=== PATIENT | female | born 1960 | race Caucasian/White ===

== ENCOUNTER 2020-04-30 06:44 | Outpatient (REF) | payer OTHER, SELFPAY ==
[2020-04-30 10:19] LABS: MANUAL DIFF FLAG NO
[2020-04-30 10:24] LABS: Eosinophils Percent Auto 0.7 % (0-4); Hematocrit 40.7 % (37-47); Hemoglobin 12.8 g/dl (12.0-16.0); Imm Gran Abs Auto 0.01 X10*3/uL (0.00-0.03); Imm Gran Pct Auto 0.2 % (0.0-0.4); Lymphocytes Absolute Auto 1.4 X10*3/uL (1.2-4.9); Lymphocytes Percent Auto 34.7 % (20-40); Mean Corpuscular HGB Conc 31.4 g/dl (31.0-35.0); Mean Corpuscular Hemoglobin 29.7 pg (27.0-33.0); Mean Corpuscular Volume 94.4 fL (80-98); Monocytes Absolute Auto 0.4 X10*3/uL (0.1-1.2); Monocytes Percent Auto 10.7 % (2-11); Neutrophils Absolute Auto 2.1 X10*3/uL (2.0-8.3); Neutrophils Percent Auto 52.7 % (45-73); Platelet Count 257 X10*3/uL (160-400); Red Blood Count 4.31 X10*6/uL (4.20-5.50); Red Cell Distribution Width 12.6 % (11.0-16.0)
[2020-04-30 10:45] LABS: Alanine Aminotransferase 20 U/L (0-31); Albumin Level 4.9 g/dL (3.5-5.0); Alkaline Phosphatase 54 U/L (39-117); Anion Gap 14 (12-20); Aspartate Amino Transferase 21 U/L (5-31); Bilirubin Total 0.5 mg/dL (0.0-1.0); Blood Urea Nitrogen 23 mg/dL (9-16); C Reactive Protein 0.05 mg/dL (< or = 0.50); Calcium 9.7 mg/dL (8.4-10.2); Carbon Dioxide 29 mmol/L (22-29); Chloride 101 mmol/L (96-108); Estimated Glomerular Filt Rate > 60; Glucose Random 93 mg/dL (60-115); Potassium 4.6 mmol/l (3.3-5.1); Sodium 139 mmol/L (135-145); Total Protein 7.9 g/dL (6.5-8.0)
[2020-04-30 10:55] LABS: Glucose Urine UA NEG (NEG); Leukocyte Esterase Urine NEG (NEG); Nitrite Urine NEG (NEG); Specific Gravity - Urine 1.015 (1.005-1.025); Urine Blood NEG (NEG); Urine Ketones NEG (NEG); Urine Protein NEG (NEG-TRACE)
[2020-04-30 10:57] LABS: Appearance Urine CLEAR; Color Urine YELLOW
[2020-04-30 11:10] LABS: Free T4 (Free Thyroxine) 0.87 ng/dL (0.71-1.85); Thyroid Stimulating Hormone 2.06 uIU/mL (0.32-4.0)
[2020-04-30 11:16] LABS: Erythrocyte Sedimentation Rate 6 MM/HR (0-20)
[2020-04-30 11:27] LABS: Folate > 20.0 ng/mL (> or = 4.0); Vitamin B12 278 pg/mL (200-900)
== END 2020-04-30 06:45 | disposition home or self-care (01) ==
LOC: HO.LAB 06:44
PROVIDERS: PCP Internal Medicine; Visit Provider Internal Medicine
DX: M62.81 Muscle weakness (generalized) (principal)
CPT/HCPCS: 36415; 80053; 81003; 82607; 82746; 84439; 84443; 85025; 85652; 86140

== ENCOUNTER 2020-05-29 10:39 | Outpatient (REF) | payer OTHER, SELFPAY ==
--- NOTE | 2020-05-29 10:43 | MM_ITS ---
EXAMINATION: MM SCREENING DIGITAL BREAST TOMOSYNTHESIS, BILATERAL CLINICAL INFORMATION: Screening. Asymptomatic. The lifetime risk of breast cancer based on the Tyrer-Cuzick Model is 13%. COMPARISON: Mammography: 11/10/2018, 09/12/2017, 08/03/2016 TECHNIQUE: Digital breast tomosynthesis is performed in both the craniocaudal and mediolateral oblique views along with computer-aided detection (CAD). Synthesized 2D images are generated from the tomosynthesis. FINDINGS: The breasts are heterogeneously dense, which may obscure small masses (ACR BI-RADS breast composition Category c). Breast tissue composition borders on extremely dense. There are no significant masses, abnormal calcifications, or other abnormalities. Parenchymal pattern is similar to prior exams. No developing density. No significant changes. MM/MM tomosynthesis screening BI IMPRESSION: No significant changes from prior study. ASSESSMENT: BI-RADS 1: Negative RECOMMENDATION: Routine annual mammography screening. This patient's information was entered into a reminder system with a target due date for their next mammogram.
== END 2020-05-29 10:40 | disposition home or self-care (01) ==
LOC: HO.MAMMO 10:39
PROVIDERS: PCP Internal Medicine; Visit Provider Obstetrics & Gynecology Female Pelvic Medicine and Reconstructive Surgery
DX: Z12.31 Encounter for screening mammogram for malignant neoplasm of breast (principal)
CPT/HCPCS: 77063; 77067

== ENCOUNTER 2020-07-11 06:42 | Outpatient (REF) | payer OTHER, SELFPAY ==
[2020-07-11 07:44] LABS: Alanine Aminotransferase 20 U/L (0-31); Albumin Level 4.9 g/dL (3.5-5.0); Alkaline Phosphatase 52 U/L (39-117); Aspartate Amino Transferase 21 U/L (5-31); Bilirubin Direct 0.2 mg/dL (0.0-0.5); Bilirubin Total 0.6 mg/dL (0.0-1.0); Total Protein 7.8 g/dL (6.5-8.0)
== END 2020-07-11 06:43 | disposition home or self-care (01) ==
LOC: HO.LAB 06:42
PROVIDERS: PCP Internal Medicine; Visit Provider Podiatrist
DX: B35.1 Tinea unguium (principal)
CPT/HCPCS: 36415; 80076

== ENCOUNTER 2020-08-11 15:34 | Outpatient (REF) | payer OTHER, SELFPAY | END 2020-08-11 15:35 | disposition home or self-care (01) | LOC: HO.SH 15:34 | PROVIDERS: Visit Provider Internal Medicine | DX: Z13.89 Encounter for screening for other disorder (principal) ==

== ENCOUNTER 2020-09-04 15:41 | Outpatient (REF) | payer OTHER, SELFPAY ==
[2020-09-04 17:24] LABS: MANUAL DIFF FLAG NO
[2020-09-04 17:33] LABS: Basophils Absolute Auto 0.1 X10*3/uL (0.0-0.2); Eosinophils Percent Auto 0.8 % (0-4); Hematocrit 39.5 % (37-47); Hemoglobin 12.4 g/dl (12.0-16.0); Imm Gran Abs Auto 0.01 X10*3/uL (0.00-0.03); Imm Gran Pct Auto 0.2 % (0.0-0.4); Lymphocytes Absolute Auto 1.6 X10*3/uL (1.2-4.9); Lymphocytes Percent Auto 32.6 % (20-40); Mean Corpuscular HGB Conc 31.4 g/dl (31.0-35.0); Mean Corpuscular Hemoglobin 29.7 pg (27.0-33.0); Mean Corpuscular Volume 94.5 fL (80-98); Mean Platelet Volume 9.8 fL (9.4-12.3); Monocytes Absolute Auto 0.6 X10*3/uL (0.1-1.2); Monocytes Percent Auto 11.4 % (2-11); Neutrophils Absolute Auto 2.6 X10*3/uL (2.0-8.3); Platelet Count 261 X10*3/uL (160-400); Red Blood Count 4.18 X10*6/uL (4.20-5.50); Red Cell Distribution Width 12.6 % (11.0-16.0); White Blood Count 4.8 X10*3/uL (4.8-10.8)
[2020-09-04 17:59] LABS: Alanine Aminotransferase 22 U/L (0-31); Albumin Level 4.7 g/dL (3.5-5.0); Alkaline Phosphatase 51 U/L (39-117); Anion Gap 15 (12-20); Aspartate Amino Transferase 23 U/L (5-31); Bilirubin Total 0.4 mg/dL (0.0-1.0); Blood Urea Nitrogen 28 mg/dL (9-16); C Reactive Protein 0.07 mg/dL (< or = 0.50); Calcium 9.6 mg/dL (8.4-10.2); Carbon Dioxide 29 mmol/L (22-29); Chloride 101 mmol/L (96-108); Estimated Glomerular Filt Rate > 60; Glucose Random 88 mg/dL (60-115); Potassium 4.5 mmol/L (3.3-5.1); Sodium 140 mmol/L (135-145); Total Protein 7.6 g/dL (6.5-8.0)
[2020-09-04 18:23] LABS: Thyroid Stimulating Hormone 2.08 uIU/mL (0.32-4.0)
[2020-09-04 19:08] LABS: Erythrocyte Sedimentation Rate 7 MM/HR (0-20)
[2020-09-08 12:21] LABS: Vitamin D 25-OH, D2 <4 ng/mL; Vitamin D 25-OH, D3 44 ng/mL; Vitamin D 25-OH, Total 44 ng/mL (30-100)
== END 2020-09-04 15:42 | disposition home or self-care (01) ==
LOC: HO.LAB 15:41
PROVIDERS: PCP Internal Medicine; Visit Provider Student in an Organized Health Care Education/Training Program
DX: M25.50 Pain in unspecified joint (principal); M62.81 Muscle weakness (generalized)
CPT/HCPCS: 36415; 80053; 82085; 82306; 82550; 84443; 85025; 85652; 86140

== ENCOUNTER → 2020-09-25 15:54 | Outpatient (BNVA) | payer OTHER, SELFPAY | PROVIDERS: PCP Internal Medicine; Visit Provider Student in an Organized Health Care Education/Training Program ==

== ENCOUNTER 2021-02-19 15:32 | Outpatient (REF) | payer OTHER, SELFPAY ==
--- NOTE | 2021-02-20 08:47 | MHC.AU.AHA ---
Adult Audiological Evaluation Date of Visit: 02/19/21 [place] Judge Used: Not Applicable Reason for Appointment: Audiologic re-evaluation due to increased hearing difficulties, left ear greater than right. Previous Hearing Test Results: 12/31/2019 [facility] Left Ear - Moderate mixed hearing loss with 96% speech understanding. Right Ear - Moderately-severe to profound mixed hearing loss with 60% speech discrimination Ear History: Previous Ear Surgery: Stapedectomy for Otosclerosis 1990 Medical History: Medication List: Lamisil, Omeprozol (PRN), Vitamins Hearing Instrument History- Right Ear: Leather Production Worker: Phonak Model: Virto V90-10 O [facility] Serial Number: [id number] Battery Size: 10 Repair Warranty: 05/21/2018 Dispensed By: [facility] Date of Fittin04/29/2015 Hearing Instrument History- Left Ear: Leather Production Worker: Phonak Model: Virto V90-10 O [facility] Serial Number: [id number] Battery Size: 10 Warranty: 05/21/2018 Loss and Damage Warranty: 05/21/2018 Date of Fittin03/28/2015 Otoscopy: Right Ear: Unremarkable Left Ear: Partially occluding cerumen removed prior to test today. Tympanometry: Tympanometry performed due to: To assess integrity of the middle ear system Right Ear: Normal Middle Ear System (Type A) Left Ear: Normal Middle Ear System (Type A) Hearing Evaluation: Transducer(s) Used: Insert Earphones Bone Conduction Method: Conventional Audiometry Stimuli Used: Pure Tones Right Ear: Description of Hearing: Moderately to profound mixed hearing loss Left Ear: Description of Hearing: Mild to moderate mixed hearing loss. Speech Recognition Threshold (SRT): Method Used: Monitored Live Voice Stimuli Used: Spondee Words Right Ear: 60 dB HL Left Ear: 35 dB HL Word Discrimination: Method: Recorded Lists Word Lists Used: NU-6 Right Ear: 60% at 90 dB HL Left Ear: 96% at 75 dB HL Most Comfortable Level (MCL): Right Ear: 90 dB HL Left Ear: Comparison: Compared to most recent evaluation: Overall right ear thresholds have improved 5 dB and left ear decreased overall 5 dB. Speech discrimination has remained stable for both ears. Recommendations: Audiological re-evaluation in one year. Will send a reminder card. Hearing aid maintenance performed today. Hearing aid(s) reprogrammed with updated test results. Diagnosis: Primary Diagnosis: H90.6 Mixed Hearing Loss, Bilateral Services Performed: Comprehensive Audiological Evaluation (CPT 77714) Tympanometry (CPT 89702) Signature: Provider: Sandrita Jett, [place]
== END 2021-02-19 15:33 | disposition home or self-care (01) ==
LOC: HO.SH 15:32
PROVIDERS: Visit Provider Internal Medicine
DX: H90.6 Mixed conductive and sensorineural hearing loss, bilateral (principal)
CPT/HCPCS: 92557; 92567

== ENCOUNTER 2021-05-08 06:23 | Outpatient (REF) | payer OTHER, SELFPAY ==
--- NOTE | ~2021-05-08 | XR_ITS ---
EXAMINATION: XR LUMBOSACRAL SPINE CLINICAL INFORMATION: Low back pain COMPARISON: None TECHNIQUE: Three views of the lumbosacral spine. FINDINGS: There may be a transitional vertebral body segment or 6 lumbar-type vertebral bodies. For the purposes of this dictation, the transitional segment is designated superiorly with the top of the iliac crest at the L4-L5 disc space level. Bone alignment is normal. No fracture or dislocation is seen. There is mild degenerative spondylosis from L1-L2 to L4-L5. There is degenerative disc disease at L3-L4 and L4-L5. There is lower lumbar spine facet arthritis. XR/XR lumbar spine 2-3V IMPRESSION: Probable transitional vertebral body segment. Degenerative changes.
[2021-05-08 06:29] LABS: MANUAL DIFF FLAG NO
[2021-05-08 07:20] LABS: Basophils Absolute Auto 0.1 X10*3/uL (0.0-0.2); Basophils Percent Auto 1.2 % (0-2); Eosinophils Absolute Auto 0.1 X10*3/uL (0.0-0.4); Eosinophils Percent Auto 1.9 % (0-4); Hematocrit 40.2 % (37.0-47.0); Lymphocytes Absolute Auto 1.4 X10*3/uL (1.2-4.9); Lymphocytes Percent Auto 32.8 % (20-40); Mean Corpuscular HGB Conc 32.3 g/dl (31.0-35.0); Mean Corpuscular Hemoglobin 30.9 pg (27.0-33.0); Mean Corpuscular Volume 95.5 fL (80.0-98.0); Mean Platelet Volume 9.7 fL (9.4-12.3); Monocytes Absolute Auto 0.6 X10*3/uL (0.1-1.2); Neutrophils Absolute Auto 2.2 x10*3/uL (2.0-8.3); Neutrophils Percent Auto 51.1 % (45-73); Platelet Count 229 X10*3/uL (160-400); Red Blood Count 4.21 X10*6/uL (4.20-5.50); Red Cell Distribution Width 12.5 % (11.0-16.0); White Blood Count 4.3 X10*3/uL (4.8-10.8)
[2021-05-08 07:52] LABS: Alanine Aminotransferase 18 U/L (0-31); Albumin Level 4.9 g/dL (3.5-5.0); Alkaline Phosphatase 57 U/L (39-117); Anion Gap 13 (12-20); Aspartate Amino Transferase 21 U/L (5-31); Bilirubin Total 0.7 mg/dL (0.0-1.0); Blood Urea Nitrogen 26 mg/dL (9-16); Carbon Dioxide 27 mmol/L (22-29); Chloride 106 mmol/L (96-108); Cholesterol 273 mg/dL; Estimated Glomerular Filt Rate > 60; Glucose Random 88 mg/dL (60-115); HDL Cholesterol 94 mg/dL; LDL Cholesterol Calculated 158 mg/dl; Potassium 4.2 mmol/L (3.3-5.1); Sodium 142 mmol/L (135-145); Total Protein 7.8 g/dL (6.5-8.0); Triglycerides 109 mg/dL
[2021-05-08 08:15] LABS: Free T4 (Free Thyroxine) 0.87 ng/dL (0.71-1.85); Vitamin D 25-OH Total 34.9 ng/mL (>30)
[2021-05-08 08:26] LABS: Folate 19.9 ng/mL (> or = 4.0); Vitamin B12 414 pg/mL (200-900)
== END 2021-05-08 06:24 | disposition home or self-care (01) ==
LOC: HO.LAB 06:23
PROVIDERS: PCP Internal Medicine; Visit Provider Internal Medicine
DX: M54.50 Low back pain, unspecified (principal); E78.00 Pure hypercholesterolemia, unspecified
CPT/HCPCS: 36415; 72100; 80053; 80061; 82306; 82607; 82746; 84439; 84443; 85025

== ENCOUNTER 2021-06-30 15:39 | Outpatient (REF) | payer OTHER, SELFPAY ==
--- NOTE | ~2021-06-30 | MM_ITS ---
EXAMINATION: MM SCREENING DIGITAL BREAST TOMOSYNTHESIS, BILATERAL CLINICAL INFORMATION: Screening. Asymptomatic. Family history breast cancer, mother. The lifetime risk of breast cancer based on the Tyrer-Cuzick Model is 11%. COMPARISON: Mammography: 05/29/2020, 11/10/2018, 09/12/2017, 08/03/2016, 07/17/2015, 06/26/2014, 06/11/2013, 08/02/2011, 05/25/2012 TECHNIQUE: Digital breast tomosynthesis is performed in both the craniocaudal and mediolateral oblique views along with computer-aided detection (CAD). Synthesized 2D images are generated from the tomosynthesis. FINDINGS: The breasts are heterogeneously dense, which may obscure small masses (ACR BI-RADS breast composition Category c). Breast tissue composition borders on extremely dense. Left breast parenchymal pattern is similar to prior studies. There is no developing density or interval mass or architectural abnormality. Neither breast shows abnormal calcifications. The axilla and skin contours are unremarkable. Right MLO view has subtle nodular asymmetric density in near the axillary fold 13 cm from nipple. Finding is similar to remote prior MLO views from 2011 and 2016. Suspect artifact related to positioning with shifting fibroglandular tissue and/or summation artifact. Patient be recalled to obtain additional views. MM/MM tomosynthesis screening BI IMPRESSION: 1. Right: Subtle nodular asymmetric density near axillary fold upper right breast likely artifact from shifting fibroglandular tissue and/or summation artifact. 2. Left: No mammographic evidence of malignancy. ASSESSMENT: BI-RADS 0: Incomplete - Need Additional Imaging Evaluation RECOMMENDATION: 1. Additional views of the right breast (spot MLO; standard MLO changed angle). 2. Targeted ultrasound if warranted after review of the additional views. 3. Radiology department staff will contact the patient for additional imaging. This patient's information was entered into a reminder system with a target due date for their next mammogram.
== END 2021-06-30 15:40 | disposition home or self-care (01) ==
LOC: HO.MAMMO 15:39
PROVIDERS: Absent Provider Obstetrics & Gynecology Female Pelvic Medicine and Reconstructive Surgery; PCP Internal Medicine; Visit Provider Internal Medicine
DX: Z12.31 Encounter for screening mammogram for malignant neoplasm of breast (principal)
CPT/HCPCS: 77063; 77067

== ENCOUNTER 2021-07-14 14:24 | Outpatient (REF) | payer OTHER, SELFPAY ==
--- NOTE | ~2021-07-14 | MM_ITS ---
EXAMINATION: MM DIAGNOSTIC DIGITAL BREAST TOMOSYNTHESIS, RIGHT CLINICAL INFORMATION: Recall from screening for question of nodular asymmetric density near axillary fold upper right breast, suspect artifact from shifting fibroglandular tissue and/or summation artifact. Family history breast cancer, mother. TC score 11%. COMPARISON: Mammography: 06/30/2021, 05/29/2020, 11/10/2018, 09/12/2017, 08/03/2016 TECHNIQUE: Digital breast tomosynthesis is performed. 2D images are generated from the tomosynthesis. The following views are obtained: Spot MLO, standard MLO changed angle. FINDINGS: The breasts are heterogeneously dense, which may obscure small masses (ACR BI-RADS breast composition Category c). Breast tissue composition borders on extremely dense. The additional views show parenchymal pattern posterior upper right breast similar to prior exams. There is no developing density or interval mass or architectural abnormality. No significant changes. Results are discussed with the patient at time of visit. MM/MM tomosynthesis added views R IMPRESSION: Additional views show parenchymal pattern similar to prior studies. ASSESSMENT: BI-RADS 2: Benign RECOMMENDATION: Routine annual mammography screening. This patient's information was entered into a reminder system with a target due date for their next mammogram.
== END 2021-07-14 14:25 | disposition home or self-care (01) ==
LOC: HO.MAMMO 14:24
PROVIDERS: Visit Provider Internal Medicine
DX: R92.2 Inconclusive mammogram (principal)
CPT/HCPCS: 77061; 77065

== ENCOUNTER 2022-04-23 07:59 | Outpatient (REF) | payer OTHER, SELFPAY ==
--- NOTE | 2022-04-23 12:37 | MHC.AU.HFU ---
Hearing Instrument Follow-Up- Binaural Date of Visit: 04/23/22 Right Ear: Jewelry Casting Model Maker: Phonak Virto V 90-10 O [facility] #[id number] Repair Warranty: 05/21/2018 Loss and Damage Warranty: 05/21/2018 Battery Size: 10 Type of Wax Guard: Cerustop Dispensed By: [facility] Date of Fittin04/29/2015 Left Ear: Jewelry Casting Model Maker: Phonak Virto V 90-10 O [facility] #[id number] Repair Warranty: 05/21/2018 Loss and Damage Warranty: 05/21/2018 Battery Size: 10 Type of Wax Guard: Cerustop Dispensed By: [facility] Date of Fittin03/28/2015 Follow-Up Summary: Patient seen for an audiologic re-evaluation with overall thresholds for both ears decreasing approximately 5 dB HL. Reprogrammed both hearing aids to today's results. CLeaned aids, receivers, microphones, and changed wax guards. Both aids amplifying clearly. Recommendations: Recommendations: Hearing instrument follow-up or maintenance as needed., Please contact our clinic with any questions or concerns. Recommendations (Other): Audiologic re-evaluation in one year to monitor. Will send reminder card. Diagnosis Code(s): Primary Diagnosis: H90.3 Bilateral Sensorineural Hearing Loss Signature: Provider: Emiliano Jett, [place]
== END 2022-04-23 08:00 | disposition home or self-care (01) ==
LOC: HO.SH 07:59
PROVIDERS: Visit Provider Internal Medicine
DX: Z01.118 Encounter for examination of ears and hearing with other abnormal findings (principal); H90.3 Sensorineural hearing loss, bilateral
CPT/HCPCS: 92557; 92567

== ENCOUNTER 2022-07-06 15:02 | Outpatient (REF) | payer OTHER, SELFPAY ==
--- NOTE | ~2022-07-06 | MM_ITS ---
EXAMINATION: MM SCREENING DIGITAL BREAST TOMOSYNTHESIS, BILATERAL CLINICAL INFORMATION: Screening. Asymptomatic. The lifetime risk of breast cancer based on the Tyrer-Cuzick Model is 10%. COMPARISON: Mammography: 06/30/2021, 05/29/2020, 11/10/2018, 09/12/2017 TECHNIQUE: Digital breast tomosynthesis is performed in both the craniocaudal and mediolateral oblique views along with computer-aided detection (CAD). Synthesized 2D images are generated from the tomosynthesis. FINDINGS: The breasts are heterogeneously dense, which may obscure small masses (ACR BI-RADS breast composition Category c). Fibronodular parenchymal pattern is similar to prior studies. Breast tissue composition borders on extremely dense. There is no developing density or architectural abnormality. No abnormal calcifications. The axilla and skin contours are unremarkable. No significant changes from prior studies. MM/MM tomosynthesis screening BI IMPRESSION: No mammographic evidence of malignancy. ASSESSMENT: BI-RADS 1: Negative RECOMMENDATION: Routine annual mammography screening. This patient's information was entered into a reminder system with a target due date for their next mammogram.
--- NOTE | ~2022-07-06 | MM_ITS ---
EXAMINATION: BONE DENSITOMETRY CLINICAL INDICATION: Menopausal. COMPARISON: Previous BD dated 02/06/2019 and baseline BD dated 02/09/2008. TECHNIQUE: Using a Minutizer DXA System (software version: 13.1) manufactured by [employer], dual-energy x-ray absorptiometry was performed of the lumbar spine and left hip. The images are of good technical quality. Summary results are attached. FINDINGS: AP SPINE L1-L2 (excluding L3 and L4): The data of L1-L4 has been changed to exclude the L3 and L4 vertebral bodies, because degenerative changes at these levels may cause overestimation of lumbar spine density. Current: BMD 1.202 g/cm2, Z-score 1.9, T-score 0.3, normal, 0.4% decrease from previous, 0.2% decrease from baseline (<5% change is not significant). Prior: BMD 1.207 g/cm2. Baseline: BMD 1.204 g/cm2. LEFT FEMUR, NECK: Current: BMD 0.746 g/cm2, Z-score -0.6, T-score -2.1, osteopenia. Prior: BMD 0.744 g/cm2. Baseline: BMD 0.848 g/cm2. LEFT FEMUR, TOTAL: Current: BMD 0.909 g/cm2, Z-score 0.4, T-score -0.8, normal, 2.0% decrease from previous, 9.6% decrease from baseline (<5% change is not significant). Prior: BMD 0.928 g/cm2. Baseline: BMD 1.006 g/cm2. IDENTIFIED RISK FACTORS: Secondary osteoporosis (early menopause). HISTORY OF FRACTURE: None listed. MEDICATIONS: Calcium supplement or multivitamin. Vitamin D. MM/XR DEXA axial skeleton IMPRESSION: 1. DIAGNOSIS: Osteopenia based on the lowest T-score value of -2.1 in the femoral neck applying World Health Organization criteria. 2. 10-YEAR FRACTURE RISK PREDICTION, FRAX: Major osteoporotic fracture (clinical spine, forearm, hip or shoulder) 9.8%. Hip fracture 1.4%. 3. Treatment Recommendations: NOF guidelines recommend consideration for treatment in postmenopausal women and men age 50 and older presenting with the following: -A hip or vertebral (clinical or morphometric) fracture. -T-score less than or equal to -2.5 at the femoral neck or spine after appropriate evaluation to exclude secondary causes. -Low bone mass at the hip or spine and a 10-year fracture probability by FRAX of greater than or equal to 3% for hip fracture or greater than or equal to 20% for major osteoporotic fracture based on the [place] adapted WHO algorithm. 4. Other Recommendations: All treatment decisions require clinical judgment and consideration of individual patient factors, including patient preferences, comorbidities, previous drug use, risk factors not captured in the FRAX model (e.g. frailty, falls, vitamin D deficiency, increased bone turnover, interval significant decline in bone density) and possible under or overestimation of fracture risk by FRAX. Additional medical evaluation for secondary cause of low bone mineral density may be appropriate. FUTURE SCAN RECOMMENDATION: People with diagnosed cases of osteoporosis or at high risk for fracture should have regular bone mineral density tests. For patients eligible for Medicare, routine testing is allowed once every 2 years. The testing frequency can be increased to one year for patients who have rapidly progressing disease, those who are receiving or discontinuing medical therapy to restore bone mass, or have additional risk factors.
== END 2022-07-06 15:03 | disposition home or self-care (01) ==
LOC: HO.MAMMO 15:02
PROVIDERS: PCP Internal Medicine; Visit Provider Obstetrics & Gynecology Female Pelvic Medicine and Reconstructive Surgery
DX: Z12.31 Encounter for screening mammogram for malignant neoplasm of breast (principal); Z13.820 Encounter for screening for osteoporosis; Z78.0 Asymptomatic menopausal state
CPT/HCPCS: 77063; 77067; 77080

== ENCOUNTER 2022-08-27 06:40 | Outpatient (REF) | payer OTHER, SELFPAY ==
[2022-08-27 07:57] LABS: Alanine Aminotransferase 162 U/L (0-31); Albumin Level 4.8 g/dL (3.5-5.0); Alkaline Phosphatase 68 U/L (39-117); Aspartate Amino Transferase 98 U/L (5-31); Bilirubin Direct 0.2 mg/dL (0.0-0.5); Bilirubin Total 0.9 mg/dL (0.0-1.0); Total Protein 7.8 g/dL (6.5-8.0)
== END 2022-08-27 06:41 | disposition home or self-care (01) ==
LOC: HO.LAB 06:40
PROVIDERS: PCP Internal Medicine; Visit Provider Podiatrist
DX: B35.1 Tinea unguium (principal)
CPT/HCPCS: 36415; 80076

== ENCOUNTER 2022-09-24 06:40 | Outpatient (REF) | payer OTHER, SELFPAY ==
[2022-09-24 08:26] LABS: Alanine Aminotransferase 127 U/L (0-31); Albumin Level 4.5 g/dL (3.5-5.0); Alkaline Phosphatase 65 U/L (39-117); Aspartate Amino Transferase 71 U/L (5-31); Bilirubin Direct 0.2 mg/dL (0.0-0.5); Bilirubin Total 0.8 mg/dL (0.0-1.0); Total Protein 6.9 g/dL (6.5-8.0)
== END 2022-09-24 06:41 | disposition home or self-care (01) ==
LOC: HO.LAB 06:40
PROVIDERS: Visit Provider Podiatrist
DX: B35.1 Tinea unguium (principal)
CPT/HCPCS: 36415; 80076

== ENCOUNTER 2022-10-15 06:29 | Outpatient (REF) | payer OTHER, SELFPAY ==
[2022-10-15 06:35] LABS: MANUAL DIFF FLAG NO
[2022-10-15 07:20] LABS: Basophils Absolute Auto 0.1 X10*3/uL (0.0-0.2); Basophils Percent Auto 1.3 % (0-2); Eosinophils Absolute Auto 0.1 X10*3/uL (0.0-0.4); Eosinophils Percent Auto 1.3 % (0-4); Hemoglobin 13.5 g/dl (12.0-16.0); Lymphocytes Absolute Auto 1.6 X10*3/uL (1.2-4.9); Lymphocytes Percent Auto 40.9 % (20-40); Mean Corpuscular HGB Conc 32.1 g/dl (31.0-35.0); Mean Corpuscular Hemoglobin 29.2 pg (27.0-33.0); Mean Corpuscular Volume 90.7 fL (80.0-98.0); Mean Platelet Volume 9.7 fL (9.4-12.3); Monocytes Absolute Auto 0.4 X10*3/uL (0.1-1.2); Monocytes Percent Auto 9.8 % (2-11); Neutrophils Absolute Auto 1.8 x10*3/uL (2.0-8.3); Neutrophils Percent Auto 46.7 % (45-73); Platelet Count 250 X10*3/uL (160-400); Red Blood Count 4.63 X10*6/uL (4.20-5.50); Red Cell Distribution Width 12.5 % (11.0-16.0); White Blood Count 3.9 X10*3/uL (4.8-10.8)
[2022-10-15 08:04] LABS: Alanine Aminotransferase 86 U/L (0-31); Albumin Level 4.6 g/dL (3.5-5.0); Alkaline Phosphatase 64 U/L (39-117); Anion Gap 16 (12-20); Aspartate Amino Transferase 48 U/L (5-31); Bilirubin Total 0.8 mg/dL (0.0-1.0); Blood Urea Nitrogen 26 mg/dL (9-16); Calcium 9.9 mg/dL (8.4-10.2); Carbon Dioxide 27 mmol/L (22-29); Chloride 105 mmol/L (96-108); Cholesterol 240 mg/dL; Estimated Glomerular Filt Rate > 60; Glucose Random 83 mg/dL (60-115); HDL Cholesterol 77 mg/dL; LDL Cholesterol Calculated 149 mg/dl; Potassium 4.6 mmol/L (3.3-5.1); Sodium 143 mmol/L (135-145); Total Protein 7.3 g/dL (6.5-8.0); Triglycerides 73 mg/dL
[2022-10-15 08:38] LABS: Folate 15.1 ng/mL (> or = 4.0); Free T4 (Free Thyroxine) 0.84 ng/dL (0.71-1.85); Thyroid Stimulating Hormone 3.04 uIU/mL (0.32-4.0); Vitamin B12 546 pg/mL (200-900); Vitamin D 25-OH Total 76.4 ng/mL (>30)
== END 2022-10-15 06:30 | disposition home or self-care (01) ==
LOC: HO.LAB 06:29
PROVIDERS: PCP Internal Medicine; Visit Provider Internal Medicine
DX: E78.00 Pure hypercholesterolemia, unspecified (principal); E55.9 Vitamin D deficiency, unspecified
CPT/HCPCS: 36415; 80053; 80061; 82306; 82607; 82746; 84439; 84443; 85025

== ENCOUNTER 2022-11-10 06:55 | Outpatient (REF) | payer OTHER, SELFPAY ==
--- NOTE | ~2022-11-10 | XR_ITS ---
EXAMINATION: XR CERVICAL SPINE CLINICAL INFORMATION: Pain COMPARISON: None available. TECHNIQUE: 5 views of the cervical spine including bilateral oblique views, were obtained. FINDINGS: There is mild curvature of the lower cervical and upper thoracic spine to the left. There is mild 2 mm anterior subluxation of C4 with respect to C5. Bone alignment is otherwise normal. No fracture or dislocation. Degenerative spondylosis and degenerative disc disease at C5-C6 and C6-C7. Right-sided neuroforaminal narrowing from bony osteophyte at C5-C6 and C6-C7. Left-sided neuroforaminal narrowing from bony osteophyte at C5-C6 and C6-C7. Prevertebral soft tissues are normal. XR/XR cervical spine 5V IMPRESSION: Degenerative changes.
== END 2022-11-10 06:56 | disposition home or self-care (01) ==
LOC: HO.XRAY 06:55
PROVIDERS: PCP Internal Medicine; Visit Provider Internal Medicine
DX: M54.2 Cervicalgia (principal)
CPT/HCPCS: 72050

== ENCOUNTER 2022-11-16 06:56 | Outpatient (REF) | payer OTHER, SELFPAY ==
--- NOTE | ~2022-11-16 | US_ITS ---
EXAMINATION: US ABDOMEN COMPLETE CLINICAL INFORMATION: LFT elevation. COMPARISON: None available. TECHNIQUE: Real-time imaging of the abdominal viscera. FINDINGS: PANCREAS: Normal. ABDOMINAL AORTA: The proximal, mid, and distal segments are normal in caliber. INFERIOR VENA CAVA: Visualized portions are normal. LIVER: The liver is normal in size. The liver contour is normal. Liver echotexture is slightly increased. No focal hepatic lesion. There is no intrahepatic biliary duct dilatation seen. GALLBLADDER: Normal. The gallbladder is physiologically distended without evidence of stones, sludge, polyps, wall thickening or pericholecystic fluid. COMMON BILE DUCT: Normal in caliber measuring 0.5 cm in diameter. RIGHT KIDNEY: Normal. No hydronephrosis. No renal calculi or focal parenchymal lesions. The kidney measures 11.3 cm in maximum dimension. LEFT KIDNEY: 3 cm cyst in the midpole with single thin septation. No imaging follow-up recommended. No hydronephrosis or renal calculi. The kidney measures 11.0 cm in maximum dimension. SPLEEN: Normal. The spleen measures 9.1 cm in maximum dimension. FREE FLUID: None. US/US abdomen complete IMPRESSION: Slightly echogenic liver.
== END 2022-11-16 06:57 | disposition home or self-care (01) ==
LOC: HO.US 06:56
PROVIDERS: PCP Internal Medicine; Visit Provider Internal Medicine
DX: R79.89 Other specified abnormal findings of blood chemistry (principal)
CPT/HCPCS: 76700

== ENCOUNTER 2022-12-22 06:54 | Outpatient (REF) | payer OTHER, SELFPAY ==
--- NOTE | 2022-12-22 08:33 | EMG_ITS ---
Please see scanned EMG / Nerve Conduction Report. MTDD
== END 2022-12-22 06:55 | disposition home or self-care (01) ==
LOC: HO.NEURO 06:54
PROVIDERS: PCP Internal Medicine; Visit Provider Internal Medicine
DX: G62.9 Polyneuropathy, unspecified (principal); R20.0 Anesthesia of skin
CPT/HCPCS: 95885; 95913

== ENCOUNTER 2023-01-11 16:00 | Outpatient (RCR) | payer OTHER, SELFPAY ==
--- NOTE | 2022-12-16 17:55 | MHC.PT.EP ---
[facility] [place] Office [place] Office [place] Office [address] [phone] F: [phone] F: [phone] F: [phone] F: [phone] Physical Therapy Plan of Care Date of Evaluation: Date of Surgery: Diagnosis: neck pain, cervicalgia Assessment: Patient is a pleasant, 62 y.o. 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 Kady Silver MD with Dx of neck pain, cervicalgia. Her recent x-ray imaging reveals mild curvature of the lower cervical and upper thoracic spine to the left. There is mild 2 mm anterior subluxation of C4 on C5. Degenerative spondylosis and DDD at C5-C6 and C6-C7. Right-sided neuroforaminal narrowing from bony osteophyte at C5-C6 and C6-C7. Left-sided neuroforaminal narrowing from bony osteophyte at C5-C6 and C6-C7. Patient impairments include poor seated posture, limited ROM, weakness, pain, headaches, intermittent UE radicular sxs. Patient current functional limitations are difficulty sleeping, reading, reaching overhead, looking over shoulder to drive. Patient will benefit from skilled PT to address aforementioned impairments and functional limitations to meet established goals. Frequency and Duration: The patient will be seen 1-2x/week for 4 weeks Short Term Goals: 2 weeks Patient demonstrates consistency and independence with HEP to self manage symptoms. Patient demonstrates improved seated posture without cues to sit with cervical spine and shoulder sin neutral to reduce pain 2 levels on NPRS. Ict Help Desk Technician Goals: 4 weeks Patient presents with increased cervical rotation 55 degrees bilaterally to improve visibility looking over shoulders when driving. 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 Treatment Plan: Modalities to reduce pain, spasms and effusion. Manual therapy to restore motion and function. Therapeutic exercise to improve strength and flexibility. Neuromuscular re-education for posture and balance. Therapeutic activities to return to functional activities of daily living. Electronically signed by: Sebastian Saanbria, PT, DPT Please sign and return to therapist. Thank you for your referral.
--- NOTE | 2023-03-15 10:23 | MHC.PT.DC ---
[facility] [place] Office [place] Office [place] Office [address] Brittany Leigh [address] [phone] F: [phone] F: [phone] F: [phone] F: [phone] Physical Therapy Discharge Report Diagnosis: neck pain, cervicalgia Date of Surgery: Date of Evaluation: 12/16/22 Date of Discharge: 03/15/23 Treatments to Date: 5 Cancellations to Date: No Shows to Date: Discharge Status: Patient Elected to Stop Discharge Summary: Patient ceased attending PT on her own accord after PT visit on 01/11/23. She is therefore discharged from PT at this time. Electronically signed by: Sebastian Sanabria, PT, DPT Please sign and return to therapist. Thank you for your referral.
== END 2023-03-15 10:23 | disposition home or self-care (01) ==
LOC: HO.PT 16:00
PROVIDERS: PCP Internal Medicine; Visit Provider Internal Medicine
DX: M54.2 Cervicalgia (principal)
CPT/HCPCS: 97110; 97140; 97161

== ENCOUNTER 2023-01-28 06:44 | Outpatient (REF) | payer OTHER, SELFPAY ==
[2023-01-28 09:08] LABS: Cholesterol 262 mg/dL (<200); HDL Cholesterol 104 mg/dL (>40); LDL Cholesterol Calculated 144 mg/dL (<100); Triglycerides 71 mg/dL (<150)
[2023-01-28 10:19] LABS: HBS Num1 > 1000.00 mIU/mL (0-7.99); HBc Num1 0.11 S/CO (0.00-0.79); HBsAGNum1 0.31 S/CO (0.00-0.99); Hepatitis B Core Antibody Nonreactive (Nonreactive); Hepatitis B Surface Antigen Negative (Negative); ~HepC Num1 0.08 S/CO (0.00-0.79); ~Hepatitis B Surface Antibody REACTIVE (Nonreactive); ~Hepatitis C Antibody Nonreactive (Nonreactive)
== END 2023-01-28 06:45 | disposition home or self-care (01) ==
LOC: HO.LAB 06:44
PROVIDERS: PCP Internal Medicine; Visit Provider Internal Medicine
DX: E78.00 Pure hypercholesterolemia, unspecified (principal); R79.89 Other specified abnormal findings of blood chemistry
CPT/HCPCS: 36415; 80061; 86704; 86706; 86803; 87340

== ENCOUNTER 2023-02-08 15:42 | Outpatient (AMB) | payer OTHER, SELFPAY ==
[2023-02-08 15:45] VITALS: BP 116/60; PULSE 71; O2SAT 99; BMI 21.3
--- NOTE | 2023-02-08 15:45 | MHC.PC.OV ---
Vital Signs 02/08/23 15:45 Height 5 ft 3 in Weight 120 lb 8 oz BMI 21.3 BP 116/60 Blood Pressure Location Lt brachial Position Sitting Pulse 71 Pulse Source Pulse Oximeter Pulse Oximetry (%) 99 Oxygen Delivery Method Room Air Intake Visit Reasons: LFT elevation, bilateral feet numbness, neck pain Endoscopy Technican: Not Required per policy Accompanied by: Self / Same As Patient Allergies prochlorperazine [From COMPAZINE] Allergy (Severe, Verified 02/08/23 15:45) THROAT CLOSES Medication List - Last Reconciled 02/08/23 by Kady Silver MD ascorbate calcium (vitamin C) 500 mg PO DAILY calcium mg PO cholecalciferol (vitamin D3) 25 mcg PO DAILY cyanocobalamin (vitamin B-12) 1,000 mcg PO DAILY gabapentin 100 mg PO BEDTIME radu root-pyridoxine HCl(B6) 325-25 mg caps PO multivitamin 1 tab PO DAILY omega-3 fatty acids 1,500 mg PO DAILY omeprazole 20 mg PO DAILY 90 days psyllium husk (Daily Fiber) 0.52 grams PO DAILY Saccharomyces boulardii (Daily Probiotic (S. boulardii)) 5,000 mmu cells PO DAILY Tobacco use date assessed: 10/28/22 Dental Screening Dental Screen Date: 02/08/23 Did you have a dental visit in the last 12 months?: Yes Did you have a dental problem in the last 6 months where you did not have access to dental care?: No Was dental information given to patient?: Patient has dentist HPI LFT elevation, bilateral feet numbness, neck pain HPI Details 62-year-old female with hypercholesterol GERD elevated LFTs and peripheral neuropathy last seen in October 2022 patient also complained about neck pain and x-ray was done patient is here for follow-up. With a history of peripheral neuropathy and nerve conduction test was repeated December 2022 showing normal motor and sensory nerve conduction study of the lower extremities normal EMG of the left L4-S1 innervated muscles. With elevated LFT on ultrasound of the abdomen done gallbladder is physiologically distended without evidence of stones or sludge slightly echogenic liver most likely fatty liver. Cervical neck x-ray showing mild 2 mm anterior subluxation of the C4. Degenerative spondylosis and degenerative disc disease C5-C6 C6-C7 with right-sided neuroforaminal narrowing from bony osteophyte C5-C6 C6-C7, left-sided neuroforaminal narrowing from bony osteophyte C5-C6 C6-C7 left-sided PFSH Medical History GERD (gastroesophageal reflux disease) Hypercholesterolemia Mitral valve prolapse Neutropenia Surgical History H/O inguinal hernia repair H/O rotator cuff surgery H/O stapedectomy Family History Maternal Aunt Myocardial infarct Maternal Uncle Myocardial infarct Paternal Aunt Colon cancer Paternal Uncle Colon cancer Paternal Aunt Cervical cancer Maternal Grandmother Gastric ulcer Mother Breast cancer Social History Housing: House Alcohol intake: current Patient Tobacco Use Status: Never used Tobacco e-Cigarette/Vaping Use: Never Used Second Hand Smoke Exposure: No Current occupational status: employed Cognitive needs: No Hearing needs: No Vision needs: Yes Questionnaire PHQ-9 Over the last 2 weeks, how often have you been bothered by any of the following problems? 1. Little interest or pleasure in doing things: not at all 2. Feeling down, depressed, or hopeless: not at all 3. Trouble falling or staying asleep, or sleeping too much: not at all 4. Feeling tired or having little energy: not at all 5. Poor appetite or overeating: not at all 6. Feeling bad about yourself - or that you are a failure or have let yourself or your family down: not at all 7. Trouble concentrating on things, such as reading the newspaper or watching television: not at all 8. Moving or speaking so slowly that other people could have noticed. Or the opposite - being so fidgety or restless that you have been moving around a lot more than usual: not at all 9. Thoughts that you would be better off or of hurting yourself in some way: not at all Total score: 0 Depression Screening Interpretation: Negative Source: Developed by Drs. Afshin Menon, Gina Strong, Clark Galeano and colleagues, with an educational cesar from [employer]. Thrive Questionnaire Date Thrive assessed: 10/28/22 AUDIT C Alcohol Use Questionnaire (AUDIT-C) 1. How often do you have a drink containing alcohol?: Monthly or less 2. How many drinks containing alcohol do you have on a typical day when you are drinking?: 1 or 2 3. How often do you have six or more drinks on one occasion?: Never Total Score: 1 MOLINA-7 AMB Questionnaire MOLINA-7 Date MOLINA - 7 assessed: 10/28/22 Source: Developed by Drs. Afshin Menon, Gina Strong, Clark Galeano and colleagues, with an educational cesar from [employer]. Physical exam (Primary Care) Vital Signs: Last Vital Signs Pulse 71 02/08/23 15:45 BP 116/60 02/08/23 15:45 Pulse Ox 99 02/08/23 15:45 Oxygen Delivery Method Room Air 02/08/23 15:45 BMI result Body Mass Index 21.3 Tobacco/Smoking Status: Tobacco use Status Tobacco use date assessed 10/28/22 02/08/23 15:49 Patient Tobacco Use Status Never used Tobacco 02/08/23 15:49 Tobacco use type 05/04/21 14:09 e-Cigarette/Vaping Use Never Used 02/08/23 15:49 PHQ-9: PHQ-9 Score PHQ-9: Total score 0 02/08/23 15:49 Depression Screening Interpretation: Negative Thrive Assessment: Date of Thrive Assessment Date Thrive assessed 10/28/22 02/08/23 15:49 Const General: alert; No acute distress Eyes Conjunctivae: conjunctivae normal Resp Auscultation: clear to auscultation bilaterally Cardio Rate: regular rate Rhythm: regular rhythm GI Inspection: Yes normal to inspection Extrem General: Yes normal to inspection and No edema Assessment and Plan Assessment & Plan (1) Disc disease, degenerative, cervical: Code(s): M50.30 - Other cervical disc degeneration, unspecified cervical region Plan: Keep active and exercise avoid heavy lifting (2) Peripheral neuropathy: Comment: toe numbness bilateral 10/2022. retest 2022 resolved Code(s): G62.9 - Polyneuropathy, unspecified Plan: Nerve conduction test done revealing negative results (3) Fatty liver: Code(s): K76.0 - Fatty (change of) liver, not elsewhere classified Plan: Low-fat diet (4) Hypercholesterolemia: Code(s): E78.00 - Pure hypercholesterolemia, unspecified Plan: Avoid fried foods, chicken skin, eggs, butter margarine, pastries and meat. Be it pork or beef they have a lot of cholesterol LDL goal of less than 130 and triglyceride of less than 150 (5) GERD (gastroesophageal reflux disease): Comment: duodenal ulcer Code(s): K21.9 - Gastro-esophageal reflux disease without esophagitis Qualifiers: Esophagitis presence: without esophagitis Qualified Code(s): K21.9 - Gastro-esophageal reflux disease without esophagitis Plan: Avoid the foods that causes that usually spicy foods, tomato products, juices, coffee, soda and foods that your sensitive to. After eating do not lie down, allow 3-4 hours before in lie down. And keep the head of bed above 30 degrees to avoid the acid from going up.. Patient is on omeprazole 20 mg once a day (6) Basal cell carcinoma (BCC) of ala nasi: Comment: dermatology s/p MOHs Dr. Sterling Code(s): C44.311 - Basal cell carcinoma of skin of nose Coding Level of Care Code Est Pt Level 4 (80940) Diagnoses Disc disease, degenerative, cervical M50.30 Peripheral neuropathy G62.9 Fatty liver K76.0 Hypercholesterolemia E78.00 GERD (gastroesophageal reflux disease) K21.9 Esophagitis presence: without esophagitis Basal cell carcinoma (BCC) of ala nasi C44.311
== END 2023-02-08 16:12 | disposition home or self-care (01) ==
PROVIDERS: PCP Internal Medicine; Visit Provider Internal Medicine
DX: K21.9 Gastro-esophageal reflux disease without esophagitis (principal); K76.0 Fatty (change of) liver, not elsewhere classified; M50.30 Other cervical disc degeneration, unspecified cervical region; G62.9 Polyneuropathy, unspecified; E78.00 Pure hypercholesterolemia, unspecified; C44.311 Basal cell carcinoma of skin of nose
CPT/HCPCS: 99214

== ENCOUNTER 2023-05-31 15:40 | Outpatient (AMB) | payer OTHER, SELFPAY ==
[2023-05-31 16:01] VITALS: BP 116/70; PULSE 70; O2SAT 96; BMI 21.4
--- NOTE | 2023-05-31 16:01 | A.OFFPC_ITS ---
Vital Signs 05/31/23 16:01 Height 5 ft 3 in Weight 121 lb BMI 21.4 BP 116/70 Blood Pressure Location Lt brachial Position Sitting Pulse 70 Pulse Source Pulse Oximeter Pulse Oximetry (%) 96 Oxygen Delivery Method Room Air Intake Visit Reasons: Annual Exam Chemical Engineering Technologist Required: No Accompanied by: Self / Same As Patient Allergies prochlorperazine [From COMPAZINE] Allergy (Severe, Verified 05/31/23 16:02) THROAT CLOSES Medication List - Last Reconciled 05/31/23 by Kady Silver MD ascorbate calcium (vitamin C) 500 mg PO DAILY calcium mg PO cholecalciferol (vitamin D3) 25 mcg PO DAILY cyanocobalamin (vitamin B-12) 1,000 mcg PO DAILY radu root-pyridoxine HCl(B6) 325-25 mg caps PO multivitamin 1 tab PO DAILY omega-3 fatty acids 1,500 mg PO DAILY omeprazole 20 mg PO DAILY 90 days psyllium husk (Daily Fiber) 0.52 grams PO DAILY Saccharomyces boulardii (Daily Probiotic (S. boulardii)) 5,000 mmu cells PO DAILY Tobacco use date assessed: 10/28/22 Dental Screening Dental Screen Date: 05/31/23 Did you have a dental visit in the last 12 months?: Yes Did you have a dental problem in the last 6 months where you did not have access to dental care?: No Was dental information given to patient?: Patient has dentist HPI Annual Exam HPI Details 62-year-old female with a history of hyp ercholesterolemia fatty liver GERD with cervical degenerative disc disease coming in for physical exam last seen in February 2023. Patient's mammogram is due for next month bone density is up-to-date colonoscopy is up-to-date in due for next month. [facility] Medical History GERD (gastroesophageal reflux disease) Hypercholesterolemia Mitral valve prolapse Neutropenia Surgical History H/O rotator cuff surgery H/O stapedectomy H/O inguinal hernia repair Family History Maternal Aunt Myocardial infarct Maternal Uncle Myocardial infarct Paternal Aunt Colon cancer Paternal Uncle Colon cancer Paternal Aunt Cervical cancer Maternal Grandmother Gastric ulcer Mother Breast cancer Social History (Updated 05/31/23 @ 16:20 by Kady Silver MD) Housing: House Alcohol intake: current Comment: 2 days weekend 2-3 drinks Patient Tobacco Use Status: Never used Tobacco e-Cigarette/Vaping Use: Never Used Second Hand Smoke Exposure: No Current occupational status: employed Cognitive needs: No Hearing needs: No Vision needs: Yes Questionnaire Thrive Questionnaire Date Thrive assessed: 10/28/22 MOLINA-7 AMB Questionnaire MOLINA-7 Date MOLINA - 7 assessed: 10/28/22 Source: Developed by Drs. Afshin Menon, Gina Strong, Clark Galeano and colleagues, with an educational ceasr from [employer]. Review of Systems Const Denies poor appetite and Denies weakness Eyes Denies no additional complaints ENT Reports Normal hearing present, Denies dizziness, Denies nasal congestion, Denies tinnitus and Denies sore throat Card Denies chest pain, Denies syncope, Denies rapid heart rate and Denies dyspnea Resp Denies cough and Denies dyspnea GI Denies change in stool character, Reports constipation, Denies diarrhea, Denies nausea and Denies vomiting Denies urinary frequency, Denies difficulty voiding and Denies dysuria Neuro Reports Normal hearing present, Denies confusion, Denies dizziness, Denies syncope and Denies weakness Psych Denies confusion Physical exam (Primary Care) Vital Signs: Last Vital Signs Pulse 70 05/31/23 16:01 BP 116/70 05/31/23 16:01 Pulse Ox 96 05/31/23 16:01 Oxygen Delivery Method Room Air 05/31/23 16:01 BMI result Body Mass Index 21.4 Tobacco/Smoking Status: Tobacco use Status Tobacco use date assessed 10/28/22 05/31/23 16:03 Patient Tobacco Use Status Never used Tobacco 05/31/23 16:03 Tobacco use type 05/04/21 14:09 e-Cigarette/Vaping Use Never Used 05/31/23 16:03 Thrive Assessment: Date of Thrive Assessment Date Thrive assessed 10/28/22 05/31/23 16:03 Const General: No confusion Orientation/consciousness: No confusion HENMT Head: Yes normocephalic Ears: external ears normal and TM's normal bilaterally Face and sinus: Yes normal facial exam Mouth: moist mucous membranes Throat: Yes tonsils normal Eyes Conjunctivae: conjunctivae normal Pupils: Equal, round and reactive pupils present and Pupil accommodation reflex normal Direct Ophthalmoscopy: normal light reflex Neck Neck: No lymphadenopathy Thyroid: Thyroid normal Chest Chest palpation & inspection: normal inspection of the chest Resp Effort & Inspection: normal respiratory effort and no audible wheezes Auscultation: clear to auscultation bilaterally, no crackles, no wheezes and lung sounds not diminished Cardio Rate: regular rate Rhythm: regular rhythm Peripheral pulses: radial pulses present and dorsalis pedis present GI Palpation (GI): no masses Auscultation: normal bowel sounds and normoactive bowel sounds Rectal Exam - Female: deferred Skin General skin exam: no rashes or lesions noted Rashes: no rashes Neuro General: No confusion Cranial nerves: Yes Equal, round and reactive pupils present and Yes Normal hearing present Cognition (Neuro): normal cognition Gait exam (Neuro): Normal gait present Motor exam (neuro): 5/5 motor strength present throughout Deep tendon reflexes (DTR's): Right brachioradialis reflex intensity grade: 2+, Left brachioradialis reflex intensity grade: 2+, Right patellar reflex intensity grade: 2+ and Left patellar reflex intensity grade: 2+ Extrem General: No edema Assessment and Plan Assessment & Plan (1) Annual physical exam: Code(s): Z00.00 - Encounter for general adult medical examination without abnormal findings (2) Hypercholesterolemia: Code(s): E78.00 - Pure hypercholesterolemia, unspecified Plan: Avoid fried foods, chicken skin, eggs, butter margarine, pastries and meat. Be it pork or beef they have a lot of cholesterol LDL goal of less than 130 and triglyceride of less than 150 (3) GERD (gastroesophageal reflux disease): Comment: duodenal ulcer Code(s): K21.9 - Gastro-esophageal reflux disease without esophagitis Qualifiers: Esophagitis presence: without esophagitis Qualified Code(s): K21.9 - Gastro-esophageal reflux disease without esophagitis Plan: Avoid the foods that causes that usually spicy foods, tomato products, juices, coffee, soda and foods that your sensitive to. After eating do not lie down, allow 3-4 hours before in lie down. And keep the head of bed above 30 degrees to avoid the acid from going up. (4) Basal cell carcinoma (BCC) of ala nasi: Comment: dermatology s/p MOHs Dr. Sterling Code(s): C44.311 - Basal cell carcinoma of skin of nose Plan: Patient continue to follow-up with Dermatology Coding Level of Care Code Est Pt Prev Care 40-64y(95055) Diagnoses Annual physical exam Z00.00 Hypercholesterolemia E78.00 Gastroesophageal reflux disease without esophagitis K21.9 Esophagitis presence: without esophagitis Basal cell carcinoma (BCC) of ala nasi C44.311
== END 2023-05-31 16:35 | disposition home or self-care (01) ==
PROVIDERS: Visit Provider Internal Medicine
DX: Z00.00 Encounter for general adult medical examination without abnormal findings (principal); E78.00 Pure hypercholesterolemia, unspecified; K21.9 Gastro-esophageal reflux disease without esophagitis; C44.311 Basal cell carcinoma of skin of nose
CPT/HCPCS: 99396

== ENCOUNTER 2023-06-03 06:29 | Outpatient (REF) | payer OTHER, SELFPAY ==
[2023-06-03 06:42] LABS: MANUAL DIFF FLAG NO
[2023-06-03 07:09] LABS: Basophils Absolute Auto 0.1 X10*3/uL (0.0-0.2); Basophils Percent Auto 1.5 % (0-2); Eosinophils Absolute Auto 0.1 X10*3/uL (0.0-0.4); Eosinophils Percent Auto 1.3 % (0-4); Hematocrit 43.1 % (37.0-47.0); Hemoglobin 13.8 g/dl (12.0-16.0); Imm Gran Abs Auto 0.01 X10*3/uL (0.00-0.03); Imm Gran Pct Auto 0.3 % (0.0-0.4); Lymphocytes Absolute Auto 1.4 X10*3/uL (1.2-4.9); Mean Corpuscular Hemoglobin 30.6 pg (27.0-33.0); Mean Corpuscular Volume 95.6 fL (80.0-98.0); Mean Platelet Volume 9.8 fL (9.4-12.3); Monocytes Absolute Auto 0.4 X10*3/uL (0.1-1.2); Monocytes Percent Auto 11.1 % (2-11); Neutrophils Percent Auto 50.8 % (45-73); Platelet Count 213 X10*3/uL (160-400); Red Blood Count 4.51 X10*6/uL (4.20-5.50); Red Cell Distribution Width 12.6 % (11.0-16.0)
[2023-06-03 07:31] LABS: Alanine Aminotransferase 36 U/L (0-31); Albumin Level 4.7 g/dL (3.5-5.0); Alkaline Phosphatase 63 U/L (39-117); Anion Gap 13 (12-20); Aspartate Amino Transferase 33 U/L (5-31); Bilirubin Total 0.7 mg/dL (0.0-1.0); Blood Urea Nitrogen 22 mg/dL (9-16); Calcium 9.9 mg/dL (8.4-10.2); Carbon Dioxide 29 mmol/L (22-29); Chloride 102 mmol/L (96-108); Cholesterol 263 mg/dL (<200); Estimated Glomerular Filt Rate > 60; Glucose Random 93 mg/dL (60-115); HDL Cholesterol 99 mg/dL (>40); LDL Cholesterol Calculated 147 mg/dL (<100); Magnesium 2.3 mg/dL (1.6-2.6); Phosphorus 4.3 mg/dL (2.7-4.5); Sodium 140 mmol/L (135-145); Total Protein 7.9 g/dL (6.5-8.0); Triglycerides 85 mg/dL (<150)
[2023-06-03 07:48] LABS: Free T4 (Free Thyroxine) 0.81 ng/dL (0.71-1.85); Thyroid Stimulating Hormone 3.22 uIU/mL (0.32-4.0); Vitamin D 25-OH Total 53.3 ng/mL (>30)
[2023-06-03 07:59] LABS: Folate 12.8 ng/mL (> or = 4.0); Vitamin B12 520 pg/mL (200-900)
== END 2023-06-03 06:30 | disposition home or self-care (01) ==
LOC: HO.LAB 06:29
PROVIDERS: PCP Internal Medicine; Visit Provider Internal Medicine
DX: E78.00 Pure hypercholesterolemia, unspecified (principal)
CPT/HCPCS: 36415; 80053; 80061; 82306; 82607; 82746; 83735; 84100; 84439; 84443; 85025

== ENCOUNTER 2023-07-12 15:37 | Outpatient (REF) | payer OTHER, SELFPAY ==
--- NOTE | ~2023-07-12 | MM_ITS ---
EXAMINATION: MM SCREENING DIGITAL BREAST TOMOSYNTHESIS, BILATERAL CLINICAL INFORMATION: Screening. Asymptomatic. COMPARISON: Mammography: This study is compared with prior exams dating back to 2019. TECHNIQUE: Digital breast tomosynthesis is performed in both the craniocaudal and mediolateral oblique views along with computer-aided detection (CAD). Synthesized 2D images are generated from the tomosynthesis. FINDINGS: The breasts are heterogeneously dense, which may obscure small masses (ACR BI-RADS breast composition Category c). There is an asymmetry in the deep third of the right breast just below the posterior nipple line. Additional mammographic and targeted sonographic evaluation of this finding is advised. In the left breast, there are no significant masses, abnormal calcifications, or other abnormalities. MM/MM tomosynthesis screening BI IMPRESSION: Right breast asymmetry warrants additional mammographic and targeted sonographic evaluation. No mammographic signs of malignancy left breast. ASSESSMENT: BI-RADS BI-RADS 0 - Incomplete: Needs additional Imaging. RECOMMENDATION: 1. Additional views of the right breast. 2. Targeted ultrasound if warranted after review of the additional views. 3. Radiology department staff will contact the patient for additional imaging. Additional Imaging required This examination should not preclude the clinical evaluation of a suspicious palpable abnormality. This patient's information was entered into a reminder system with a target due date for their next mammogram.
== END 2023-07-12 15:38 | disposition home or self-care (01) ==
LOC: HO.MAMMO 15:37
PROVIDERS: PCP Internal Medicine; Visit Provider Internal Medicine
DX: Z12.31 Encounter for screening mammogram for malignant neoplasm of breast (principal)
CPT/HCPCS: 77063; 77067

== ENCOUNTER → 2023-07-12 15:45 | Outpatient (BNV) | payer OTHER, SELFPAY | PROVIDERS: PCP Internal Medicine; Visit Provider Radiology Diagnostic Radiology | DX: Z12.31 Encounter for screening mammogram for malignant neoplasm of breast (principal) | CPT/HCPCS: 77063; 77067 ==

== ENCOUNTER 2023-08-11 07:50 | Outpatient (REF) | payer OTHER, SELFPAY ==
--- NOTE | ~2023-08-11 | US_ITS ---
EXAMINATION: MM DIAGNOSTIC DIGITAL BREAST TOMOSYNTHESIS, RIGHT US BREAST LIMITED, RIGHT MAMMOGRAPHY: CLINICAL INFORMATION: Follow-up for one view asymmetry seen central posterior CC view only, with no definite MLO correlate. COMPARISON: Mammography: Screening mammography 07/12/2023, 07/06/2022, 06/30/2021, and 05/29/2020. TECHNIQUE: Digital breast tomosynthesis is performed in the following views: Full-field right 3-D mediolateral view, and spot compression 3-D right CC view. FINDINGS: The breasts are heterogeneously dense, which may obscure small masses (ACR BI-RADS breast composition Category c). On spot compression view, CC projection, the one view asymmetry has the appearance of a mix of benign island of tissue and a small oval mass slightly more medially, approximately 7:00 axis. No correlate on the ML view from today, however on right MLO view from 2019, a small oval mass was seen in the approximate 7:00 axis, posterior one third. This may correlate. ULTRASOUND: CLINICAL INFORMATION: Follow-up for one view asymmetry seen central posterior CC view only, with no definite MLO correlate. COMPARISON: No relevant prior ultrasound. TECHNIQUE: Targeted sonographic evaluation was performed using a high frequency linear transducer. Right breast was scanned from the 4:00 to the 8:00 axis. Selected archived documentation. FINDINGS: RIGHT BREAST: There is dense fibroglandular tissue present. In the 7:00 axis, 4 cm from the nipple, there is a simple cyst measuring 4 x 7 x 6 cm, correlating well with the oval mass of concern seen on mammography from both today and 2019. This is benign and stable. There is no suspicious abnormality in the imaged right breast. US/US breast RT limited mamm only IMPRESSION: There are no findings suspicious for malignancy in the right breast. There is a cyst measuring 4 x 7 x 6 cm in the 7:00 axis, 4 cm from the nipple, right breast, correlating with the mammographic focus of concern. This is benign and no further follow-up recommended. Recommend the patient return to routine annual screening. OVERALL ASSESSMENT: Mammography: BI-RADS 2 - Benign Findings Ultrasound: BI-RADS 2 - Benign Findings RECOMMENDATION: 1 year F/U This patient's information was entered into a reminder system with a target due date for their next mammogram.
== END 2023-08-11 07:51 | disposition home or self-care (01) ==
LOC: HO.MAMMO 07:50
PROVIDERS: PCP Internal Medicine; Visit Provider Internal Medicine
DX: N64.89 Other specified disorders of breast (principal)
CPT/HCPCS: 76642; 77061; 77065

== ENCOUNTER → 2023-08-11 08:30 | Outpatient (BNV) | payer OTHER, SELFPAY | PROVIDERS: PCP Internal Medicine; Visit Provider Radiology Diagnostic Radiology | DX: N60.01 Solitary cyst of right breast (principal); R92.321 Mammographic fibroglandular density, right breast | CPT/HCPCS: 76642; 77061; 77065 ==

== ENCOUNTER 2024-06-05 14:53 | Outpatient (AMB) | payer OTHER, SELFPAY ==
--- NOTE | 2024-06-05 14:55 | MHC.PC.OV ---
Vital Signs 06/05/24 15:00 Height 5 ft 3 in Weight 126 lb 6 oz BMI 22.4 BP 104/70 Blood Pressure Location Lt brachial Position Sitting Pulse 91 Pulse Source Pulse Oximeter Pulse Oximetry (%) 97 Oxygen Delivery Method Room Air Intake Visit Reasons: pe Allergies prochlorperazine [From COMPAZINE] Allergy (Severe, Verified 06/05/24 15:03) THROAT CLOSES Medication List - Last Reconciled 06/05/24 by Kady Silver MD ascorbate calcium (vitamin C) 500 mg PO DAILY calcium mg PO cholecalciferol (vitamin D3) 25 mcg PO DAILY ciclopirox 8% topical cyanocobalamin (vitamin B-12) 1,000 mcg PO DAILY radu root-pyridoxine HCl(B6) 325-25 mg caps PO multivitamin 1 tab PO DAILY omeprazole 20 mg PO DAILY 90 days psyllium husk (Daily Fiber) 0.52 grams PO DAILY Tobacco use date assessed: 06/05/24 Dental Screening Dental Screen Date: 06/05/24 Did you have a dental visit in the last 12 months?: Yes Did you have a dental problem in the last 6 months where you did not have access to dental care?: No Was dental information given to patient?: Patient has dentist HPI pe HPI Details The patient is a 63-year-old female presenting with gastrointestinal discomfort and bloating. The symptoms have worsened over the past month, characterized by severe bloating, upper abdominal pain, and excessive gassiness. She experiences discomfort regardless of food type, which has impaired her daily activities. The patient notes significant bloating after eating vegetables like cucumbers. Her recent medical history includes a diagnosis of gastroesophageal reflux disease (GERD) with poorly controlled symptoms. The patient was previously evaluated by a coordinator of rehabilitation services, with a planned colonoscopy on June 19, 2024, that also may explore the issue with GERD, given the family history of Hardwick's esophagus. She reports a history of bunion surgery performed in November 2022, with no noted post-operative complications at this time. Additionally, there is a history of hyperlipidemia noted last year, with specific concern regarding elevated LDL cholesterol levels (147 mg/dL) despite a favorable HDL profile. She also has a documented fatty liver condition identified via ultrasound. There is a strong family history of cardiovascular diseases, and she is already aware of the need to monitor her cholesterol levels vigilantly. The patient also mentions complications with constipation, bowel movements occurring about twice weekly, and significant discomfort with regular fiber use. - LDL cholesterol level: 147 mg/dL; HDL cholesterol good, but dietary adjustments are recommended to manage hyperlipidemia. - Gastroesophageal evaluation, possible Hardwick's esophagus examination scheduled for June 2024. - Mammogram and Papanicolaou test up-to-date with normal results. - Bone density results are within normal limits for age. - Vaccinations are current, including influenza and shingles vaccination. - Omeprazole 20 mg daily for GERD; consideration for medication adjustment pending further evaluation. - Advised to continue monitoring dietary patterns to manage fatty liver disease. - Discussed cardiovascular disease risk mitigation given family history. - Drinks alcohol predominantly on weekends, averaging 2-3 drinks. - Denies tobacco and recreational drug use. - Works regularly with no additional exercise regimen. - Reports difficulty managing constipation and avoiding certain foods due to gastrointestinal symptoms. - Gastrointestinal: Reports bloating, excessive gas, abdominal pain, and GERD symptoms. Denies nausea and vomiting. - Genitourinary: Reports frequent sensation of incomplete urination. - Musculoskeletal: Denies joint pain or recent injuries post-bunion surgery. - Neurological: Denies dizziness or passed out episodes. - Respiratory: Denies shortness of breath. - Labs: Cholesterol panel from last year shows elevated LDL cholesterol. - Imaging: Previous ultrasound showing fatty liver. [facility] Medical History Mitral valve prolapse Neutropenia Hypercholesterolemia GERD (gastroesophageal reflux disease) Surgical History H/O rotator cuff surgery H/O stapedectomy H/O inguinal hernia repair Family History Maternal Aunt Myocardial infarct Maternal Uncle Myocardial infarct Paternal Aunt Colon cancer Paternal Uncle Colon cancer Paternal Aunt Cervical cancer Maternal Grandmother Gastric ulcer Mother Breast cancer Social History Housing: House Alcohol intake: current Comment: 2 days weekend 2-3 drinks Patient Tobacco Use Status: Never used Tobacco e-Cigarette/Vaping Use: Never Used Second Hand Smoke Exposure: No Current occupational status: employed Cognitive needs: No Hearing needs: No Vision needs: Yes Questionnaire PHQ-9 Over the last 2 weeks, how often have you been bothered by any of the following problems? 1. Little interest or pleasure in doing things: not at all 2. Feeling down, depressed, or hopeless: not at all 3. Trouble falling or staying asleep, or sleeping too much: more than half the days 4. Feeling tired or having little energy: more than half the days 5. Poor appetite or overeating: not at all 6. Feeling bad about yourself - or that you are a failure or have let yourself or your family down: not at all 7. Trouble concentrating on things, such as reading the newspaper or watching television: not at all 8. Moving or speaking so slowly that other people could have noticed. Or the opposite - being so fidgety or restless that you have been moving around a lot more than usual: not at all 9. Thoughts that you would be better off or of hurting yourself in some way: not at all Total score: 4 Depression Screening Interpretation: Negative Depression Screening Done: Yes 98193 - PHQ-9 Billing: Yes Source: Developed by Drs. Afshin Menon, Gina Strong, Clark Galeano and colleagues, with an educational cesar from [employer]. Thrive Questionnaire Date Thrive assessed: 06/05/24 I am a: Patient What is your living situation today?: I have a steady place to live Within the past 12 months, did the food you bought not last and you didn't have the money to get more?: Never true Within the past 12 months, did you worry whether your food would run out before you got money to buy more?: Never true Do you have trouble paying for medicines?: No Do you have trouble getting transportation to medical appointments?: No Do you have trouble paying your heating and electricity bill?: No Do you have trouble taking care of your child, family member or friend?: No Do you have trouble with day-to-day activities such as bathing, preparing meals, shopping, managing finances, etc.?: No Are you currently unemployed and looking for a job?: No Are you interested in more education?: No Please select the resources that you would like help with: None Currently or been in a relationship where the following occur: No concerns reported THRIVE Score: 0 AUDIT C Alcohol Use Questionnaire (AUDIT-C) 1. How often do you have a drink containing alcohol?: 2-4 times a month 2. How many drinks containing alcohol do you have on a typical day when you are drinking?: 1 or 2 3. How often do you have six or more drinks on one occasion?: Never Total Score: 2 MOLINA-7 AMB Questionnaire MOLINA-7 Date MOLINA - 7 assessed: 06/05/24 Feeling nervous, anxious, or on edge: 0 = Not at all Not being able to stop or control worryin = Not at all Worrying too much about different things: 0 = Not at all Trouble relaxin = Several days Being so restless that it is hard to sit still: 0 = Not at all Becoming easily annoyed or irritable: 1 = Several days Feeling afraid as if something awful might happen: 0 = Not at all Total MOLINA-7 score (0-4 normal; 5-9 mild; 10-14 moderate; 15-21 severe): 2 Source: Developed by Drs. Afshin Menon, Gina Strong, Clark Galeano and colleagues, with an educational cesar from [employer]. MOLINA-7 Assessment Billing MOLINA-7 Assessment Tool: MOLINA-7 Assessment 83419 Review of Systems Const Denies poor appetite and Denies weakness Eyes Denies no additional complaints ENT Reports Normal hearing present, Denies dizziness, Denies nasal congestion, Denies tinnitus and Denies sore throat Card Denies chest pain, Denies syncope, Denies rapid heart rate and Denies dyspnea Resp Denies cough and Denies dyspnea GI Denies change in stool character, Reports constipation, Denies diarrhea, Denies nausea and Denies vomiting Denies urinary frequency, Denies difficulty voiding and Denies dysuria Neuro Reports Normal hearing present, Denies confusion, Denies dizziness, Denies syncope and Denies weakness Psych Denies confusion Physical exam (Primary Care) Vital Signs: Last Vital Signs Pulse 91 06/05/24 15:00 BP 104/70 06/05/24 15:00 Pulse Ox 97 06/05/24 15:00 Oxygen Delivery Method Room Air 06/05/24 15:00 BMI result Body Mass Index 22.4 Tobacco/Smoking Status: Tobacco use Status Tobacco use date assessed 06/05/24 06/05/24 15:05 Patient Tobacco Use Status Never used Tobacco 06/05/24 14:57 Tobacco use type 05/31/23 16:35 e-Cigarette/Vaping Use Never Used 06/05/24 14:57 PHQ-9: PHQ-9 Score PHQ-9: Total score 4 06/05/24 15:05 Depression Screening Interpretation: Negative Thrive Assessment: Date of Thrive Assessment Date Thrive assessed 06/05/24 06/05/24 15:05 Currently or been in a relationship where the following occur: No concerns reported Const General: No confusion Orientation/consciousness: No confusion HENMT Head: Yes normocephalic Ears: external ears normal and TM's normal bilaterally Face and sinus: Yes normal facial exam Mouth: moist mucous membranes Throat: Yes tonsils normal Eyes Conjunctivae: conjunctivae normal Pupils: Equal, round and reactive pupils present and Pupil accommodation reflex normal Direct Ophthalmoscopy: normal light reflex Neck Neck: No lymphadenopathy Thyroid: Thyroid normal Chest Chest palpation & inspection: normal inspection of the chest Resp Effort & Inspection: normal respiratory effort and no audible wheezes Auscultation: clear to auscultation bilaterally, no crackles, no wheezes and lung sounds not diminished Cardio Rate: regular rate Rhythm: regular rhythm Peripheral pulses: radial pulses present and dorsalis pedis present GI Palpation (GI): no masses Auscultation: normal bowel sounds and normoactive bowel sounds Rectal Exam - Female: deferred Skin General skin exam: no rashes or lesions noted Rashes: no rashes Neuro General: No confusion Cranial nerves: Yes Equal, round and reactive pupils present and Yes Normal hearing present Cognition (Neuro): normal cognition Gait exam (Neuro): Normal gait present Motor exam (neuro): 5/5 motor strength present throughout Deep tendon reflexes (DTR's): Right brachioradialis reflex intensity grade: 2+, Left brachioradialis reflex intensity grade: 2+, Right patellar reflex intensity grade: 2+ and Left patellar reflex intensity grade: 2+ Extrem General: No edema Coding Level of Care Code Est Pt Prev Care 40-64y(26974) Diagnoses Annual physical exam Z00.00 Hypercholesterolemia E78.00 Gastroesophageal reflux disease without esophagitis K21.9 Esophagitis presence: without esophagitis Fatty liver K76.0 Colon cancer screening Z12.11 Hearing impairment H91.90 Additional Codes MOLINA-7 Assessment Billing - MOLINA-7 Assessment Tool: MOLINA-7 Assessment 29809 ([id number]) PHQ-9 - 73440 - PHQ-9 Billing: Yes ([id number]) Assessment & Plan Assessment & Plan (1) Annual physical exam: Code(s): Z00.00 - Encounter for general adult medical examination without abnormal findings Category: Medical Plan: Patient is advised to eat healthy, keep well hydrated, keep active and have adequate sleep. (2) Hypercholesterolemia: Comment: ASCVD risk calculator 2.9% Code(s): E78.00 - Pure hypercholesterolemia, unspecified Category: Medical Plan: Avoid fried foods, chicken skin, eggs, butter margarine, pastries and meat. Be it pork or beef they have a lot of cholesterol ASCVD risk is 2.9% low (3) GERD (gastroesophageal reflux disease): Comment: duodenal ulcer Code(s): K21.9 - Gastro-esophageal reflux disease without esophagitis Category: Medical Qualifiers: Esophagitis presence: without esophagitis Qualified Code(s): K21.9 - Gastro-esophageal reflux disease without esophagitis Plan: Avoid the foods that causes that usually spicy foods, tomato products, juices, coffee, soda and foods that your sensitive to. After eating do not lie down, allow 3-4 hours before in lie down. And keep the head of bed above 30 degrees to avoid the acid from going up. (4) Fatty liver: Code(s): K76.0 - Fatty (change of) liver, not elsewhere classified Category: Medical Plan: Low-fat diet and exercise (5) Colon cancer screening: Code(s): Z12.11 - Encounter for screening for malignant neoplasm of colon Category: Medical Plan: Patient is scheduled to have colonoscopy in 06/25/2024 (6) Hearing impairment: Code(s): H91.90 - Unspecified hearing loss, unspecified ear Category: Medical Plan - Evaluate and monitor GERD symptoms, consider referral to gastroenterology for potential change from Omeprazole to Pantoprazole pending results. - Schedule urinalysis to assess for urinary tract infection. - Offer a trial of Senna or similar laxative to manage constipation. - Encourage dietary modifications to improve lipid levels, emphasizing reducing saturated fat intake. - Reinforce adherence to current medication regime and stop fiber supplements if causing abdominal distress. I discussed with the patient the importance of adhering to dietary changes, particularly to manage hyperlipidemia and liver health. We addressed the ongoing gastrointestinal symptoms and the potential benefit of switching to Pantoprazole, pending a conversation with the coordinator of rehabilitation services. I emphasized the significance of family medical history and its implications for her cardiovascular health. I recommended consideration of probiotics to address excessive gas but acknowledged her sensitivity. We also agreed to approach the upcoming colonoscopy with thorough preparation for GERD evaluation. - Continue taking Omeprazole daily but discuss any changes with your coordinator of rehabilitation services. - Follow a heart-healthy diet, focusing on limiting saturated fats and increasing fiber intake that does not cause discomfort. - Monitor any new or worsening gastrointestinal symptoms and report them promptly. - Complete scheduled blood work and urinalysis prior to the next visit. - Be mindful of alcohol intake and pursue regular light exercise if feasible. - Stay informed about vaccinations, especially influenza, due to the seasonal increase in viral illnesses. Orders: Orders UA CC w/rflx Micro + Cult Today E78.00 - Pure hypercholesterolemia, unspecified, R30.0 - Dysuria Complete Blood Count Auto Diff Today E78.00 - Pure hypercholesterolemia, unspecified Comprehensive Met. Panel Today E78.00 - Pure hypercholesterolemia, unspecified Free T4 (Free Thyroxine) Today E78.00 - Pure hypercholesterolemia, unspecified Thyroid Stimulating Hormone Today E78.00 - Pure hypercholesterolemia, unspecified Vitamin B12 and Folate Today E78.00 - Pure hypercholesterolemia, unspecified Vitamin D 25-OH Total Today E78.00 - Pure hypercholesterolemia, unspecified Lipid Panel Today E78.00 - Pure hypercholesterolemia, unspecified Referrals Speech and Hearing Referral H91.90 - Unspecified hearing loss, unspecified ear Medications: Discontinued psyllium husk (Daily Fiber) Discontinued Reason: Change Referral Type 0.52 grams PO DAILY
--- OUTSIDE RECORDS SUMMARY | 2024-06-05 14:56 | XMS_ITS | Patient Health Record ---
Author Organization [facility] Address [address] [place] [address] Care Team Providers Care Sausage Cooker Name Role Phone Kady Silver MD Primary Care Provider Chapo Hoffmna Jr Unavailable [phone] ALLERGIES Allergen (clinical drug ingredient) Drug/Non Drug Allergy documented on EMR Reaction Allergy Type Onset Date Status Compazine Unknown Drug Allergy Active REASON FOR REFERRAL No Information MEDICATIONS Medication SIG (Take, Route, Frequency, Duration) Notes Start Date End Date Status Fish Oil + D3 8992-3323 MG-UNIT 1 capsule Orally Three times a [...] for other preprocedural examination (Z01.818) Active confirmed 082904825 Problem Colon cancer screening (Z12.11) Active confirmed [id number] VITAL SIGNS Temperature 98.9 degrees Fahrenheit 02/02/2024 Blood pressure diastolic 00 mm Hg 02/02/2024 Height 5 ft 2 in in 02/02/2024 Blood pressure systolic 000 mm Hg 02/02/2024 Weight 122 lbs 02/02/2024 BMI 22.31 kg/m2 02/02/2024 Encounters Encounter Location Date Provider Diagnosis [facility] [place] [address] [place] [id number] 03/16/2024 Chaop Gonsalez Jr [facility] [place] [address] [place] [id number] 06/01/2024 Chapo Gonsalez Jr [facility] [address] [place] [address] 02/02/2024 Chapo Gonsalez Jr Encounter for other preprocedural examination Z01.818 and Colon cancer screening Z12.11 ASSESSMENTS Encounter Date Diagnosis Assessment Notes Treatment Notes Treatment Clinical Notes 02/02/2024 Colon cancer screening (ICD-10 - Z12.11) Colonoscopy material was printed 02/02/2024 Encounter for other preprocedural examination (ICD-10 - Z01.818) PLAN OF TREATMENT Next Appt Details Provider Name:Chapo osorio Jr, 06/19/2024 09:00:00 AM, [address] [place] [address], [phone], Insurance Providers Payer Name Payer Address Payer Phone Subscriber Number Group Number Insured Name Patient Relationship to Insured Coverage Start Date Coverage End Date [employer] [place] [place] [address] [address] [place] [address] [id number] KSENIA MEJIA Self - patient is the insured MEDICAL (GENERAL) HISTORY Medical History History ICD Code Gastroesophageal reflux disease, EGD 30 9, no H. pylori Basal cell carcinoma Colonoscopy 06/19, hyperplastic polyp, te n-year followup Surgical History Surgery Date(Month/Year) bilateral inguinal hernia 1961 right stapedectomy 1999 right rotator cuff 2016 right foot bunion 2023
--- OUTSIDE RECORDS SUMMARY | 2024-06-05 14:56 | XMS_ITS ---
Author Organization [facility] [place] Address [address] [place] [address] Care Team Providers Care Poultry Service Technician Name Role Phone Kady Silver Primary Care Provider Unavailabl e Black, Safia Unavailable [phone] Allergies Allergen (clinical drug ingredient) Drug/Non Drug Allergy documented on EMR Reaction Allergy Type Onset Date Status Compazine throat closes Drug Allergy Act lolly REASON FOR VISIT Painful nail(s) aggrevated by shoes causing difficulty standing/walking, Ingrown Nail Medications Medication SIG (Take, Route, Frequency, Duration) Notes Start Date End Date Status Vitamin D3 25 MCG (1000 UT) as directed Orally Once a day Active Ciclopirox 8 % 1 application Externally Once a day for 30 days 02/17/2023 Active LamISIL 250 MG 1 tablet Orally Once a day for 7 days then stop for 3 weeks repeat cycle for 90 days 07/14/2020 Not-Taking Vitamin C 1000 MG as directed Orally O nce a day Active Vitamin B12 1000 MCG as directed Orally Once a day Active Nqgwuwa-Dseoargsr-Iwephro D Active Omeprazole 20 MG as directed Orally O nce a day PRN Active Ciclopirox 8 % 1 application Externally Once a day for 30 05/21/2024 Active Zakia Root 550 MG as directed Orally Active Multivitamin Active Fiber Active Probiotic Active Social History Tobacco Use: Social History Observation Description Date Details (start date - stop date) Never Smoker NA - NA Tobacco Use/Smoking Question Answer Notes Are you a: nonsmoker Additional Findings: Tobacco Non-User Current no n-smoker Tobacco use other than smoking: Question Answer Notes Are you an other tobacco user? No Problems Problem Type SNOMED Code ICD Code Onset Dates Problem Status W/U Status Risk Notes Problem 066978070 Tinea unguium (B35.1) Active confirmed Chronic Rx management (4) Problem 851075350616973 Pain in right toe(s) (M79.674) Active confirmed Problem 684952565848783 Pain in left toe(s) (M79.675) Active confirmed Vital Signs Height 5ft2in in 05/21/2024 Weight 125 lbs 05/21/2024 BMI 22.86 kg/m2 05/21/2024 Blood pressure systolic 110 mm Hg 05/21/20 24 Blood pressure diastolic 75 mm Hg 024 Procedures Procedure Date Ordered Date Performed Result Body Sit e 63744-Rbkccyhh Plate 05/21/2024 N/A Encounters Encounter Location Date Provider Diagnosis [facility] [address] [address] 05/21/2024 Safia Chandler Tinea unguium B35.1 ; Pain in right toe(s) M79.674 ; Pain in left toe(s) M79.675 and Ingrown nail L60.0 Assessments Encounter Date Diagnosis (ICD Code) Assessment Notes Treatment Notes Treatment Clinical Notes Section Notes 05/21/2024 Tinea unguium (ICD-10 - B35.1) Chronic Rx management (4) 05/21/2024 Pain in right toe(s) (ICD-10 - M79.674) 05/21/2024 Pain in left toe(s) (ICD-10 - M79.675) 05/21/2024 Ingrown nail (ICD-10 - L60.0) Plan Of Treatment Medication Medication Name Sig Start Date Stop Date Notes Ciclopirox 8 % 1 application Externally Once a day for 30 05/21/2024 Pending Test Test Name Order Date 01472-Jnsoegnh Plate 05/21/2024 Next Appt Details Follow Up: 2 Weeks,prn, Gracia on: Provider Name:Safiajody Chandler , 09/06/2024 03:00:00 PM, [address] [place] [address], [phone], Procedure Notes * Category Sub-Category Detail Notes Nail Avulsion Procedure A fine sterile e levator was placed between the eponychium, nail fold, and nail plate to separate the structures. A sterile nail splitter, and/or sterile 316 blade, was then used to longitudinally section the nail along its entire length through the eponychium to the area under the nail fold. The offending portion of nail was from the nail bed with a rolling action and then removed with a hemostat. No underlying bone was identified. There was minimal bleeding as hemostasis was achieved through the temporary use of either a digital tourniquet or the aforementioned local with epinephrine. A bacitracin sterile dressing was applied. Local wound aftercare instructions were discussed and dispensed. The patient was informed of both conservative and future surgical procedures to prevent recurrence. Tylenol or Motrin was recommended for pain or discomfort (29596), Pt DEFERS matricectomy Anesthesia , 3cc of 1 percent L idocaine Plain local anesthesic utilizing aseptic technique Location , Lateral nail merissa rTUTU Progress Notes * Akin MEJIAtteDOB: (63 yo F)Acc No.[id number]:05/21/2024 Progress Note Patient:?TEZALONZO Akin tte Provider:?Safia Chandler DPM :1960???Age:63 Y???Sex:Female D ate:05/21/2024 Address:[address] [place] [address] Pcp:Kady Silver Subjective: * Chief Complaints: * ???Painful nail(s) aggrevate d by shoes causing difficulty standing/walkingIngrown Nail * HPI: ???Painful Nails:?Pt States Last PCP Visit:?Date:?06/07/2023 ?Treatments:?Ciclopirox 8% Solution, relates adherence to recom tx.? * ROS:?General/Constitutional:?Nausea?denies.?Vomiting?denies.?Hunger Thirst?denies.?Loss appetite?denies.?Chills?denies.?Fatigue?denies.?Fever?denies.?Night Sweats?denies.?Unexplained weight loss?denies.?Unexplained weight gain?denies.?HEENTM:?Dentures?denies.?Dizziness?denies.?Glasses/contacts?denies.?Retinopathy?de nies.?Blurred/double vision?denies.?TMJ?denies.?Discharge/drainage?denies.?Implants?denies.?Sore throat?denies.?Dental implants?denies.?Hard of hearing ?admits.?Difficulty chewing/swallowing/speaking?denies.?Nose bleeds?denies.?Sore mouth?denies.?Respiratory:?On Oxygen?denies.?Pneumonia/pleurisy?denies.?Bronchitis?denies.?Emphysema?denies.?C oughing?denies.?Cough blood?denies.?Shortness of breath?denies.?Wheezing?denies.?Cardiovascular:?Pacemaker?denies.?MVP?admits.?WPW?denies.?CHF?denies.?Heart attack?denies.?Septal defect?denies.?Rapid beat?denies.?Chest pain ?denies.?Atrial Fib.?denies.?Murmur/Palpitations?denies.?Gastrointestinal:?Hemorrhoids?denies.?Stomach/Abdominal pain?denies.?Dark blood stool?denies.?Irritable bowel ?denies.?Constipation?denies.?Diarrhea?denies.?Hematology:?Swelling?denies.?Clots?denies.?Varicose Veins?denies.?Bruising?denies.?Bleeding problem?denies.?Genitourinary:?Blood urine?denies.?Frequent/Painfu/urination/bladder control?denies.?Kidney stones?denies.?Infection (UTI)?denies.?Nephropathy?denies.?sex trans dis (STD)?denies.?Prostate?denies.?Musculoskeletal:?Hammertoes?denies.?Bunions?admits.?Back Pain?admits.?Muscle Cramps/ Resting?denies.?Muscle cramps / walking?denies.?Generalized aches and pains?admits.?Weakness?admits.?Integ.:?Avalos?denies.?Scars?denies.?Corns/calluses?denies.?Ingrown nails?admits.?Painful nails?admits.?Open Sores?denies.?Rashes?denies.?Neurologic:?Difficulty sleeping?admits.?Brain disorder?denies.?Numbness?denies.?Balance trouble?admits.?Confusion?denies.?Fainting/blackouts?denies.?Tingling?denies.?Tr emors?denies.? * Medical History:? * Surgical History:?LT Inguina l hernia 1962RT stapedectomy 1991RT rotator cuff 2016Rt Inguinal hernia 2002Foot surgery 11/27 * Hospitalization/Major Diagno stic Procedure:?Denies Past Hospitalization * Family History:?Mother: unkn own, Stroke, Cancer, foot problems, diagnosed with Unspecified heart disease, Other specified conditions influencing health status, Other malignant neoplasm of unspecified site, Unspecified essential hypertension.?Father: unknown, Kidney/ Liver Disease, heart attack, diagnosed with Unspecified heart disease, Other specified conditions influencing health status.?Paternal Grand Mother: Cancer, diagnosed with Other malignant neoplasm of unspecified site.?Maternal Grand Mother: Cancer, diagnosed with Other malignant neoplasm of unspecified site.?Paternal aunt: Cancer, diagnosed with Diabetic - NIDDM, Family history of arthritis, Other malignant neoplasm of unspecified site.?Maternal aunt: Cancer, diagnosed with Other malignant neoplasm of unspecified site, Diabetic - NIDDM.?Siblings: SisterBrother- Kidney/Liver Disease, diagnosed with Diabetic - NIDDM, Other specified conditions influencing health status, Unspecified essential hypertension.? * Social History:?Tobacco Use:?Tobacco Use/Smoking?Are you a:?nonsmoker ?Additional Findings: Tobacco Non-User?Current non-smoker ?Tobacco use other than smoking?Are you an other tobacco user??No * Medications:?TakingFiber Pro biotic Xnejwqo-Lansxvmtg-Jyqfxli D Omeprazole 20 MG Capsule Delayed Release as directed Orally Once a day , Notes to Pharmacist: PRNGinger Root 550 MG Capsule as directed Orally Multivitamin Vitamin D3 25 MCG (1000 UT) Tablet as directed Orally Once a day Vitamin C 1000 MG Tablet as directed Orally Once a day Vitamin B12 1000 MCG Tablet Extended Release as directed Orally Once a day Ciclopirox 8 % Solution 1 application Externally Once a day Taking Fiber Taking Probiotic Taking Zgwvbil-Dqpvjascc-Bpavxvt D Taking Omeprazole 20 MG Capsule Delayed Release as directed Orally Once a day , Notes to Pharmacist: PRNTaking Zakia Root 550 MG Capsule as directed Orally Taking Multivitamin Taking Vitamin D3 25 MCG (1000 UT) Tablet as directed Orally Once a day Taking Vitamin C 1000 MG Tablet as directed Orally Once a day Taking Vitamin B12 1000 MCG Tablet Extended Release as directed Orally Once a day Taking Ciclopirox 8 % Solution 1 application Externally Once a day Not-Taking/PRNLamISIL 250 MG Tablet 1 tablet Orally Once a day for 7 days then stop for 3 weeks repeat cycle Medication List reviewed and reconciled with the patientNot-Taking/PRN LamISIL 250 MG Tablet 1 tablet Orally Once a day for 7 days then stop for 3 weeks repeat cycle Medication List reviewed and reconciled with the patient * Allergies:?Compazine: throat closesyes[Allergies Verified] Objective: * Vitals:?Ht: 5ft2in, Wt:125, BMI:22.86, Shoe size: 7.5, BP:110/75mm Hg, Ht-cm: 157.48 cm, Wt-k.7 kg. * Examination: ???General Examination: ?GENERAL APPEARANCE:?Reveals a pleasant, alert, well nourished, well- developed, well hydrated individual, who demonstrates proper attention to hygiene/body habitus, and is in no acute distress, Pt serves as own historian for office visit today.?ORIENTED:?person, place, and time.?Nails: ?NAILS are:?Elongated, overgrown, dystrophic, lytic, greater than 3mm thick, discolored and friable with crumbly malodorous subungual debris, with pain on palpation ?T5.?Neurological: ?SENSORY:?Neurological exam reveals intact sensorium, pain sensation normal, vibration sensation intact, pinprick sensation is normal in the lower extremities, Pt denies, anesthesia, burning, paresthesia, tingling, B/L.?TINEL'S COMPRESSION:? Negative, Saphenous nerve distribution, B/L.?Ingrown Nail: ?INSPECTION:?Reveals nail incurvation, pain on palpation, groove hypertrophy, groove ischemia, Lateral nail border, TA.? Assessment: * Assessment: 1.?Tinea unguium - B35.1 (Pr imary)???Notes :Chronic Rx management (4)???2.?Pain in right toe(s) - M79.674???3.?Pain in left toe(s) - M79.675???4.?Ingrown nail - L60.0??? Plan: * Treatment: 2.?Ingrown nail?Procedure: 74387-Pdcodpqc Plate * Procedures:?Nail Avulsion:?Location?, Lateral nail border, TA.?Anesthesia?, 3cc of 1 percent Lidocaine Plain local anesthesic utilizing aseptic technique.?Procedure?A fine sterile elevator was placed between the eponychium, nail fold, and nail plate to separate the structures. A sterile nail splitter, and/or sterile 316 blade, was then used to longitudinally section the nail along its entire length through the eponychium to the area under the nail fold. The offending portion of nail was from the nail bed with a rolling action and then removed with a hemostat. No underlying bone was identified. There was minimal bleeding as hemostasis was achieved through the temporary use of either a digital tourniquet or the aforementioned local with epinephrine. A bacitracin sterile dressing was applied. Local wound aftercare instructions were discussed and dispensed. The patient was informed of both conservative and future surgical procedures to prevent recurrence. Tylenol or Motrin was recommended for pain or discomfort (12362), Pt DEFERS matricectomy.? * Procedure Codes:?47799 Avuls ion Plate, Modifiers: TA * Preventive Medicine:? ??Counseling:?Discussion:?-13: Office or other outpatient visit for the evaluation and management of an established patient, which required a medically appropriate history and/or examination and LOW level of DECISION MAKING for: 1 STABLE ACUTE UNCOMPLICATED PROBLEM, 2 OR MORE MINOR PROBLEMS, OR 1 STABLE CHRONIC PROBLEM, THAT POSE(S) A LOW RISK FOR MORBIDITY/MORTALITY. The visit on the day of the encounter encompassed interpreting the data and educating the patient as to the nature of their condition, treatment options available according to their individual PMH, meds, allergies, and overall health/living conditions, as well as any potential risks or complications that may occur from a failure to adhere to, and participate in, the recommended course of therapy. The discussion included a complete verbal, and/or written explanation of the examination results, any x-rays taken, the proposed diagnosis, and outline of the treatment plan. A schedule for future care needs was also explained. The patient verbalized an understanding of the instructions at this time and agreed to be an active participant in their treatment. If the patient should think of any questions or concerns after the visit, I have encouraged the patient to call the office.?F/U Fungal nails:?Reviewed with the patient the time needed before we start seeing results with the topical medication. Discussed the results that we hope to see . We discussed the duration of time needed to see results., Nail debridement performed extensively to reduce/remove overall nail length and girth, subungual debris, and necrotic tissue, by manual and electrical means with use of a nail nipper and/or dremel, to more viable healthy nail plate or bed tissue. Silver nitrate used for any petechial bleeding as necessary- Rx sent to pharmacy.? * Follow Up:?2 Weeks,prn * Images: * Sign off status: Completed true * Provider:?Safia Chandler DPM Date:?2023 Generated for Reese bernard/Miky/eTransmitting on:?06/05/2024 02:55 PM EST History and Physical Notes * HPI (History of Present Illness) Category Sub-Category Detail Notes Category Not es Painful Nails Treatments: Ciclopirox 8% So lution, relates adherence to recom tx Pt States Last PCP Visit: Date:: 06/07/2023 Examination Category Sub-Category Detail Notes Category Not es Ingrown Nail INSPECTION: Reveals nail inc urvation, pain on palpation, groove hypertrophy, groove ischemia, Lateral nail border, TA Neurological SENSORY: Neurological exa m reveals intact sensorium, pain sensation normal, vibration sensation intact, pinprick sensation is normal in the lower extremities, Pt denies, anesthesia, burning, paresthesia, tingling, B/L TINEL'S COMPRESSION: Negative, Saphenous nerve distribution, B/L Orthopedic BUNION: General Examination GENERAL APPEARANCE: Reveals a pleasant, alert, well nourished, well-developed, well hydrated individual, who demonstrates proper attention to hygiene/body habitus, and is in no acute distress, Pt serves as own historian for office visit today ORIENTED: person, place, and t curt Nails NAILS are: Elongated, overg rown, dystrophic, lytic, greater than 3mm thick, discolored and friable with crumbly malodorous subungual debris, with pain on palpation T5
--- OUTSIDE RECORDS SUMMARY | 2024-06-05 14:56 | XMS_ITS ---
Author Organization [facility] Address [address] [place] [address] Care Team Providers Care Vulcanizing Press Operator Name Role Phone Kady Silver Primary Care Provider UnavailSafia Ballesteros Unavailable [phone] REASON FOR VISIT r/s 02/15 Encounters Encounter Location Date Provider Diagnosis [address] [address] 02/13/2024 Safia Chandler Plan Of Treatment Next Appt Details Provider Name:Safia Chandler , 09/06/2024 03:00:00 PM, [address] [place] [address], [phone], Progress Notes * Hiro MEJIAeDOB: (63 yo F)Acc No.[id number]:02/13/2024 Patient:?Akin Mejia :1960???Age:63 Y???Sex:Female Address:[address] [place] [address] [place], [address] * true * Date:? Generated for Printi ng/Fabelleg/eTransmitting on:?06/05/2024 02:56 PM EST
--- OUTSIDE RECORDS SUMMARY | 2024-06-05 14:56 | XMS_ITS ---
Author Organization [facility] Address [address] [place] [address] Care Team Providers Care Bulb Grower Name Role Phone Kady Silver MD Primary Care Provider Chapo Hoffman Jr Unavailable ALLERGIES Allergen (clinical drug ingredient) Drug/Non Drug Allergy documented on EMR Reaction Allergy Type Onset Date Status Compazine Unknown Drug Allergy Active REASON FOR VISIT Patient presents today for a colon screening MEDICATIONS Medication SIG (Take, Route, Frequency, Duration) Notes Start Date End Date Status Fish Oil + D3 3085-8122 MG-UNIT 1 capsule Orally Three times a [...] for other preprocedural examination (Z01.818) Active confirmed 637722848 Problem Colon cancer screening (Z12.11) Active confirmed 897735207 VITAL SIGNS BMI 22.31 kg/m2 02/02/2024 Blood pressure systolic 000 mm Hg 02/02/20 24 Blood pressure diastolic 00 mm Hg 024 Height 5 ft 2 in in 02/02/2024 Temperature 98.9 degrees Fahrenheit 02/02/20 24 Weight 122 lbs 02/02/2024 Encounters Encounter Location Date Provider Diagnosis [facility] [address] [place] [address] 02/02/2024 Chapo Gonsalez Jr Encounter for other [...] Provider Name:Chapo osorio , 06/19/2024 09:00:00 AM, [address] [place] [address] , [place], [place], [phone], Progress Notes * Examination Category Sub-Category Detail [...]
--- OUTSIDE RECORDS SUMMARY | 2024-06-05 14:56 | XMS_ITS ---
Author Organization [facility] Address [address] [place] [address] Care Team Providers Care Quebracho Tanner Name Role Phone Kady Silver Primary Care Provider Safia Zhou [phone] Encounters Encounter Location Date Provider Diagnosis [address] [address] 02/16/2024 Safia Chandler Plan Of Treatment Next Appt Details Provider Name:Safia Chandler , 09/06/2024 03:00:00 PM, [address] [place] [address], [phone], Progress Notes * Hiro MEJIAeDOB: (63 yo F)Acc No.[id number]:02/16/2024 Progress Note Patient:?Akin MEJIA Provider:?Safia Chandler DPM :1960???Age:63 Y???Sex:Female D ate:02/16/2024 Address:[address] [place] [address] Pcp:Kady Silver Subjective: * Chief Complaints: * ??? * Medical History:? Objective: * Vitals:? Assessment: Plan: * Treatment: * Images: * The named appointment provid er may or may not be the originator of this progress note, and it is not deemed complete until electronically signed by the appointment provider. Sign off status: Pending * Provider:Za Chandler DPM Date:?2023 Generated for Reese bernard/Miky/[place]ton on:?06/05/2024 02:56 PM EST
--- OUTSIDE RECORDS SUMMARY | 2024-06-05 14:56 | XMS_ITS ---
Author Organization [facility] Address [address] [place] [address] Care Team Providers Care Ethylbenzene Converter Helper Name Role Phone Po Kady CHAO Primary Care Provider Julio Gonsalez Jr, Chapo Haro REASON FOR VISIT screening Encounters Encounter Location Date Provider Diagnosis [facility] [address] [place] [phone] 03/16/2024 Chapo Gonsalez Jr PLAN OF TREATMENT Next Appt Details Provider Name:Chapo osorio Jr, 06/19/2024 09:00:00 AM, [address] [facility] , [place], [place], [phone],
--- OUTSIDE RECORDS SUMMARY | 2024-06-05 14:56 | XMS_ITS | Patient Health Record ---
Author Organization [facility] [place] Address [address] [place] [address] Care Team Providers Care Development Specialist Name Role Phone Kady Silver Primary Care Provider Unavailabl e Black, Safia Unavailable [phone] Allergies Allergen (clinical drug ingredient) Drug/Non Drug Allergy documented on EMR Reaction Allergy Type Onset Date Status Compazine throat closes Drug Allergy Act lolly Reason For Referral No Information Medications Medication SIG (Take, Route, Frequency, Duration) Notes Start Date End Date Status Hyrobsc-Qiwizxzva-Lgqjbwg D Active Omeprazole 20 MG as directed Orally O nce a day PRN Active Fiber Active Probiotic Active Ciclopirox 8 % 1 application Externally Once a day for 30 05/21/2024 Active Zakia Root 550 MG as directed Orally Active Multivitamin Active Vitamin D3 25 MCG (1000 UT) as [...] as directed Orally Once a day Active Immunizations Vaccine Route Administration Date Status Comme nts COVID-19 Pfizer BioNTech Vaccine Unknown 05/10/2021 Administered First Dose: 05/23/2020 Second Dose: 06/16/20 Social History Tobacco Use: Social History Observation Description Date Details (start date - stop date) Never Smoker NA - NA Tobacco Use/Smoking Question Answer Notes Are you a: nonsmoker Additional Findings: Tobacco Non-User Current no n-smoker Alcohol Screen Question Answer Notes Did you have a drink contain ing alcohol in the past year? Yes How often did you have a dri nk containing alcohol in the past year? 2 to 4 times a month (2 points) How often did you have 6 or more drinks on one occasion in the past year? Monthly (2 points) Points 4 Interpretation Positive Tobacco use other than smoking: Question Answer Notes Are you an other tobacco user? No Problems Problem Type SNOMED Code ICD Code Onset Dates Problem Status W/U Status Risk Notes Problem Localized, primary osteoarthritis of the ankle and/or foot (219847549) Primary osteoarthr itis, right ankle and foot (M19.071) Active confirmed Problem Localized, primary osteoarthritis of the ankle and/or foot (632415401) Primary osteoarthr itis, left ankle and foot (M19.072) Active confirmed Problem 414448294 Tinea unguium (B35.1) Active confirmed Chronic Rx management (4) Problem 288557238825308 Pain in left toe(s) (M79.675) Active confirmed Problem 839335677647109 Pain in right toe(s) (M79.674) Active confirmed Problem 483982366828168 Hallux valgus (acquired) , left foot (M20.12) Active confirmed Problem 502503671552780 Hallux valgus (acquired) , right foot (M20.11) Active confirmed Problem Acquired hammer toe of right foot (3402317055856597) Other hammer toe(s) (acquired) , right foot (M20.41) Active confirmed Problem Plantar nerve lesion (914659061) Lesion of plantar nerve, 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) Active confirmed Vital Signs Blood pressure diastolic 75 mm Hg 05/21/2024 Height 5ft2in in 05/21/2024 Blood pressure systolic 110 mm Hg 05/21/2024 Weight 125 lbs 05/21/2024 BMI 22.86 kg/m2 05/21/2024 Procedures Procedure Date Ordered Date Performed Result Body Sit e 69541-XDSZRHZ NAIL, 1-5 08/25/2023 N/A 56904-Tncrdtpj Plate 05/21/2024 N/A Encounters Encounter Location Date Provider Diagnosis [facility] [place] [address] [place] [address] 08/25/2023 Safia Black Tinea unguium B35.1 ; Pain in right toe(s) M79.674 ; Pain in left toe(s) M79.675 ; Pain in left foot M79.672 ; Pain in left ankle and joints of left foot M25.572 ; Bursitis of left foot M77.52 ; Hallux valgus (acquired), left foot M20.12 ; Pain in right foot M79.671 ; Pain in right ankle and joints of right foot M25.571 ; Bursitis of right foot M77.51 and Hallux valgus (acquired), right foot M20.[address] [address] 05/21/2024 Safia Black Tinea unguium B35.1 ; Pain in right toe(s) M79.674 ; Pain in left toe(s) M79.675 and Ingrown nail L60.[address] [address] 02/13/2024 Safia Black Assessments Encounter Date Diagnosis (ICD Code) Assessment Notes Treatment Notes Treatment Clinical Notes Section Notes 08/25/2023 Tinea unguium (ICD-10 - B35.1) 05/21/2024 Tinea unguium (ICD-10 - B35.1) Chronic Rx management (4) 05/21/2024 Pain in right toe(s) (ICD-10 - M79.674) 05/21/2024 Pain in left toe(s) (ICD-10 - M79.675) 08/25/2023 Pain in right toe(s) (ICD-10 - M79.674) 08/25/2023 Pain in left toe(s) (ICD-10 - M79.675) 05/21/2024 Ingrown nail (ICD-10 - L60.0) 08/25/2023 Pain in left foot (ICD-10 - M79.672) 08/25/2023 Pain in left ankle and joints of left foot (ICD-10 - M25.572) 08/25/2023 Bursitis of left foot (ICD-10 - M77.52) 08/25/2023 Hallux valgus (acquired), left foot (ICD-10 - M20.12) 08/25/2023 Pain in right foot (ICD-10 - M79.671) 08/25/2023 Pain in right ankle and joints of right foot (ICD-10 - M25.571) 08/25/2023 Bursitis of right foot (ICD-10 - M77.51) 08/25/2023 Hallux valgus (acquired), right foot (ICD-10 - M20.11) Plan Of Treatment Pending Test Test Name Order Date *Liver Function Test (LFT) 07/10/2020 *Liver Function Test (LFT) 08/26/2022 *Liver Function Test (LFT) 08/30/2022 X ray : Foot, right 3V 07/10/2020 64826-PMICMRY NAIL, 1-5 05/13/2022 76938-QBWXMZW NAIL, 1-5 08/25/2023 51266-Ilkhgfzt Plate 05/21/2024 Next Appt Details Provider Name:Safia Chandler , 09/06/2024 03:00:00 PM, [address] [place], [address], Insurance Providers Payer Name Payer Address Payer Phone Subscriber Number Group Number Insured Name Patient Relationship to Insured Coverage Start Date Coverage End Date Blue Benefits [address] [address] [place] [address] [id number] Kathi Díaz Self - patient is the insured Medical (General) History Medical History History ICD Code Reflux ( GERD) Stomach ulcer Chicken pox Mitral valve prolapse basal cell carcinoma Surgical History Surgery Date(Month/Year) LT Inguinal hernia 1961 RT stapedectomy 1990 RT rotator cuff 2016 Rt Inguinal hernia 2002 Foot surgery 11/27
[2024-06-05 15:00] VITALS: BP 104/70; PULSE 91; O2SAT 97; BMI 22.4
== END 2024-06-05 15:30 | disposition home or self-care (01) ==
PROVIDERS: PCP Internal Medicine; Visit Provider Internal Medicine
DX: Z00.00 Encounter for general adult medical examination without abnormal findings (principal); E78.00 Pure hypercholesterolemia, unspecified; K21.9 Gastro-esophageal reflux disease without esophagitis; K76.0 Fatty (change of) liver, not elsewhere classified; Z12.11 Encounter for screening for malignant neoplasm of colon; H91.90 Unspecified hearing loss, unspecified ear

== ENCOUNTER → 2024-06-05 14:53 | Outpatient (BNVA) | payer OTHER, SELFPAY | PROVIDERS: PCP Internal Medicine; Visit Provider Internal Medicine | DX: Z00.00 Encounter for general adult medical examination without abnormal findings (principal); E78.00 Pure hypercholesterolemia, unspecified; K21.9 Gastro-esophageal reflux disease without esophagitis; K76.0 Fatty (change of) liver, not elsewhere classified; H91.90 Unspecified hearing loss, unspecified ear; Z79.899 Other long term (current) drug therapy | CPT/HCPCS: 96127 ==

== ENCOUNTER 2024-06-08 06:27 | Outpatient (REF) | payer OTHER, SELFPAY ==
--- OUTSIDE RECORDS SUMMARY | 2024-06-08 06:29 | XMS_ITS ---
Author Organization [facility] Address [address] [place] [address] Care Team Providers Care Batch Trucker Name Role Phone Kady Silver MD Primary Care Provider Chapo Hoffman Jr Unavailable ALLERGIES Allergen (clinical drug ingredient) Drug/Non Drug Allergy documented on EMR Reaction Allergy Type Onset Date Status Compazine Unknown Drug Allergy Active REASON FOR VISIT Patient presents today for a colon screening MEDICATIONS Medication SIG (Take, Route, Frequency, Duration) Notes Start Date End Date Status Fish Oil + D3 6667-0953 MG-UNIT 1 capsule Orally Three times a [...] for other preprocedural examination (Z01.818) Active confirmed 637618797 Problem Colon cancer screening (Z12.11) Active confirmed 777415326 VITAL SIGNS BMI 22.31 kg/m2 02/02/2024 Blood pressure systolic 000 mm Hg 02/02/20 24 Blood pressure diastolic 00 mm Hg 024 Height 5 ft 2 in in 02/02/2024 Temperature 98.9 degrees Fahrenheit 02/02/20 24 Weight 122 lbs 02/02/2024 Encounters Encounter Location Date Provider Diagnosis [facility] [address] [place] [address] 02/02/2024 Chapo Gonsalez Jr Encounter for other [...] Provider Name:Chapo osorio , 06/19/2024 09:00:00 AM, [address] [place] [address] , [place], [place], [phone], Progress Notes * Examination Category Sub-Category Detail [...]
--- OUTSIDE RECORDS SUMMARY | 2024-06-08 06:29 | XMS_ITS ---
Author Organization [facility] Address [address] [place] [address] Care Team Providers Care Motor Driver Name Role Phone Po Kady CHAO Primary Care Provider Julio Gonsalez Jr, Chapo Haro REASON FOR VISIT screening Encounters Encounter Location Date Provider Diagnosis [facility] Outpatient [address] [place] [id number] 03/16/2024 Chapo Gonsalez Jr PLAN OF TREATMENT Next Appt Details Provider Name:Chapo osorio Jr, 06/19/2024 09:00:00 AM, [address] [place] [address] , [place], [place], [phone],
--- OUTSIDE RECORDS SUMMARY | 2024-06-08 06:30 | XMS_ITS | Patient Health Record ---
Author Organization [facility] Address [address] [place] [address] Care Team Providers Care Rouge Miller Name Role Phone Kady Silver MD Primary Care Provider Chapo Hoffman Jr Unavailable ALLERGIES Allergen (clinical drug ingredient) Drug/Non Drug Allergy documented on EMR Reaction Allergy Type Onset Date Status Compazine Unknown Drug Allergy Active REASON FOR REFERRAL No Information MEDICATIONS Medication SIG (Take, Route, Frequency, Duration) Notes Start Date End Date Status Fish Oil + D3 4517-1754 MG-UNIT 1 capsule Orally Three times a [...] for other preprocedural examination (Z01.818) Active confirmed 217411569 Problem Colon cancer screening (Z12.11) Active confirmed 445624812 VITAL SIGNS Temperature 98.9 degrees Fahrenheit 02/02/2024 Blood pressure diastolic 00 mm Hg 02/02/2024 Height 5 ft 2 in in 02/02/2024 Blood pressure systolic 000 mm Hg 02/02/2024 Weight 122 lbs 02/02/2024 BMI 22.31 kg/m2 02/02/2024 Encounters Encounter Location Date Provider Diagnosis [facility] Outpatient [address] [place] [id number] 03/16/2024 Chapo Gonsalez Jr [facility] Outpatient [address] [place] [id number] 06/01/2024 Chapo Gonsalez Jr [facility] [address] [place] [address] 02/02/2024 Chapo Gonsalez Jr Encounter for other preprocedural examination Z01.818 and Colon cancer screening Z12.11 ASSESSMENTS Encounter Date Diagnosis Assessment Notes Treatment Notes Treatment Clinical Notes 02/02/2024 Colon cancer screening (ICD-10 - Z12.11) Colonoscopy material was printed 02/02/2024 Encounter for other preprocedural examination (ICD-10 - Z01.818) PLAN OF TREATMENT Next Appt Details Provider Name:Chapo osorio Jr, 06/19/2024 09:00:00 AM, [address] [place] [address], [phone], Insurance Providers Payer Name Payer Address Payer Phone Subscriber Number Group Number Insured Name Patient Relationship to Insured Coverage Start Date Coverage End Date [employer] [address] [address] [place] [address] [id number] KSENIA MEJIA Self - patient is the insured MEDICAL (GENERAL) HISTORY Medical History History ICD Code Gastroesophageal reflux disease, EGD 30 9, no H. pylori Basal cell carcinoma Colonoscopy 06/19, hyperplastic polyp, te n-year followup Surgical History Surgery Date(Month/Year) bilateral inguinal hernia 1961 right stapedectomy 1999 right rotator cuff 2016 right foot bunion 2023
[2024-06-08 06:39] LABS: MANUAL DIFF FLAG NO
[2024-06-08 08:06] LABS: Basophils Absolute Auto 0.1 X10*3/uL (0.0-0.2); Basophils Percent Auto 1.2 % (0-2); Eosinophils Absolute Auto 0.1 X10*3/uL (0.0-0.4); Eosinophils Percent Auto 1.2 % (0-4); Hematocrit 42.7 % (37.0-47.0); Hemoglobin 13.6 g/dl (12.0-16.0); Imm Gran Abs Auto 0.01 X10*3/uL (0.00-0.03); Imm Gran Pct Auto 0.2 % (0.0-0.4); Lymphocytes Absolute Auto 1.5 X10*3/uL (1.2-4.9); Lymphocytes Percent Auto 35.5 % (20-40); Mean Corpuscular HGB Conc 31.9 g/dl (31.0-35.0); Mean Corpuscular Hemoglobin 29.7 pg (27.0-33.0); Mean Corpuscular Volume 93.2 fL (80.0-98.0); Mean Platelet Volume 10.1 fL (9.4-12.3); Monocytes Absolute Auto 0.5 X10*3/uL (0.1-1.2); Monocytes Percent Auto 10.4 % (2-11); Neutrophils Absolute Auto 2.2 x10*3/uL (2.0-8.3); Neutrophils Percent Auto 51.5 % (45-73); Platelet Count 249 X10*3/uL (160-400); Red Blood Count 4.58 X10*6/uL (4.20-5.50); White Blood Count 4.3 X10*3/uL (4.8-10.8)
[2024-06-08 08:34] LABS: Appearance Urine Clear; Color Urine Yellow; Glucose Urine UA Negative (Negative); Leukocyte Esterase Urine Small (1+) (Negative); Nitrite Urine Negative (Negative); PH 6.5 (5.0-9.0); Specific Gravity - Urine 1.025 (1.005-1.025); UMIC TRIGGER UACC YES; Urine Blood Negative (Negative); Urine Ketones Negative (Negative); Urine Protein Negative (Neg-Trace)
[2024-06-08 08:53] LABS: Bacteria Urine None Seen (None Seen); Hyaline Casts Urine 0-2 /LPF (0-2); RBC Urine 0-2 /HPF (0-2); Squamous Epithelial Cell Urine 0-2 /HPF (0-2); UACC Culture Trigger YES; WBC Urine 0-5 /HPF (0-5)
[2024-06-08 09:08] LABS: Alanine Aminotransferase 23 U/L (0-31); Albumin Level 4.7 g/dL (3.5-5.0); Alkaline Phosphatase 70 U/L (39-117); Anion Gap 14 (12-20); Aspartate Amino Transferase 26 U/L (5-31); Bilirubin Total 0.7 mg/dL (0.0-1.0); Blood Urea Nitrogen 24 mg/dL (9-16); Calcium 9.6 mg/dL (8.4-10.2); Carbon Dioxide 28 mmol/L (22-29); Chloride 103 mmol/L (96-108); Cholesterol 266 mg/dL (<200); Estimated Glomerular Filt Rate > 60; Glucose Random 91 mg/dL (60-115); HDL Cholesterol 93 mg/dL (>40); LDL Cholesterol Calculated 148 mg/dL (<100); Potassium 4.2 mmol/L (3.3-5.1); Sodium 141 mmol/L (135-145); Total Protein 7.9 g/dL (6.5-8.0); Triglycerides 125 mg/dL (<150)
[2024-06-08 09:27] LABS: Free T4 (Free Thyroxine) 0.84 ng/dL (0.71-1.85); Thyroid Stimulating Hormone 3.17 uIU/mL (0.32-4.0)
[2024-06-08 09:37] LABS: Folate 13.7 ng/mL (> or = 4.0); Vitamin B12 336 pg/mL (200-900)
== END 2024-06-08 06:28 | disposition home or self-care (01) ==
LOC: HO.LAB 06:27
PROVIDERS: PCP Internal Medicine; Visit Provider Internal Medicine
DX: E78.00 Pure hypercholesterolemia, unspecified (principal); R30.0 Dysuria
CPT/HCPCS: 36415; 80053; 80061; 81001; 82306; 82607; 82746; 84439; 84443; 85025; 87086

== ENCOUNTER 2024-06-19 06:54 | Day surgery (SDC) | payer OTHER, SELFPAY ==
--- OUTSIDE RECORDS SUMMARY | 2024-05-31 11:17 | XMS_ITS ---
Author Organization [facility] Address [address] [place] [address] Care Team Providers Care Automatic Embroidery Machine Tender Name Role Phone Kady Silver MD Primary Care Provider Chapo Hoffman Jr Unavailable [phone] ALLERGIES Allergen (clinical drug ingredient) Drug/Non Drug Allergy documented on EMR Reaction Allergy Type Onset Date Status Compazine Unknown Drug Allergy Active REASON FOR VISIT Patient presents today for a colon screening MEDICATIONS Medication SIG (Take, Route, Frequency, Duration) Notes Start Date End Date Status Fish Oil + D3 8740-2922 MG-UNIT 1 capsule Orally Three times a day for 30 day(s) Active Omeprazole 20 MG Oral for 90 A ctive Vitamin D-3 125 MCG (5000 UT) 1 tablet Orally Once a day for 30 day(s) Active Calcium 1 tab Oral for 14 days Active Zakia Root 550 MG as directed Orally Active Vitamin C Drops 60 MG 1 lozenge Mouth/Th roat Once a day for 30 day(s) Active Multi Vitamin - 1 tablet Orally Once a day for 30 day(s) Active SOCIAL HISTORY Tobacco Use: Social History Observation Description Date Details (start date - stop date) Never Smoker NA - NA Sex Assigned At : Social History Observation Description Sex Assigned At Unknown Tobacco Use/Smoking Question Answer Notes Patient is a nonsmoker Alcohol Screen Question Answer Notes Did you have a drink contain ing alcohol in the past year? Yes How often did you have a dri nk containing alcohol in the past year? 2 to 4 times a month (2 points) How many drinks did you have on a typical day when you were drinking in the past year? 1 or 2 drinks (0 point) How often did you have 6 or more drinks on one occasion in the past year? Never (0 point) Points 2 Interpretation Negative PROBLEMS Problem Type ICD Code Onset Dates Problem Status W/U Status Risk SNOMED Code Notes Problem Encounter for other preprocedural examination (Z01.818) Active confirmed [id number] Problem Colon cancer screening (Z12.11) Active confirmed [id number] VITAL SIGNS BMI 22.31 kg/m2 02/02/2024 Blood pressure systolic 000 mm Hg 02/02/20 24 Blood pressure diastolic 00 mm Hg 024 Height 5 ft 2 in in 02/02/2024 Temperature 98.9 degrees Fahrenheit 02/02/20 24 Weight 122 lbs 02/02/2024 Encounters Encounter Location Date Provider Diagnosis [facility] [address] [place] [address] 02/02/2024 Chapo Gonsalez Jr Encounter for other preprocedural examination Z01.818 and Colon cancer screening Z12.11 ASSESSMENTS Encounter Date Diagnosis Assessment Notes Treatment Notes Treatment Clinical Notes 02/02/2024 Encounter for other preprocedural examination (ICD-10 - Z01.818) 02/02/2024 Colon cancer screening (ICD-10 - Z12.11) Colonoscopy material was printed PLAN OF TREATMENT Treatment Notes Assessment Notes Colon cancer screening Colonoscopy mater ial was printed Next Appt Details Follow Up: prn, Reason: Provider Name:Chapo osorio , 06/19/2024 09:00:00 AM, [address] [place] [address] , [place], [place], [phone], Progress Notes * Examination Category Sub-Category Detail Notes General Examination GENERAL APPEARANCE: in no ac jabier distress HEAD: normocephalic EYES: sclera non-icteric NECK/THYROID: no lymphadenopathy HEART: S1, S2 normal, no mu rmurs CHEST: normal shape and exp ansion LUNGS: clear to auscultatio n bilaterally ABDOMEN: soft, nontender, non distended, bowel sounds present, no organomegaly SKIN: anicteric EXTREMITIES: no clubbing, cyanosi s, or edema PSYCH: cognitive function i ntact ORAL CAVITY: mucosa moist
--- OUTSIDE RECORDS SUMMARY | 2024-05-31 11:17 | XMS_ITS ---
Author Organization [facility] Address [address] [place] [address] Care Team Providers Care Tip Bander Name Role Phone Po Kady CHAO Primary Care Provider Julio Gonsalez Jr, Chapo Haro REASON FOR VISIT screening Encounters Encounter Location Date Provider Diagnosis [facility] [address] [place] [id number] 03/16/2024 Chapo Gonsalez Jr PLAN OF TREATMENT Next Appt Details Provider Name:Chapo osorio Jr, 06/19/2024 09:00:00 AM, [address] [facility] , [place], [place], [phone],
--- OUTSIDE RECORDS SUMMARY | 2024-05-31 11:18 | XMS_ITS | Patient Health Record ---
Author Organization [facility] Address [address] [place] [address] Care Team Providers Care Animal Nutrition Consultant Name Role Phone Kady Silver MD Primary Care Provider Chapo Hoffman Jr Unavailable ALLERGIES Allergen (clinical drug ingredient) Drug/Non Drug Allergy documented on EMR Reaction Allergy Type Onset Date Status Compazine Unknown Drug Allergy Active REASON FOR REFERRAL No Information MEDICATIONS Medication SIG (Take, Route, Frequency, Duration) Notes Start Date End Date Status Fish Oil + D3 2056-1505 MG-UNIT 1 capsule Orally Three times a [...] Once a day for 30 day(s) Active IMMUNIZATIONS Vaccine Route Administration Date Status Comme nts Influenza Unknown 03/29/2023 Administered SOCIAL HISTORY Tobacco Use: Social History Observation [...] for other preprocedural examination (Z01.818) Active confirmed 821817649 Problem Colon cancer screening (Z12.11) Active confirmed 305532855 VITAL SIGNS Temperature 98.9 degrees Fahrenheit 02/02/2024 Blood pressure diastolic 00 mm Hg 02/02/2024 Height 5 ft 2 in in 02/02/2024 Blood pressure systolic 000 mm Hg 02/02/2024 Weight 122 lbs 02/02/2024 BMI 22.31 kg/m2 02/02/2024 Encounters Encounter Location Date Provider Diagnosis [facility] [place] Outpatient [address] [place] [id number] 03/16/[address] [facility] [address] [place] [address] 02/02/2024 Chapo Gonsalez Jr Encounter for other preprocedural examination Z01.818 and Colon cancer screening Z12.11 ASSESSMENTS Encounter Date Diagnosis Assessment Notes Treatment Notes Treatment Clinical Notes 02/02/2024 Colon cancer screening (ICD-10 - Z12.11) Colonoscopy material was printed 02/02/2024 Encounter for other preprocedural examination (ICD-10 - Z01.818) PLAN OF TREATMENT Next Appt Details Provider Name:Chapo osorio Jr, 06/19/2024 09:00:00 AM, [address] [place] [address] , [place], [place], [phone], Insurance Providers Payer Name Payer Address Payer Phone Subscriber Number Group Number Insured Name Patient Relationship to Insured Coverage Start Date Coverage End Date [employer] [place] [address] [address] [place] [address] [id number] KSENIA MEJIA Self - patient is the insured MEDICAL (GENERAL) HISTORY Medical History History ICD Code Gastroesophageal reflux disease, EGD 3/0 9, no H. pylori Basal cell carcinoma Colonoscopy 06/19, hyperplastic polyp, te n-year followup Surgical History Surgery Date(Month/Year) bilateral inguinal hernia 1962 right stapedectomy 2000 right rotator cuff 2016 right foot bunion 2023
[2024-06-15 09:52] VITALS: BMI 22.3
--- NOTE | 2024-06-18 09:54 | HO.ANESPROP2 ---
Documented by User: Reema Packer NP 06/18/24 09:55 HPI - Anesthesia Eval Consult details Narrative: 63yo F for Colonoscopy PMFSH Active Problems Active Problems: All Active Problems Colon cancer screening (Acute) Basal cell carcinoma (BCC) of [place] (Acute) Fatty liver (Acute) Disc disease, degenerative, cervical (Acute) Neck pain (Acute) Peripheral neuropathy (Acute) LFT elevation (Acute) Breast density (Acute) Low Back Pain (Acute) Polyarthralgia (Acute) Hearing impairment (Acute) Onychomycosis (Acute) Muscle weakness (Acute) Annual physical exam (Acute) Hypercholesterolemia (Acute) GERD (gastroesophageal reflux disease) (Acute) Past Medical History Medical History Mitral valve prolapse Neutropenia Hypercholesterolemia GERD (gastroesophageal reflux disease) Family History Family History Maternal Aunt Myocardial infarct Maternal Uncle Myocardial infarct Paternal Aunt Colon cancer Paternal Uncle Colon cancer Paternal Aunt Cervical cancer Maternal Grandmother Gastric ulcer Mother Breast cancer Surgical History Surgical History History of esophagogastroduodenoscopy (EGD) H/O colonoscopy H/O rotator cuff surgery H/O stapedectomy H/O inguinal hernia repair Social History Social History Household Members: Spouse Housing: House Are you a primary hearing healthcare practitioner to a significant other at home: No Do you presently have visiting nurse or other home services: No Alcohol intake: current Alcohol intake frequency: holidays/special occasions only Comment: 2 days weekend 2-3 drinks Patient Tobacco Use Status: Never used Tobacco e-Cigarette/Vaping Use: Never Used Second Hand Smoke Exposure: No Use of substances other than those prescribed or required for medical reasons: No Have you been hit, kicked, punched, or otherwise hurt by someone within the past year? If so, by whom?: No Are you DNR?: No Advance Directives: No Advance Directives Information Provided: Yes Recently lost weight without trying: No Nutrition Risks: No Nutritional Risk Patient : No Current occupational status: employed Cognitive needs: No Hearing needs: No Vision needs: Yes Meds Allergies Allergy/AdvReac Type Severity Reaction Status Date / Time prochlorperazine Allergy Severe THROAT Verified 06/19/24 07:19 [From COMPAZINE] CLOSES Home Medications ?Medication ?Instructions ?Recorded ?Confirmed ?Last Taken ?Type ascorbate calcium (vitamin C) 500 500 mg PO DAILY 04/24/20 06/15/24 Unknown History mg tablet cyanocobalamin (vitamin B-12) 1,000 mcg PO DAILY 04/24/20 06/15/24 Unknown History 1,000 mcg capsule radu root 325 mg-pyridoxine HCl 1 cap PO DAILY 04/24/20 06/15/24 Unknown History (vitamin B6) 25 mg capsule cholecalciferol (vitamin D3) 25 25 mcg PO DAILY 09/04/20 06/15/24 Unknown History mcg (1,000 unit) capsule multivitamin 1 tab PO DAILY 09/04/20 06/15/24 Unknown History ciclopirox 8 % topical solution topical 06/05/24 06/05/24 Unknown History calcium 600 mg (as 1 tab PO DAILY 06/15/24 06/15/24 Unknown History carbonate)-vitamin D3 5 mcg (200 unit) tablet Exam Height,Weight and Vital Signs: Height 5 ft 2 in Weight 55.338 kg Assessment and Plan Assessment Anesthesia Assessment: Chart Reviewed Documented by User: Liane Frank MD 06/19/24 08:36 [facility] Past Medical History Medical History Mitral valve prolapse Neutropenia Hypercholesterolemia GERD (gastroesophageal reflux disease) Family History Family History Maternal Aunt Myocardial infarct Maternal Uncle Myocardial infarct Paternal Aunt Colon cancer Paternal Uncle Colon cancer Paternal Aunt Cervical cancer Maternal Grandmother Gastric ulcer Mother Breast cancer Surgical History Surgical History History of esophagogastroduodenoscopy (EGD) H/O colonoscopy H/O rotator cuff surgery H/O stapedectomy H/O inguinal hernia repair History of Problems with Anesthesia: No Social History Social History Household Members: Spouse Housing: House Are you a primary hearing healthcare practitioner to a significant other at home: No Do you presently have visiting nurse or other home services: No Alcohol intake: current Alcohol intake frequency: holidays/special occasions only Comment: 2 days weekend 2-3 drinks Patient Tobacco Use Status: Never used Tobacco e-Cigarette/Vaping Use: Never Used Second Hand Smoke Exposure: No Use of substances other than those prescribed or required for medical reasons: No Have you been hit, kicked, punched, or otherwise hurt by someone within the past year? If so, by whom?: No Are you DNR?: No Advance Directives: No Advance Directives Information Provided: Yes Recently lost weight without trying: No Nutrition Risks: No Nutritional Risk Patient : No Current occupational status: employed Cognitive needs: No Hearing needs: No Vision needs: Yes Meds Allergies Allergy/AdvReac Type Severity Reaction Status Date / Time prochlorperazine Allergy Severe THROAT Verified 06/19/24 07:19 [From COMPAZINE] CLOSES Home Medications ?Medication ?Instructions ?Recorded ?Confirmed ?Last Taken ?Type ascorbate calcium (vitamin C) 500 500 mg PO DAILY 04/24/20 06/15/24 Unknown History mg tablet cyanocobalamin (vitamin B-12) 1,000 mcg PO DAILY 04/24/20 06/15/24 Unknown History 1,000 mcg capsule radu root 325 mg-pyridoxine HCl 1 cap PO DAILY 04/24/20 06/15/24 Unknown History (vitamin B6) 25 mg capsule cholecalciferol (vitamin D3) 25 25 mcg PO DAILY 09/04/20 06/15/24 Unknown History mcg (1,000 unit) capsule multivitamin 1 tab PO DAILY 09/04/20 06/15/24 Unknown History ciclopirox 8 % topical solution topical 06/05/24 06/05/24 Unknown History calcium 600 mg (as 1 tab PO DAILY 06/15/24 06/15/24 Unknown History carbonate)-vitamin D3 5 mcg (200 unit) tablet Exam Airway Mallampati Class: I TM Dist: >3cm Neck ROM: Full Loose/Missing/Broken Teeth: No Heart: RRR Lungs: CTA Assessment and Plan Assessment Anesthesia Assessment: Anesthesia Plan Discussed Final Anesthetic Review History of Problems with Anesthesia: No NPO: Yes ASA Class: II Final Preanesthetic Review: Meds/Allgs Chart Reviewed, Consent Obtained/Reviewed and Anes Risks/Benef Reviewed Patient Risk: Low Procedure Risk: Low Anesthetic Plan Anesthetic Plan: MAC: Disposition: Standard PACU
[2024-06-19 07:38] VITALS: BP 124/78; PULSE 72; RESP 14; TEMP 36.7; O2SAT 100; BMI 21.9
[2024-06-19] MEDS: Lactated Ringers 1,000 ML 100 ML IVCONT (07:50)
--- NOTE | 2024-06-19 08:18 | MHC.SHP ---
Pre-Procedural Eval Section A - 24 Hr Update-Section A only Date of Service: 06/19/24 Section B - Complete if H&P > 30 days Chief Complaint: Encounter for screening for malignant neoplasm of Details of Present Illness: see H&P no changes Relevant Family History (Specify if Yes): No Relevant Social History: None Present Medications: see Short Stay Collaborative assessment Medical History: No relevant PMH History of Previous Operations: No relevant previous surgery Allergies: Allergies Allergy/AdvReac Type Severity Reaction Status Date / Time prochlorperazine Allergy Severe THROAT Verified 06/19/24 07:19 [From COMPAZINE] CLOSES Review of Systems Sugical H&P ROS: Negative: Constitution, Cardiovascular, Respiratory, Neurological, Psychiatric, Hem-Onc, Allergic/Immunologic, Gastrointestinal, Genitourinary, Musculoskeletal, Integumentary, Endocrine and Eyes/Ears/Nose/Throat Exam Surgical H&P Exam: Normal: HEENT, Normal: Heart, Normal: Lungs, Normal: Extremities, Normal: Abdomen, Normal: Skin and Normal: Neurological Plan Diagnosis/Plan: Unchanged I have reviewed the history and physical and performed a pertinent physical examination on my patient. No changes have occurred unless specified. Time Spent With Patient Time: Total time managing care of this patient today ____ minutes.
[2024-06-19 08:53] VITALS: BP 93/53; PULSE 68; RESP 18; TEMP 36.8; O2SAT 100
--- NOTE | 2024-06-19 09:06 | OP_ITS ---
DATE OF SERVICE: 06/19/2024 SURGEON: Chapo Gonsalez MD INDICATIONS: Cancer screening. PREOPERATIVE DIAGNOSIS: POSTOPERATIVE DIAGNOSIS: PROCEDURE PERFORMED: Colonoscopy to the terminal ileum. ESTIMATED BLOOD LOSS: COMPLICATIONS: ANESTHESIA: Monitored anesthesia care. ASSISTANTS: SPECIMENS: DESCRIPTION OF PROCEDURE: A history and physical were performed. The risks and benefits of the procedure were explained to the patient, and informed consent was obtained. The patient was placed in the left lateral decubitus position. A digital rectal exam was performed and was found to be normal. The Olympus pediatric video colonoscope was introduced into the rectum and advanced to the cecum. The cecum was identified by transillumination, palpation, and identification of ileocecal valve. Examination was performed and the scope was removed. She tolerated the procedure well and was returned to recovery area in stable condition. FINDINGS: The terminal ileum was examined and appeared normal. The visualized colonic mucosa was within normal limits without evidence of masses or ulcers. No polyps were identified. Retroflexed examination showed some small to moderate-sized internal hemorrhoids. Excellent prep. IMPRESSION: Normal colonoscopy. RECOMMENDATIONS: 1. Follow up as needed. 2. Repeat colonoscopy is recommended in 10 years for average-risk individuals. MD SANDRO Knowles/DEJA / [id number] MTDD
[2024-06-19 09:10] VITALS: BP 105/69; PULSE 72; RESP 18; TEMP 36.8; O2SAT 100
== END 2024-06-19 09:27 | disposition home or self-care (01) ==
PROVIDERS: PCP Internal Medicine; Visit Provider Internal Medicine Gastroenterology
PROC: 0DJD8ZZ Inspection of Lower Intestinal Tract, Via Natural or Artificial Opening Endoscopic (ICD-10-PCS; CPT 45378; principal; 2024-06-19 08:20)
DX: Z12.11 Encounter for screening for malignant neoplasm of colon (principal); K64.8 Other hemorrhoids; Z83.719 Family history of colon polyps, unspecified; E78.00 Pure hypercholesterolemia, unspecified; K21.9 Gastro-esophageal reflux disease without esophagitis; K76.0 Fatty (change of) liver, not elsewhere classified; Z79.899 Other long term (current) drug therapy
CPT/HCPCS: 45378; J2003; J2704

== ENCOUNTER 2024-07-03 15:36 | Outpatient (REF) | payer OTHER, SELFPAY ==
--- OUTSIDE RECORDS SUMMARY | 2024-07-03 16:26 | XMS_ITS ---
Author Organization [facility] Address [address] [place] [address] Care Team Providers Care Leno Sewer Name Role Phone Po Kady CHAO Primary Care Provider Chapo Hoffman Jr REASON FOR VISIT COLON SCREENING Encounters Encounter Location Date Provider Diagnosis [facility] Outpatient [address], [place] [phone] 06/01/2024 Chapo Gonsalez Jr PLAN OF TREATMENT No Information
--- OUTSIDE RECORDS SUMMARY | 2024-07-03 16:27 | XMS_ITS ---
Author Organization [facility] Address [address] [place] [address] Care Team Providers Care Engineering Job Titles Name Role Phone Po Kady CHAO Primary Care Provider Chapo Hoffman Jr Unavailable REASON FOR VISIT COLON SCREENING MEDICATIONS Medication SIG (Take, Route, Frequency, Duration) Notes Start Date End Date Status Vitamin C Drops 60 MG 1 lozenge Mouth/Th roat Once a day for 30 day(s) Active Zakia Root 550 MG as directed Orally Active Vitamin D-3 125 MCG (5000 UT) 1 tablet Orally Once a day for 30 day(s) Active Calcium 1 tab Oral for 14 days Active Omeprazole 20 MG Oral for 90 A ctive Fish Oil + D3 5423-6273 MG-UNIT 1 capsule Orally Three times a day for 30 day(s) Active Multi Vitamin - 1 tablet Orally Once a day for 30 day(s) Active Encounters Encounter Location Date Provider Diagnosis [facility] [place] [address] [place], [place] [phone] 06/19/2024 Chapo Gonsalez Jr Colon cancer screening Z12.11 ASSESSMENTS Encounter Date Diagnosis Assessment Notes Treatment Notes Treatment Clinical Notes 06/19/2024 Colon cancer screening (ICD-10 - Z12.11) PLAN OF TREATMENT No Information
--- OUTSIDE RECORDS SUMMARY | 2024-07-03 16:27 | XMS_ITS ---
Author Organization [facility] Address [address] [place] [address] Care Team Providers Care Nail Sticker Name Role Phone Kady Silver Primary Care Provider UnavailSafia Ballesteros Unavailable [phone] REASON FOR VISIT r/s 02/15 Encounters Encounter Location Date Provider Diagnosis [address] [address] 02/13/2024 Safia Chandler Plan Of Treatment Next Appt Details Provider Name:Safia Chandler , 09/06/2024 03:00:00 PM, [address] [place] [address], [address], Progress Notes * Hiro MEJIAeDOB: (63 yo F)Acc No.[id number]:02/13/2024 Patient:?Akin Mejia :1960???Age:63 Y???Sex:Female Address:[address] [place] [address] [place], [address] * true * Date:? Generated for Printi ng/Fabelleg/eTransmitting on:?07/03/2024 04:27 PM EST
--- OUTSIDE RECORDS SUMMARY | 2024-07-03 16:27 | XMS_ITS ---
Author Organization [facility] [place] Address [address] [place] [address] Care Team Providers Care Gravel Inspector Name Role Phone Kady Silver Primary Care Provider Unavailabl e Black, Safia Unavailable [phone] Allergies Allergen (clinical drug ingredient) Drug/Non Drug [...] as directed Orally Once a day Active Nevkhuu-Akywqenxm-Bnqxsmo D Active Omeprazole 20 MG as directed [...] Problem Status W/U Status Risk Notes Problem 573287113 Tinea unguium (B35.1) Active confirmed Chronic Rx management (4) Problem 160571286685297 Pain in right toe(s) (M79.674) Active confirmed Problem 972740776724412 Pain in left toe(s) (M79.675) Active confirmed Vital Signs Height 5ft2in in 05/21/2024 Weight 125 lbs 05/21/2024 BMI 22.86 kg/m2 05/21/2024 Blood pressure systolic 110 mm Hg 05/21/20 24 Blood pressure diastolic 75 mm Hg 024 Procedures Procedure Date Ordered Date Performed Result Body Sit e 26499-Hylctptu Plate 05/21/2024 N/A Encounters Encounter Location Date Provider Diagnosis [facility] [address] [address] 05/21/2024 Safia Chandler Tinea unguium B35.1 ; [...] 05/21/2024 Pending Test Test Name Order Date 21986-Ztcjzmdh Plate 05/21/2024 Next Appt Details Follow Up: 2 Weeks,prn, Gracia on: Provider Name:Safiajody Chandler , 09/06/2024 03:00:00 PM, [address] [place] [address], [phone], Procedure Notes * Category Sub-Category Detail Notes [...] Motrin was recommended for pain or discomfort (84033), Pt DEFERS matricectomy Anesthesia , 3cc of 1 percent L idocaine Plain local anesthesic utilizing aseptic technique Location , Lateral nail merissa rTUTU Progress Notes * Akin MEJIAtteDOB: (63 yo F)Acc No.[id number]:05/21/2024 Progress Note Patient:?TEZALONZO Akin tte Provider:?Safia Chandler DPM :1960???Age:63 Y???Sex:Female D ate:05/21/2024 Address:[address] [place] [address] Pcp:Kady Silver Subjective: * Chief Complaints: * [...] other tobacco user??No * Medications:?TakingFiber Pro biotic Nhpsadz-Fezwvqzzv-Xljfcpj D Omeprazole 20 MG Capsule Delayed Release [...] a day Taking Fiber Taking Probiotic Taking Utqbktx-Lwpozshls-Kwoxcvb D Taking Omeprazole 20 MG Capsule Delayed [...] - L60.0??? Plan: * Treatment: 2.?Ingrown nail?Procedure: 26335-Iiqymwbn Plate * Procedures:?Nail Avulsion:?Location?, Lateral nail border, [...] Motrin was recommended for pain or discomfort (11562), Pt DEFERS matricectomy.? * Procedure Codes:?67399 Avuls ion Plate, Modifiers: TA * Preventive [...] Chandler DPM Date:?2023 Generated for Reese bernard/Miky/eTransmitting on:?07/03/2024 04:26 PM EST History and Physical Notes * [...]
--- OUTSIDE RECORDS SUMMARY | 2024-07-03 16:27 | XMS_ITS | Patient Health Record ---
Author Organization [facility] Address [address] [place] [address] Care Team Providers Care Lath Hand Name Role Phone Kayd Silver MD Primary Care Provider Chapo Hoffman Jr Unavailable ALLERGIES Allergen (clinical drug ingredient) Drug/Non Drug Allergy documented on EMR Reaction Allergy Type Onset Date Status Compazine Unknown Drug Allergy Active REASON FOR REFERRAL No Information MEDICATIONS Medication SIG (Take, Route, Frequency, Duration) Notes Start Date End Date Status Fish Oil + D3 7596-6002 MG-UNIT 1 capsule Orally Three times a day for 30 day(s) Active Vitamin C Drops 60 MG 1 [...] 20 MG Oral for 90 A ctive IMMUNIZATIONS Vaccine Route Administration Date Status Comme [...] for other preprocedural examination (Z01.818) Active confirmed 470500612 Problem Colon cancer screening (Z12.11) Active confirmed 999654508 VITAL SIGNS Temperature 98.9 degrees Fahrenheit 02/02/2024 Blood pressure diastolic 00 mm Hg 02/02/2024 Height 5 ft 2 in in 02/02/2024 Blood pressure systolic 000 mm Hg 02/02/2024 Weight 122 lbs 02/02/2024 BMI 22.31 kg/m2 02/02/2024 Encounters Encounter Location Date Provider Diagnosis [facility] [address] [place] [id number] 03/16/2024 Chapo Gonsalez Jr [facility] [address] [place] [id number] 06/01/2024 Chapo Gonsalez Jr [facility] [address] [place] [id number] 06/19/2024 Chapo Gonsalez Jr Colon cancer screening Z12.11 [facility] [address] [place] [address] 02/02/2024 Chapo Gonsalez Jr Encounter for other preprocedural examination Z01.818 and Colon cancer screening Z12.11 ASSESSMENTS Encounter Date Diagnosis Assessment Notes Treatment Notes Treatment Clinical Notes 06/19/2024 Colon cancer screening (ICD-10 - Z12.11) 02/02/2024 Colon cancer screening (ICD-10 - Z12.11) Colonoscopy material was printed 02/02/2024 Encounter for other preprocedural examination (ICD-10 - Z01.818) PLAN OF TREATMENT No Information Insurance Providers Payer Name Payer Address Payer Phone Subscriber Number Group Number Insured Name Patient Relationship to Insured Coverage Start Date Coverage End Date [employer] [address] [address] [place] [address] [id number] KSENIA MEJIA Self - patient is the insured MEDICAL (GENERAL) HISTORY Medical History History ICD Code Gastroesophageal reflux disease, EGD 0 9, no H. pylori Basal cell carcinoma Colonoscopy 06/19, hyperplastic polyp, te n-year followup Surgical History Surgery Date(Month/Year) bilateral inguinal hernia 1961 right stapedectomy 1999 right rotator cuff 2016 right foot bunion 2023
--- OUTSIDE RECORDS SUMMARY | 2024-07-03 16:28 | XMS_ITS ---
Author Organization [facility] Address [address] [place] [address] Care Team Providers Care Staff Training And Development Manager Name Role Phone Po Kady CHAO Primary Care Provider Chapo Hoffman Jr [phone] REASON FOR VISIT screening Encounters Encounter Location Date Provider Diagnosis [facility] [place] [address] [place], [place] [phone] 03/16/2024 Chapo Gonsalez Jr PLAN OF TREATMENT No Information
--- OUTSIDE RECORDS SUMMARY | 2024-07-03 16:28 | XMS_ITS ---
Author Organization [facility] Address [address] [place] [address] Care Team Providers Care Aircraft Inspection Record Clerk Name Role Phone Kady Silver Primary Care Provider Safia Zhou [phone] Encounters Encounter Location Date Provider Diagnosis [address] [address] 02/16/2024 Safia Chandler Plan Of Treatment Next Appt Details Provider Name:Safia Chandler , 09/06/2024 03:00:00 PM, [address] [place] [address], [phone], Progress Notes * Hiro MEJIAeDOB: (64 yo F)Acc No.[id number]:02/16/2024 Progress Note Patient:?Akin MEJIA Provider:?Safia Chandler DPM :1960???Age:63 Y???Sex:Female D ate:02/16/2024 Address:[address] [place] [address] Pcp:Kady Silver Subjective: * Chief Complaints: * ??? * Medical History:? Objective: * Vitals:? Assessment: Plan: * Treatment: * Images: * The named appointment provid er may or may not be the originator of this progress note, and it is not deemed complete until electronically signed by the appointment provider. Sign off status: Pending * Provider:Za Chandler DPM Date:?2023 Generated for Reese bernard/Miky/[place] on:?07/03/2024 04:27 PM EST
--- OUTSIDE RECORDS SUMMARY | 2024-07-03 16:28 | XMS_ITS | Patient Health Record ---
Author Organization [facility] dk [place] Address [address] [place] [address] Care Team Providers Care Vibratory Pile Driver Name Role Phone Kady Silver Primary Care Provider Unavailabl e Black, Safia Unavailable [phone] Allergies Allergen (clinical drug ingredient) Drug/Non Drug Allergy documented on EMR Reaction Allergy Type Onset Date Status Compazine throat closes Drug Allergy Act lolly Reason For Referral No Information Medications Medication SIG (Take, Route, Frequency, Duration) Notes Start Date End Date Status Lfxxzuy-Ifvbvjgvo-Xrpxzib D Active Omeprazole 20 MG as directed [...] primary osteoarthritis of the ankle and/or foot (998207231) Primary osteoarthr itis, right ankle and foot (M19.071) Active confirmed Problem Localized, primary osteoarthritis of the ankle and/or foot (880767227) Primary osteoarthr itis, left ankle and foot (M19.072) Active confirmed Problem 551068454 Tinea unguium (B35.1) Active confirmed Chronic Rx management (4) Problem 426376123649908 Pain in left toe(s) (M79.675) Active confirmed Problem 851894609266815 Pain in right toe(s) (M79.674) Active confirmed Problem 873475260850544 Hallux valgus (acquired) , left foot (M20.12) Active confirmed Problem 011975160142173 Hallux valgus (acquired) , right foot (M20.11) Active confirmed Problem Acquired hammer toe of right foot (4953866965448365) Other hammer toe(s) (acquired) , right foot (M20.41) Active confirmed Problem Plantar nerve lesion (571667576) Lesion of plantar nerve, 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) Active confirmed Vital Signs Blood pressure diastolic 75 mm Hg 05/21/2024 Height 5ft2in in 05/21/2024 Blood pressure systolic 110 mm Hg 05/21/2024 Weight 125 lbs 05/21/2024 BMI 22.86 kg/m2 05/21/2024 Procedures Procedure Date Ordered Date Performed Result Body Sit e 58505-CTYNJYA NAIL, 1-5 08/25/2023 N/A 78115-Frnioctr Plate 05/21/2024 N/A Encounters Encounter Location Date Provider Diagnosis [facility] [place] [address] [place] [address] 08/25/2023 Safia Black Tinea unguium B35.1 ; [...] and Hallux valgus (acquired), right foot M20.[address] [address] 05/21/2024 Safia Black Tinea unguium B35.1 ; Pain in right toe(s) M79.674 ; Pain in left toe(s) M79.675 and Ingrown nail L60.[address] [address] 02/13/2024 Safia Black Assessments Encounter Date Diagnosis [...] X ray : Foot, right 3V 07/10/2020 90844-JMHARAN NAIL, 1-5 05/13/2022 68797-ERVZFVP NAIL, 1-5 08/25/2023 31361-Stadyejd Plate 05/21/2024 Next Appt Details Provider Name:Safia Chandler , 09/06/2024 03:00:00 PM, [address] [place], [address], Insurance Providers Payer Name Payer Address Payer Phone Subscriber Number Group Number Insured Name Patient Relationship to Insured Coverage Start Date Coverage End Date Blue Benefits [address] [address] [place] [address] [id number] Kathi Díaz Self - patient is the insured Medical (General) History Medical History History ICD Code Reflux ( GERD) Stomach ulcer Chicken pox Mitral valve prolapse basal cell carcinoma Surgical History Surgery Date(Month/Year) LT Inguinal hernia 1961 RT stapedectomy 1990 RT rotator cuff 2016 Rt Inguinal hernia 2002 Foot surgery 11/27
--- NOTE | 2024-07-03 16:41 | MHC.AU.HA3 ---
Hearing Instrument Follow-Up- Binaural Date of Visit: 07/03/24 Right Ear: Make, Model, Color, Serial Number: Phonak Virto V 90-10 O CIC SN: [id number] Color: [place] Remote Medical Coder Repair Warranty: 05/21/2018 Remote Medical Coder Loss and Damage Warranty: 05/21/2018 Battery Size: 10 Type of Wax Guard: Cerustop Dispensed By: [facility] Date of Fittin04/29/2015 Left Ear: Make, Model, Color, Serial Number: Phonak Virto V 90-10 O CIC SN: [id number] Color: [place] Remote Medical Coder Repair Warranty: 05/21/2018 Remote Medical Coder Loss and Damage Warranty: 05/21/2018 Battery Size: 10 Type of Wax Guard: Cerustop Dispensed By: [facility] Date of Fittin03/28/2015 Follow-Up Summary: Updated hearing test (see audio). No programming changes, hearing stable. Considering new HAs due to age of current pair. Reportedly shortened battery life, now only getting about 5 days, previously 7. Left hearing aid had static but has since resolved. Discussed options for new HAs including manufacturers, rechargeability, bluetooth, technology levels, etc. Prefers Phonak custom HAs, battery-powered. Considering bluetooth knowing it would have to be at least ITC (vs current CIC). Provided mata list - would like to discuss options with . Will schedule a full Hearing Aid Consultation when she is ready to proceed. Recommendations: Hearing instrument follow-up or maintenance as needed. Please contact our clinic with any questions or concerns. Diagnosis Code(s): Primary Diagnosis: H90.3 Bilateral Sensorineural Hearing Loss Signature: Provider: Emiliano Pa, [facility]
== END 2024-07-03 15:37 | disposition home or self-care (01) ==
LOC: HO.SH 15:36
PROVIDERS: Visit Provider Internal Medicine
DX: Z01.118 Encounter for examination of ears and hearing with other abnormal findings (principal); H90.3 Sensorineural hearing loss, bilateral
CPT/HCPCS: 92557

== ENCOUNTER 2024-07-10 14:20 | Outpatient (REF) | payer OTHER, SELFPAY ==
--- NOTE | ~2024-07-10 | MM_ITS ---
EXAMINATION: DXA BONE DENSITY AXIAL HISTORY: Estrogen deficiency TECHNIQUE: StemCells Dual energy absorptiometry (DEXA) of the lumbar spine, total left hip, and femoral neck was performed. COMPARISON: Comparison is made with the prior examination dated 07/06/2022. FINDINGS: The bone mineral density of the lumbar spine is 1.261 with a T-score of 0.5, and a Z-score of 2.2. This represents a BMD change of -1.8% compared to the prior exam. This is not statistically significant. The bone mineral density of the left total hip is 0.880 with a T-score of -1.0, and a Z-score of 0.3. This represents BMD change of -3.2% compared to the prior exam. This is not statistically significant. The bone mineral density of the left femoral neck is 0.716 with a T-score of -2.3, and a Z-score of -0.8. This represents BMD change of -4.0% compared to the prior exam. FRACTURE RISK: The FRAX index suggests a ten year probability of major osteoporotic fracture of 11.2%, and of hip fracture 2.0%. MM/XR DEXA axial skeleton IMPRESSION: Based on bone mineral density, and according to World Health Organization (WHO) criteria, the diagnosis is consistent with osteopenia. All bone density values are in grams per centimeter squared (g/cm2). Statistically, 68% of repeat scans fall within 1 SD (+/- 0.010 g/cm2 for AP spine L1-L4) and 1 SD (+/- 0.012 g/cm2 for femur total) FRAX is a trademark of the [employer] [place] [employer] Metabolic Bone Disease, a World Health Organization (WHO) Collaborating Center. Electronically signed by: Afshin Yadav MD 07/12/2024 07:46 AM [facility]
== END 2024-07-10 14:21 | disposition home or self-care (01) ==
LOC: HO.MAMMO 14:20
PROVIDERS: PCP Internal Medicine; Visit Provider Obstetrics & Gynecology Female Pelvic Medicine and Reconstructive Surgery
DX: Z13.820 Encounter for screening for osteoporosis (principal); Z78.0 Asymptomatic menopausal state
CPT/HCPCS: 77080

== ENCOUNTER → 2024-07-10 14:30 | Outpatient (BNV) | payer OTHER, SELFPAY | PROVIDERS: PCP Internal Medicine; Visit Provider Radiology Diagnostic Radiology | DX: E28.39 Other primary ovarian failure (principal) | CPT/HCPCS: 77080 ==

== ENCOUNTER 2024-07-17 15:36 | Outpatient (REF) | payer OTHER, SELFPAY | END 2024-07-17 15:37 | disposition home or self-care (01) | LOC: HO.MAMMO 15:36 | PROVIDERS: PCP Internal Medicine; Visit Provider Internal Medicine | DX: Z12.31 Encounter for screening mammogram for malignant neoplasm of breast (principal) | CPT/HCPCS: 77063; 77067 ==

== ENCOUNTER → 2024-07-17 15:45 | Outpatient (BNV) | payer OTHER, SELFPAY | PROVIDERS: PCP Internal Medicine; Visit Provider Internal Medicine | DX: Z12.31 Encounter for screening mammogram for malignant neoplasm of breast (principal) | CPT/HCPCS: 77063; 77067 ==

== ENCOUNTER 2024-08-30 14:51 | Outpatient (REF) | payer SELFPAY ==
--- NOTE | 2024-08-30 15:54 | MHC.AU.HA1 ---
Hearing Aid Evaluation Date of Visit: 08/30/24 Historical Information: Description of Hearing: Right Ear: Moderate sloping to profound mix hearing loss; Left Ear: Mild to moderate mixed hearing loss Current personal amplification information: Phonak Virto V90-10 O CICs fit in 2014 Summary: Ready to pursue new HAs due to age of current pair. Re-discussed options. Kathi prefers same print decorator and style, battery-powered. Considered bluetooth HAs but ultimately decided she did not want the HAs to be any bigger/bulkier in ears. Comfortable with size/shape of current HAs and does not use phone often anyways. Impressions taken, bilaterally, without incident - Sent to [employer]. *Consultation fee waived - [facility] Employee Hearing Aid Prescription: Based on the individual?s shared listening needs, communication environments, dexterity, desire for connectivity, and personal preferences, the following prescription for amplification has been made: Right ear: Make, Model, Color: Phonak Virto I90-10 NW O CIC Color: [place] Battery Size: 10 Left ear: Left ear prescription to be same as Right Hearing Aid above: Make, Model, Color: Phonak Virto I90-10 NW O CIC Color: [place] Battery Size: 10 Plan of Care: Patient wishes to purchase hearing aids as prescribed Action Taken/Action Needed: Hearing Instrument Fitting to be scheduled when materials arrive Primary Diagnosis: H90.3 Bilateral Sensorineural Hearing Loss Signature: Provider: Emiliano Pa, [facility]
== END 2024-08-30 14:52 | disposition home or self-care (01) ==
LOC: HO.HAP 14:51
PROVIDERS: Visit Provider Internal Medicine
DX: Z13.89 Encounter for screening for other disorder (principal)

== ENCOUNTER 2024-09-18 12:58 | Outpatient (REF) | payer SELFPAY ==
--- NOTE | 2024-09-18 13:59 | MHC.AU.HA2 ---
Hearing Instrument Fitting- Adult- Binaural Date of Visit: 09/18/24 Hearing Instruments Dispensed: Right Ear: Make, Model, Color, Serial Number: Kirsten Sparkso I90-10 NW O [facility] SN: [id number] Color: [place] Fleet Sales Associate Repair Warranty: 10/04/2027 Fleet Sales Associate Loss and Damage Warranty: 10/04/2027 [facility] Service Plan: [employer] [facility] EMPLOYEE Battery Size: 10 Type of Wax Guard: CeruStop Left Ear: Make, Model, Color, Serial Number: Kirsten Sparkso I90-10 NW O [facility] SN: [id number] Color: [place] Fleet Sales Associate Repair Warranty: 10/04/2027 Fleet Sales Associate Loss and Damage Warranty: 10/04/2027 [facility] Service Plan: [employer] [facility] EMPLOYEE Battery Size: 10 Type of Wax Guard: CeruStop Summary of Fitting: Ran feedback analyzer. Performed real ear measures but discontinued due to technical difficulties, froze during right ear measurement. Good fit to target for left ear. Per Kathi, physical fit of right SETH loose, canal may be too short, will monitor. Noticeable echo of own voice, encouraged acclimatization. Otherwise sound quality good. Excited to see how the new HAs function at work with lots of background noises. Briefly reviewed care and use. Long-time SETH user, familiar with general maintenance. Recommendations: A hearing instrument follow-up was scheduled. Diagnosis Code(s): Primary Diagnosis: H90.6 Mixed Hearing Loss, Bilateral Signature: Provider: Emiliano Pa, [facility]
--- OUTSIDE RECORDS SUMMARY | 2024-09-18 15:49 | XMS_ITS ---
Author Organization [facility] [place] Address [address] [address] Care Team Providers Care Pharm Spec Name Role Phone Kady Silver Primary Care Provider Unavailabl e Black, Safia Unavailable [phone] Allergies Allergen (clinical drug ingredient) Drug/Non Drug [...] as directed Orally Once a day Active Gfxawzo-Rhxoinpfq-Xlhlazd D Active Omeprazole 20 MG as directed [...] Problem Status W/U Status Risk Notes Problem 089649132 Tinea unguium (B35.1) Active confirmed Chronic Rx management (4) Problem 297624020000023 Pain in right toe(s) (M79.674) Active confirmed Problem 038413143589315 Pain in left toe(s) (M79.675) Active confirmed Vital Signs Height 5ft2in in 05/21/2024 Weight 125 lbs 05/21/2024 BMI 22.86 kg/m2 05/21/2024 Blood pressure systolic 110 mm Hg 05/21/20 24 Blood pressure diastolic 75 mm Hg 024 Procedures Procedure Date Ordered Date Performed Result Body Sit e 22927-Sdwwliwt Plate 05/21/2024 N/A Encounters Encounter Location Date Provider Diagnosis [facility] [address] [address] 05/21/2024 Safia Chandler Tinea unguium B35.1 ; [...] 05/21/2024 Pending Test Test Name Order Date 23206-Maanthgz Plate 05/21/2024 Next Appt Details Follow Up: 2 Weeks,prn, Gracia on: Provider Name:Safia Chandler , 01/10/2025 03:00:00 PM, [address] [place] [address], [phone], Procedure Notes * Category Sub-Category Detail Notes [...] Motrin was recommended for pain or discomfort (87562), Pt DEFERS matricectomy Anesthesia , 3cc of 1 percent L idocaine Plain local anesthesic utilizing aseptic technique Location , Lateral nail merissa rTUTU Progress Notes * Akin MEJIAtteDOB: (63 yo F)Acc No.[id number]:05/21/2024 Progress Note Patient:?TEZALONZO Akin tte Provider:?Safia Chandler DPM :1960???Age:63 Y???Sex:Female D ate:05/21/2024 Address:[address] [place] [address] Pcp:Kady Silver Subjective: * Chief Complaints: * [...] other tobacco user??No * Medications:?TakingFiber Pro biotic Cboewfd-Pifiklvij-Stecpfh D Omeprazole 20 MG Capsule Delayed Release [...] a day Taking Fiber Taking Probiotic Taking Lvbksfj-Zhjyjrjcg-Bjcjomu D Taking Omeprazole 20 MG Capsule Delayed [...] - L60.0??? Plan: * Treatment: 2.?Ingrown nail?Procedure: 23908-Ijvojnpy Plate * Procedures:?Nail Avulsion:?Location?, Lateral nail border, [...] Motrin was recommended for pain or discomfort (41151), Pt DEFERS matricectomy.? * Procedure Codes:?02442 Avuls ion Plate, Modifiers: TA * Preventive [...] Chandler DPM Date:?2023 Generated for Reese bernard/Miky/eTransmitting on:?09/18/2024 03:48 PM EDT History and Physical Notes * HPI (History [...]
--- OUTSIDE RECORDS SUMMARY | 2024-09-18 15:49 | XMS_ITS | Patient Health Record ---
Author Organization [facility] dk Jenkins Address [address] [place] [address] Care Team Providers Care Real Estate Specialist Name Role Phone Kady Silver Primary Care Provider Unavailabl e Black, Safia Unavailable [phone] Allergies Allergen (clinical drug ingredient) Drug/Non Drug Allergy documented on EMR Reaction Allergy Type Onset Date Status Compazine throat closes Drug Allergy Act lolly Reason For Referral No Information Medications Medication SIG (Take, Route, Frequency, Duration) Notes Start Date End Date Status Othyrlm-Ytoaasulc-Sxknzye D Active Vitamin D3 25 MCG (1000 UT) as directed Orally Once a day Active Multivitamin Active Zakia Root 550 MG as directed Orally Active Omeprazole 20 MG as directed Orally O nce a day PRN Active Ciclopirox 8 % 1 application Externally Once a day for 30 05/21/2024 Active Ciclopirox 8 % 1 application Externally Once a day for 30 days 02/17/2023 Active Vitamin B12 1000 MCG as directed Orally Once a day Active Vitamin C 1000 MG as directed Orally O nce a day Active Probiotic Not-Taking Fiber Not-Taking LamISIL 250 MG 1 tablet Orally Once a day for 7 days then stop for 3 weeks repeat cycle for 90 days 07/14/2020 Not-Taking Immunizations Vaccine Route Administration Date Status Comme [...] primary osteoarthritis of the ankle and/or foot (772965436) Primary osteoarthritis, right ankle and foot (M19.071) Active confirmed Problem Localized, primary osteoarthritis of the ankle and/or foot (046240637) Primary osteoarthritis, left ankle and foot (M19.072) Active confirmed Problem 087785188 Tinea unguium (B35.1) Active confirmed Chronic Rx management (4) Problem 650188509963189 Pain in left toe(s) (M79.675) Active confirmed Problem 728468994077027 Pain in right toe(s) (M79.674) Active confirmed Problem 596720296142464 Hallux valgus (acquired), left foot (M20.12) Active confirmed Problem 300949562928243 Hallux valgus (acquired), right foot (M20.11) Active confirmed Problem Acquired hammer toe of right foot (0846881876289731 ) Other hammer toe(s) (acquired), right foot (M20.41) Active confirmed Problem Plantar nerve lesion (849241705) Lesion of plantar nerve, 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) Active confirmed Problem Osteoarthritis of midtarsal joint of right foot (1981456626342976 ) Osteoarthritis of midtarsal joint of right foot (M19.071) Active confirmed Vital Signs Blood pressure diastolic 77 mm Hg 09/06/2024 Height 5ft2in in 09/06/2024 Blood pressure systolic 110 mm Hg 09/06/2024 Weight 122 lbs 09/06/2024 BMI 22.31 kg/m2 09/06/2024 Procedures Procedure Date Ordered Date Performed Result Body Sit e 51108-Btflbwdv Plate 05/21/2024 N/A 92352-PPPIQEE NAIL, 1-5 09/06/2024 N/A Encounters Encounter Location Date Provider Diagnosis [address] [address] 05/21/2024 Safia Chandler Tinea unguium B35.1 ; Pain in right toe(s) M79.674 ; Pain in left toe(s) M79.675 and Ingrown nail L60.[address] [address] 09/06/2024 Safia Black Tinea unguium B35.1 ; Osteoarthritis of midtarsal joint of right foot M19.071 ; Pain in right toe(s) M79.674 ; Ingrown nail L60.0 ; Pain in right foot M79.671 ; Pain in right ankle and joints of right foot M25.571 and Bursitis of right foot M77.[address] [address] 02/13/2024 Safia Black Assessments Encounter Date Diagnosis (ICD Code) Assessment Notes Treatment Notes Treatment Clinical Notes Section Notes 05/21/2024 Tinea unguium (ICD-10 - B35.1) Chronic Rx management (4) 05/21/2024 Pain in right toe(s) (ICD-10 - M79.674) 09/06/2024 Tinea unguium (ICD-10 - B35.1) Chronic Rx management (4) 09/06/2024 Osteoarthritis of midtarsal joint of right foot (ICD-10 - M19.071) 09/06/2024 Pain in right toe(s) (ICD-10 - M79.674) 05/21/2024 Pain in left toe(s) (ICD-10 - M79.675) 05/21/2024 Ingrown nail (ICD-10 - L60.0) 09/06/2024 Ingrown nail (ICD-10 - L60.0) 09/06/2024 Pain in right foot (ICD-10 - M79.671) 09/06/2024 Pain in right ankle and joints of right foot (ICD-10 - M25.571) 09/06/2024 Bursitis of right foot (ICD-10 - M77.51) Plan Of Treatment Pending Test Test Name Order Date *Liver Function Test (LFT) 07/10/2020 *Liver Function Test (LFT) 08/26/2022 *Liver Function Test (LFT) 08/30/2022 X ray : Foot, right 3V 07/10/2020 44528-XICKAIF NAIL, 1-5 05/13/2022 67997-LXTBJVI NAIL, 1-5 08/25/2023 84631-SYPOZTN NAIL, 1-5 09/06/2024 82848-Srqnkenq Plate 05/21/2024 Next Appt Details Provider Name:Safia Paula Ramesh , 01/10/2025 03:00:00 PM, [address] [place], [address], Insurance Providers Payer Name Payer Address Payer Phone Subscriber Number Group Number Insured Name Patient Relationship to Insured Coverage Start Date Coverage End Date Blue Benefits [address] [address] [place] [address] [id number] Kathi Díaz Self - patient is the insured Medical (General) History Medical History History ICD Code Reflux ( GERD) Stomach ulcer Chicken pox Mitral valve prolapse basal cell carcinoma Surgical History Surgery Date(Month/Year) LT Inguinal hernia 1961 RT stapedectomy 1990 RT rotator cuff 2016 Rt Inguinal hernia 2002 Foot surgery 11/27
--- OUTSIDE RECORDS SUMMARY | 2024-09-18 15:49 | XMS_ITS ---
Author Organization [facility] Address [address] [place] [address] Care Team Providers Care Insulation Worker Name Role Phone Kady Silver Primary Care Provider Safia Zhou [phone] Encounters Encounter Location Date Provider Diagnosis [address] [address] 02/16/2024 Safia Chandler Plan Of Treatment Next Appt Details Provider Name:Safia Chandler , 01/10/2025 03:00:00 PM, [address] [place] [address], [phone], Progress Notes * Hiro MEJIAeDOB: (64 yo F)Acc No.[id number]:02/16/2024 Progress Note Patient:?Akin MEJIA Provider:?Safia Chandler DPM :1960???Age:63 Y???Sex:Female D ate:02/16/2024 Address:[address] [place] [address] Pcp:Kady Silver Subjective: * Chief Complaints: * ??? * Medical History:? Objective: * Vitals:? Assessment: Plan: * Treatment: * Images: * The named appointment provid er may or may not be the originator of this progress note, and it is not deemed complete until electronically signed by the appointment provider. Sign off status: Pending * Provider:Za Chandler DPM Date:?2023 Generated for Reese bernard/Miky/Everton on:?09/18/2024 03:49 PM EDT
--- OUTSIDE RECORDS SUMMARY | 2024-09-18 15:49 | XMS_ITS | Patient Health Record ---
Author Organization [facility] Address [address] [place] [address] Care Team Providers Care Learning And Development Administrator Name Role Phone Kady Silver MD Primary Care Provider Chapo Hoffman Jr Unavailable Allergies Allergen (clinical drug ingredient) Drug/Non Drug Allergy documented on EMR Reaction Allergy Type Onset Date Status Compazine Unknown Drug Allergy Active Reason For Referral No Information Medications Medication SIG (Take, Route, Frequency, Duration) Notes Start Date End Date Status Fish Oil + D3 8959-4317 MG-UNIT 1 capsule Orally Three times a day for 30 day(s) Active Vitamin C Drops 60 MG 1 lozenge Mouth/Th roat Once a day for 30 day(s) Active Multi Vitamin - 1 tablet Orally Once a day for 30 day(s) Active Radu Root 550 MG as directed Orally Active Vitamin D-3 125 MCG (5000 UT) 1 tablet Orally Once a day for 30 day(s) Active Calcium 1 tab Oral for 14 days Active Omeprazole 20 MG Oral for 90 A ctive Immunizations Vaccine Route Administration Date Status Comme nts Influenza Unknown 03/29/2023 Administered Social History Tobacco Use: Social History Observation Description Date Details (start date - stop date) Never Smoker NA - NA Tobacco Use/Smoking Question Answer Notes Patient is [...] Never (0 point) Points 2 Interpretation Negative Problems Problem Type SNOMED Code ICD Code Onset Dates Problem Status W/U Status Risk Notes Problem 947386290 Colon cancer screening (Z12.11) Active confirmed Problem 542467747 Encounter for other preprocedural examination (Z01.818) Active confirmed Vital Signs Temperature 98.9 degrees Fahrenheit 02/02/2024 Blood pressure diastolic 00 mm Hg 02/02/2024 Height 5 ft 2 in in 02/02/2024 Blood pressure systolic 000 mm Hg 02/02/2024 Weight 122 lbs 02/02/2024 BMI 22.31 kg/m2 02/02/2024 Encounters Encounter Location Date Provider Diagnosis [facility] [address] [place] [id number] 06/19/2024 Chapo Gonsalez Jr Colon cancer screening Z12.11 [facility] [address] [place] [address] 02/02/2024 Chapo Gonsalez Jr Encounter for other preprocedural examination Z01.818 and Colon cancer screening Z12.11 Assessments Encounter Date Diagnosis (ICD Code) Assessment Notes Treatment Notes Treatment Clinical Notes Section Notes 06/19/2024 Colon cancer screening (ICD-10 - Z12.11) 02/02/2024 Colon cancer screening (ICD-10 - Z12.11) Colonoscopy material was printed We discussed colonoscopy today. We discussed risks and benefits of the procedure today. She understands these and agrees to proceed. She is advised stop fish oil and radu one week before the procedure. 02/02/2024 Encounter for other preprocedural examination (ICD-10 - Z01.818) We discussed colonoscopy today. We discussed risks and benefits of the procedure today. She understands these and agrees to proceed. She is advised stop fish oil and radu one week before the procedure. Plan Of Treatment No Information Insurance Providers Payer Name Payer Address Payer Phone Subscriber Number Group Number Insured Name Patient Relationship to Insured Coverage Start Date Coverage End Date [employer] [address] [address] [place] [address] [id number] KSENIA MEJIA Self - patient is the insured Medical (General) History Medical History History ICD Code Gastroesophageal reflux disease, EGD 3/0 9, no H. pylori Basal cell carcinoma Colonoscopy 06/19, hyperplastic polyp, te n-year followup Surgical History Surgery Date(Month/Year) bilateral inguinal hernia 1961 right stapedectomy 1999 right rotator cuff 2015 right foot bunion 2023
--- OUTSIDE RECORDS SUMMARY | 2024-09-18 15:49 | XMS_ITS ---
[facility] d[facility] Address [address] [place] [address] Care Team Providers Care Maintainer Central Office Name Role Phone Nadeem Shivanilucy Primary Care Provider Unavailabl e Black, Safia Unavailable [phone] Allergies Allergen (clinical drug ingredient) Drug/Non Drug Allergy documented on EMR Reaction Allergy Type Onset Date Status Compazine throat closes Drug Allergy Act lolly REASON FOR VISIT Painful nail(s) aggrevated by shoes causing difficulty standing/walking, Foot pain Medications Medication SIG (Take, Route, Frequency, Duration) Notes Start Date End Date Status Qtbiwtz-Bjobcveew-Sqqfwrq D Active Zakia Root 550 MG as directed Orally Active Omeprazole 20 MG as directed Orally O nce a day PRN Active Probiotic Not-Taking Fiber Not-Taking Ciclopirox 8 % 1 application Externally Once a day for 30 05/21/2024 Active Ciclopirox 8 % 1 application Externally Once a day for 30 days 02/17/2023 Active Vitamin B12 1000 MCG as directed Orally Once a day Active Vitamin C 1000 MG as directed Orally O nce a day Active LamISIL 250 MG 1 tablet Orally Once a day for 7 days then stop for 3 weeks repeat cycle for 90 days 07/14/2020 Not-Taking Vitamin D3 25 MCG (1000 UT) as directed Orally Once a day Active Multivitamin Active Social History Tobacco Use: Social History [...] Problem Status W/U Status Risk Notes Problem Osteoarthritis of midtarsal joint of right foot (8717759140057617 ) Osteoarthritis of midtarsal joint of right foot (M19.071) Active confirmed Vital Signs Height 5ft2in in 09/06/2024 Weight 122 lbs 09/06/2024 BMI 22.31 kg/m2 09/06/2024 Blood pressure systolic 110 mm Hg 09/07/19 25 Blood pressure diastolic 77 mm Hg 025 Procedures Procedure Date Ordered Date Performed Result Body Sit e 82598-[id number] NAIL, 1-09/06/2024 N/A Encounters Encounter Location Date Provider Diagnosis [facility] [address] [address] 09/06/2024 Safia Chandler Tinea unguium B35.1 ; Osteoarthritis of midtarsal joint of right foot M19.071 ; Pain in right toe(s) M79.674 ; Ingrown nail L60.0 ; Pain in right foot M79.671 ; Pain in right ankle and joints of right foot M25.571 and Bursitis of right foot M77.51 Assessments Encounter Date Diagnosis (ICD Code) Assessment Notes Treatment Notes Treatment Clinical Notes Section Notes 09/06/2024 Tinea unguium (ICD-10 - B35.1) Chronic Rx management (4) 09/06/2024 Osteoarthritis of midtarsal joint of right foot (ICD-10 - M19.071) 09/06/2024 Pain in right toe(s) (ICD-10 - M79.674) 09/06/2024 Ingrown nail (ICD-10 - L60.0) 09/06/2024 Pain in right foot (ICD-10 - M79.671) 09/06/2024 Pain in right ankle and joints of right foot (ICD-10 - M25.571) 09/06/2024 Bursitis of right foot (ICD-10 - M77.51) Plan Of Treatment Pending Test Test Name Order Date [id number]-[id number] NAIL, 1-09/06/2024 Next Appt Details Follow Up: 4 Months, Reason: Provider Name:Safia Chandler , 01/10/2025 03:00:00 PM, [address] [place], [address], Procedure Notes * Category Sub-Category Detail Notes Debride Nails 1-5 Procedure: Due to the cli nical pathology outlined in the exam findings, performance of this nail treatment is medically necessary as its management by an unskilled/untrained nonprofessional would put this patients foot and overall health at risk. Therefore, debridement to affected nail(s), as described in exam ( _T5__ ), was performed exclusively by the physician of record to reduce/remove overall nail length, girth, thickness, subungual debris, and necrotic tissue, by manual and/or electrical means through the use of a nail nipper and/or dremel stylegrinder, to a more viable healthy nail plate or bed tissue 5 nails or fewer in number. Silver nitrate was used for any petechial bleeding as necessary. Definitive antifungal treatment options, both pharmaceutical and surgical, have been reviewed and discussed with the patient. The patient solely prefers the use of intermittent/as needed professional debridement services for their nail condition and understands that additional periodic treatments may be required as necessary to maintain effective symptomatic relief - 560[address] Progress Notes * Akin MEJIAtteDOB: (64 yo F)Acc No.[id number]:09/06/2024 Progress Note Patient:?ROBERTO Akin tte Provider:?Safia Chandler DPM :1960???Age:64 Y???Sex:Female D ate:09/06/2024 Address:[address] [place], [place] [phone] Pcp:Kady Silver Subjective: * Chief Complaints: * ???Painful nail(s) aggrevate d by shoes causing difficulty standing/walkingFoot pain * HPI: ???Painful Nails:?Pt States Last PCP Visit:?Date:?07/06/2024 ?Treatments:?Ciclopirox 8% Solution, relates adherence to recom tx.?Foot Pain:?Nature:?aching, stiffness, swelling, throbbing.?Location:?Top, Midfoot, RIGHT.?Duration:?, several days.?Onset:?sudden, denies trauma.?Course:?worse.?Treatments:?rest/alter normal daily activity.? * ROS:?General/Constitutional:?Nausea?denies.?Vomiting?denies.?Hunger Thirst?denies.?Loss appetite?denies.?Chills?denies.?Fatigue?denies.?Fever?denies.?Night Sweats?denies.?Unexplained weight loss?denies.?Unexplained [...] own, Stroke, Cancer, foot problems, diagnosed with Other malignant neoplasm of unspecified site, Unspecified essential hypertension, Unspecified heart disease, Other specified conditions influencing health status.?Father: unknown, Kidney/ Liver Disease, heart attack, diagnosed with Unspecified heart disease, Other specified conditions influencing health status.?Paternal Grand Mother: Cancer, diagnosed with Other malignant neoplasm of unspecified site.?Maternal Grand Mother: Cancer, diagnosed with Other malignant neoplasm of unspecified site.?Paternal aunt: Cancer, diagnosed with Other malignant neoplasm of unspecified site, Diabetic - NIDDM, Family history of arthritis.?Maternal aunt: Cancer, diagnosed with Other malignant neoplasm of unspecified site, Diabetic - NIDDM.?Siblings: SisterBrother- Kidney/Liver Disease, diagnosed with Diabetic - NIDDM, Unspecified essential hypertension, Other specified conditions influencing health status.? * Social History:?Tobacco Use:?Tobacco Use/Smoking?Are you a:?nonsmoker ?Additional Findings: Tobacco Non-User?Current non-smoker ?Tobacco use other than smoking?Are you an other tobacco user??No ???Miscellaneous:?Caffeine: yes, frequency:, 1-2 cups per day. ?Children: yes, 2. ?Exercise: no, housework, yard work ,Active work. ?Marital status: . 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 * Medications:?TakingCalcium-M agnesium-Vitamin D Omeprazole 20 MG Capsule Delayed Release [...] Solution 1 application Externally Once a day Ciclopirox 8 % Solution 1 application Externally Once a day Taking Bbxgmtl-Caxtynjcr-Tvymwns D Taking Omeprazole 20 MG Capsule Delayed [...] 1 application Externally Once a day Taking Ciclopirox 8 % Solution 1 application Externally Once a day Not-Taking/PRNFiber Probiotic LamISIL 250 MG Tablet 1 tablet Orally Once a day for 7 days then stop for 3 weeks repeat cycle Medication List reviewed and reconciled with the patientNot-Taking/PRN Fiber Not-Taking/PRN Probiotic Not-Taking/PRN LamISIL 250 MG Tablet 1 tablet Orally Once a day for 7 days then stop for 3 weeks repeat cycle Medication List reviewed and reconciled with the patient * Allergies:?Compazine: throat closesyes[Allergies Verified] Objective: * Vitals:?Ht: 5ft2in, Wt:122, BMI:22.31, Shoe size: 7.5, BP:110/77mm Hg, Ht-cm: 157.48 cm, Wt-k.34 kg. * Examination: ???General Examination: ?GENERAL APPEARANCE:?Reveals [...] tingling, B/L.?TINEL'S COMPRESSION:? Negative, Saphenous nerve distribution, B/L , Negative, Intermediate dorsal cutaneous nerve distribution, Medial dorsal cutaneous nerve distribution, Deep peroneal nerve distribution, Right.?Orthopedic: ?FOOT MORPHOLOGY:? Prominent, painful 1st Met-Cuneiform joint with inflammation, RIGHT.?FOOTWEAR EVALUATION:?shoe gear properties exacerbate patients foot/toe deformity.? Assessment: * Assessment: 1.?Tinea unguium - B35.1???N otes :Chronic Rx management (4)???2.?Osteoarthritis of midtarsal joint of right foot - M19.071 (Primary)???Specify :Acute problem, Uncomplicated (3)???3.?Pain in right toe(s) - M79.674???4.?Ingrown nail - L60.0???5.?Pain in right foot - M79.671???6.?Pain in right ankle and joints of right foot - M25.571???7.?Bursitis of right foot - M77.51??? Plan: * Treatment: * Procedures:?Debride Nails 1-5:?Procedure:?Due to the clinical pathology outlined in the exam findings, performance of this nail treatment is medically necessary as its management by an unskilled/untrained nonprofessional would put this patients foot and overall health at risk. Therefore, debridement to affected nail(s), as described in exam ( _T5__ ), was performed exclusively by the physician of record to reduce/remove overall nail length, girth, thickness, subungual debris, and necrotic tissue, by manual and/or electrical means through the use of a nail nipper and/or dremel stylegrinder, to a more viable healthy nail plate or bed tissue 5 nails or fewer in number. Silver nitrate was used for any petechial bleeding as necessary. Definitive antifungal treatment options, both pharmaceutical and surgical, have been reviewed and discussed with the patient. The patient solely prefers the use of intermittent/as needed professional debridement services for their nail condition and understands that additional periodic treatments may be required as necessary to maintain effective symptomatic relief - [address]1994.? * Procedure Codes:?31493 BAIRON DELGADILLO, 1-5, Modifiers: XS * Preventive Medicine:? ??Counseling:?Discussion:?-13: Office or other [...] have encouraged the patient to call the office.?Arthritis:?The patient was counseled on the various etiologies for their Arthritis including genetic, history of injury or trauma, abnormal foot biomechanics leading to excessive joint wear, and use/overuse. We discussed the various treatment options from no treatment, to topical analgesics such as Biofreeze gel, Aspercream, Voltaren gel, Lidoderm patches, CBD oils, THC creams, and Custom-compounded topical cream preparations to natural oral products such as Glucosamine Sulfate/Chondroitin/MSM/Collegen to analgesic Tylenol, to anti-inflammatory medications such as Ibuprofen/Naproxen, and the use of oral steroids if needed. Cardiac, Kidney, and GI issues were discussed RE: potential complications of oral anti-inflammatories. We discussed several other treatment options consisting of accom shoes, supportive innersoles, AFO bracing/support, cortisone injection therapy, and surgical resection of the arthritic joint(s) or fusion reconstruction if necessary. We discussed the advantages and disadvantages of conservative (vs) surgical treamtents including pain relief, improved function/activities of daily life, return to exercise to failure, expense, systemic complications, infection, skhkzqb-vcu-rmgzvyd, prolongued postop course. Patient questions re: the various treatment options available, their successes and potential failures, and petroleum terminal plant operator effects were discussed and the answers were verbally confirmed understood, recommend pt alter the lacing of their shoes to avoid pressure on painful midfoot, Recommended Topical analgesics including Biofreeze/Aspercream/Voltaren gel.? ??Screening/Special Tests:?Fall Risk?Screening:?No falls in the past year ?FALLS: Screening for Future Fall Risk?Have you had any falls with injury in the past year??No * Follow Up:?4 Months * Images: * Sign off status: Completed true * Provider:?Safia Chandler DPM Date:?2024 Generated for Reese bernard/Miky/Everton on:?09/18/2024 03:49 PM EDT History and Physical Notes * HPI (History of Present Illness) Category Sub-Category Detail Notes Category Not es Painful Nails Treatments: Ciclopirox 8% So lution, relates adherence to recom tx Pt States Last PCP Visit: Date:: 07/06/2024 Foot Pain Nature: aching, stiffness, swelling, throbbing Location: Top, Midfoot, RIGHT Duration: , several days Onset: sudden, denies traum a Course: worse Treatments: rest/alter normal da kenneth activity Examination Category Sub-Category Detail Notes Category Not es Neurological SENSORY: Neurological exa m reveals intact sensorium, pain sensation normal, vibration sensation intact, pinprick sensation is normal in the lower extremities, Pt denies, anesthesia, burning, paresthesia, tingling, B/L TINEL'S COMPRESSION: Negative, Saphenous nerve distribution, B/L , Negative, Intermediate dorsal cutaneous nerve distribution, Medial dorsal cutaneous nerve distribution, Deep peroneal nerve distribution, Right Orthopedic FOOT MORPHOLOGY: Prominent, pain ful 1st Met-Cuneiform joint with inflammation, RIGHT BUNION: FOOTWEAR EVALUATION: shoe gear propertie s exacerbate patients foot/toe deformity General Examination GENERAL APPEARANCE: Reveals a pleasant, [...]
--- OUTSIDE RECORDS SUMMARY | 2024-09-18 15:49 | XMS_ITS ---
Author Organization [facility] Address [address] [place] [address] Care Team Providers Care Life Enrichment Director Name Role Phone Po Kady CHAO Primary Care Provider Chapo Hoffman Jr REASON FOR VISIT COLON SCREENING Medications Medication SIG (Take, Route, Frequency, Duration) [...] 90 A ctive Fish Oil + D3 6366-8872 MG-UNIT 1 capsule Orally Three times a day for 30 day(s) Active Multi Vitamin - 1 tablet Orally Once a day for 30 day(s) Active Encounters Encounter Location Date Provider Diagnosis [facility] Outpatient [address] [place] [phone] 06/19/2024 Chapo Gonsalez Jr Colon cancer screening Z12.11 Assessments Encounter Date Diagnosis (ICD Code) Assessment Notes Treatment Notes Treatment Clinical Notes Section Notes 06/19/2024 Colon cancer screening (ICD-10 - Z12.11) Plan Of Treatment No Information Progress Notes * JUNITO MEJIAEDOB: (64 yo F)Acc No.[id number]:06/19/2024 COLON WITH MAC Patient:?TARSHA MEJIA Provider:?Chapo Gonsalez MD :1960???Age:63 Y???Sex:Female D ate:06/19/2024 Address:[address] [place], [place] [phone] Pcp:Kady Silver MD Subjective: * Chief Complaints: * ???1. COLON SCREENING. * Medical History:? * Medications:?Taking Fish Oil + D3 7525-9750 MG-UNIT Capsule 1 capsule Orally Three times a day , Taking Multi Vitamin - Tablet 1 tablet Orally Once a day , Taking Vitamin C Drops 60 MG Lozenge 1 lozenge Mouth/Throat Once a day , Taking Zakia Root 550 MG Capsule as directed Orally , Taking Calcium 1 tab Oral , Taking Vitamin D-3 125 MCG (5000 UT) Tablet 1 tablet Orally Once a day , Taking Omeprazole 20 MG Capsule Delayed Release Oral Objective: * Vitals:? Assessment: * Assessment: 1.?Colon cancer screening - Z12.11 (Primary)??? Plan: * Treatment: * Procedure Codes:?14200 DIAGN OSTIC COLONOSCOPY, 0529F INTRVL 3+YRS PTS CLNSCP DOCD, 0528F RCMND FLW-UP 10 YRS DOCD * * The named appointment provid er may or may not be the originator of this progress note, and it is not deemed complete until electronically signed by the appointment provider. Sign off status: Pending * Provider:?Chapo Gonsalez MD Date:?0 06/19/2024 Generated for Reese bernard/Miky/Antoniosmitting on:?09/18/2024 03:48 PM EDT
--- OUTSIDE RECORDS SUMMARY | 2024-09-18 15:49 | XMS_ITS ---
Author Organization [facility] Address [address] [place] [address] Care Team Providers Care Marine Diver Name Role Phone Kady Silver MD Primary Care Provider Chapo Hoffman Jr [phone] REASON FOR VISIT COLON SCREENING Encounters Encounter Location Date Provider Diagnosis [facility] Outpatient [address] [place] [phone] 06/01/2024 Chapo Gonsalez Jr Plan Of Treatment No Information Progress Notes * JUNITO MEJIAEDOB: (64 yo F)Acc No.[id number]:06/01/2024 COLON WITH MAC Patient:?PATRICIO MEJIAKELLEY REAVES Provider:?Chapo Gonsalez MD :1960???Age:63 Y???Sex:Female D ate:06/01/2024 Address:[address] [place], [place] [phone] Pcp:Kady Silver MD Subjective: * Chief Complaints: * ???1. COLON SCREENING. * Medical History:? Objective: * Vitals:? Assessment: Plan: * Treatment: * * The named appointment provid er may or may not be the originator of this progress note, and it is not deemed complete until electronically signed by the appointment provider. Sign off status: Pending * Provider:?Chapo Gonsalez MD Date:?1 08/02/2023 Generated for Reese bernard/Miky/eTransmitting on:?09/18/2024 03:48 PM EDT
--- OUTSIDE RECORDS SUMMARY | 2024-09-18 15:50 | XMS_ITS ---
Author Organization [facility] Address [address] [place] [address] Care Team Providers Care Hog Driver Name Role Phone Nadeem CHAO, Kady Primary Care Provider Chapo Hoffman Jr REASON FOR VISIT screening Encounters Encounter Location Date Provider Diagnosis [facility] Outpatient [address] [place] [phone] 03/16/2024 Chapo Gonsalez Jr Plan Of Treatment No Information Progress Notes * JUNITO MEJIAEDOB: (64 yo F)Acc No.[id number]:03/16/2024 COLON WITH MAC Patient:?PATRICIO MEJIAKELLEY TTE Provider:?Chapo Gonsalez MD :1960???Age:63 Y???Sex:Female D ate:03/16/2024 Address:[address] [place], [place] [phone] Pcp:Kady Silver MD Subjective: * Chief Complaints: * ???1. Screening. * Medical History:? Objective: * Vitals:? Assessment: Plan: * Treatment: * * The named appointment provid er may or may not be the originator of this progress note, and it is not deemed complete until electronically signed by the appointment provider. Sign off status: Pending * Provider:?Chapo Gonsalez MD Date:?1 Generated for Reese bernard/Miky/eTransmitting on:?09/18/2024 03:49 PM EDT
== END 2024-09-18 12:59 | disposition home or self-care (01) ==
LOC: HO.HAP 12:58
PROVIDERS: Visit Provider Internal Medicine
DX: Z46.1 Encounter for fitting and adjustment of hearing aid (principal); H90.6 Mixed conductive and sensorineural hearing loss, bilateral
CPT/HCPCS: V5259

== ENCOUNTER 2024-09-28 15:00 | Outpatient (REF) | payer SELFPAY ==
--- NOTE | 2024-09-28 15:42 | MHC.AU.HA3 ---
Hearing Instrument Follow-Up- Binaural Date of Visit: 09/28/24 Right Ear: Make, Model, Color, Serial Number: Kirsten Sparkso I90-10 [address] [facility] SN: [id number] Color: [place] Mill Washer Repair Warranty: 10/04/2027 Mill Washer Loss and Damage Warranty: 10/04/2027 [facility] Service Plan: [facility] [employer] Battery Size: 10 Type of Wax Guard: CeruStop Dispensed By: [facility] Left Ear: Make, Model, Color, Serial Number: Kirsten Sparkso I90-10 [address] [facility] SN: [id number] Color: [place] [employer] Washer Repair Warranty: 10/04/2027 Mill Washer Loss and Damage Warranty: 10/04/2027 [facility] Service Plan: [facility] [employer] Battery Size: 10 Type of Wax Guard: CeruStop Dispensed By: [facility] Follow-Up Summary: Not happy with fit of new hearing aids. Too small. Slide out of ears. Gets feedback. Has to push them back in constantly. Aids are notably smaller than her old aids. New impressions taken without incidence Au. Sending to [employer] for remake, included serial numbers of preferred aids and photo to refer to. Recommendations: Recommendations: Patient will be contacted when materials have arrived. Recommendations (Other): Needs machine operator picker appt. Diagnosis Code(s): Primary Diagnosis: H90.6 Mixed Hearing Loss, Bilateral Signature: Provider: Emiliano Martínez, [facility]
--- OUTSIDE RECORDS SUMMARY | 2024-09-28 15:42 | XMS_ITS ---
Author Organization [facility] [place] Address [address] [place] [address] Care Team Providers Care Workforce Specialist Name Role Phone Nadeem Shivanilucy Primary Care Provider Unavailabl e Black, Safia Unavailable [phone] Allergies Allergen (clinical drug ingredient) Drug/Non Drug Allergy documented on EMR Reaction Allergy Type Onset Date Status Compazine throat closes Drug Allergy Act lolly REASON FOR VISIT Painful nail(s) aggrevated by shoes causing difficulty standing/walking, Foot pain Medications Medication SIG (Take, Route, Frequency, Duration) Notes Start Date End Date Status Vjjjeqq-Fmtexrmld-Gshkwdx D Active Zakia Root 550 MG as [...] Osteoarthritis of midtarsal joint of right foot (7087989098363757 ) Osteoarthritis of midtarsal joint of right foot (M19.071) Active confirmed Vital Signs Height 5ft2in in 09/06/2024 Weight 122 lbs 09/06/2024 BMI 22.31 kg/m2 09/06/2024 Blood pressure systolic 110 mm Hg 09/07/19 25 Blood pressure diastolic 77 mm Hg 025 Procedures Procedure Date Ordered Date Performed Result Body Sit e 85738-UYLBPJL NAIL, 1-09/06/2024 N/A Encounters Encounter Location Date Provider Diagnosis [facility] [address] [address] 09/06/2024 Safia Chandler Tinea unguium B35.1 ; [...] Treatment Pending Test Test Name Order Date 40436-EDODLGK NAIL, 1-09/06/2024 Next Appt Details Follow Up: 4 Months, Reason: Provider Name:Safia Chandler , 01/10/2025 03:00:00 PM, [address] [place], [address], Procedure Notes * Category Sub-Category Detail Notes [...] necessary to maintain effective symptomatic relief - 84016 Progress Notes * Akin MEJIAtteDOB: (64 yo F)Acc No.[id number]:09/06/2024 Progress Note Patient:?ROBERTO Akin tte Provider:?Safia Chandler DPM :1960???Age:64 Y???Sex:Female D ate:09/06/2024 Address:[address] [place], [place] [phone] Pcp:Kady Silver Subjective: * Chief Complaints: * [...] work ,Active work. ?Marital status: . 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 * Medications:?TakingCalcium-M agnesium-Vitamin D Omeprazole 20 [...] 1 application Externally Once a day Taking Pjfrinb-Ivcaxfmtv-Jgiofdz D Taking Omeprazole 20 MG Capsule Delayed [...] necessary to maintain effective symptomatic relief - 68892.? * Procedure Codes:?35146 BAIRON DELGADILLO, 1-5, Modifiers: XS * Preventive [...] exercise to failure, expense, systemic complications, infection, xrfowcb-atx-rnukisz, prolongued postop course. Patient questions re: the various treatment options available, their successes and potential failures, and regional intermodal truck driver effects were discussed and the answers were [...] Chandler DPM Date:?2024 Generated for Reese bernard/Miky/Everton on:?09/28/2024 03:42 PM EDT History and Physical Notes * [...]
--- OUTSIDE RECORDS SUMMARY | 2024-09-28 15:42 | XMS_ITS ---
Author Organization [facility] Address [address] [place] [address] Care Team Providers Care Office Secretary Name Role Phone Kady Silver Primary Care Provider Safia Zhou [phone] Encounters Encounter Location Date Provider Diagnosis [address] [address] 02/16/2024 Safia Chandler Plan Of Treatment Next Appt Details Provider Name:Safia Chandler , 01/10/2025 03:00:00 PM, [address] [place] [address], [phone], Progress Notes * Hiro MEJIAeDOB: (64 yo F)Acc No.[id number]:02/16/2024 Progress Note Patient:?Akin MEJIA Provider:?Safia Chandler DPM :1960???Age:63 Y???Sex:Female D ate:02/16/2024 Address:[address] [place] [address] Pcp:Kady Silver Subjective: * Chief Complaints: * ??? * Medical History:? Objective: * Vitals:? Assessment: Plan: * Treatment: * Images: * The named appointment provid er may or may not be the originator of this progress note, and it is not deemed complete until electronically signed by the appointment provider. Sign off status: Pending * Provider:Za Chandler DPM Date:?2023 Generated for Reese bernard/Miky/Everton on:?09/28/2024 03:42 PM EDT
--- OUTSIDE RECORDS SUMMARY | 2024-09-28 15:42 | XMS_ITS | Patient Health Record ---
Author Organization [facility] [place] Address [address] [place] [address] Care Team Providers Care Environment Artist Name Role Phone Kady Silver Primary Care Provider Unavailabl e Black, Safia Unavailable [phone] Allergies Allergen (clinical drug ingredient) Drug/Non Drug Allergy documented on EMR Reaction Allergy Type Onset Date Status Compazine throat closes Drug Allergy Act lolly Reason For Referral No Information Medications Medication SIG (Take, Route, Frequency, Duration) Notes Start Date End Date Status Wycalvm-Hvadaquse-Wlesosc D Active Vitamin D3 25 MCG (1000 [...] primary osteoarthritis of the ankle and/or foot (031801390) Primary osteoarthritis, right ankle and foot (M19.071) Active confirmed Problem Localized, primary osteoarthritis of the ankle and/or foot (733632909) Primary osteoarthritis, left ankle and foot (M19.072) Active confirmed Problem 745507874 Tinea unguium (B35.1) Active confirmed Chronic Rx management (4) Problem 963079336741870 Pain in left toe(s) (M79.675) Active confirmed Problem 317035497186859 Pain in right toe(s) (M79.674) Active confirmed Problem 104603173386754 Hallux valgus (acquired), left foot (M20.12) Active confirmed Problem 887911619207827 Hallux valgus (acquired), right foot (M20.11) Active confirmed Problem Acquired hammer toe of right foot (9761184776130548 ) Other hammer toe(s) (acquired), right foot (M20.41) Active confirmed Problem Plantar nerve lesion (356855546) Lesion of plantar nerve, 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) Active confirmed Problem Osteoarthritis of midtarsal joint of right foot (1192252592928407 ) Osteoarthritis of midtarsal joint of right foot (M19.071) Active confirmed Vital Signs Blood pressure diastolic 77 mm Hg 09/06/2024 Height 5ft2in in 09/06/2024 Blood pressure systolic 110 mm Hg 09/06/2024 Weight 122 lbs 09/06/2024 BMI 22.31 kg/m2 09/06/2024 Procedures Procedure Date Ordered Date Performed Result Body Sit e 82723-Ktggzkxe Plate 05/21/2024 N/A 63226-NZNJLAE NAIL, 1-5 09/06/2024 N/A Encounters Encounter Location Date Provider Diagnosis [address] [address] 05/21/2024 Safia Chandler Tinea unguium B35.1 ; Pain in right toe(s) M79.674 ; Pain in left toe(s) M79.675 and Ingrown nail L60.[address] [address] 09/06/2024 Safia Black Tinea unguium B35.1 ; Osteoarthritis of midtarsal joint of right foot M19.071 ; Pain in right toe(s) M79.674 ; Ingrown nail L60.0 ; Pain in right foot M79.671 ; Pain in right ankle and joints of right foot M25.571 and Bursitis of right foot M77.[address] [address] 02/13/2024 Safia Black Assessments Encounter Date Diagnosis [...] X ray : Foot, right 3V 07/10/2020 13017-EHNGGUP NAIL, 1-5 05/13/2022 70571-DJSGZYP NAIL, 1-5 08/25/2023 63558-JXUKKWX NAIL, 1-5 09/06/2024 02127-Pxyhurzr Plate 05/21/2024 Next Appt Details Provider Name:Safia Paula Ramesh , 01/10/2025 03:00:00 PM, [address] [place], [address], Insurance Providers Payer Name Payer Address Payer Phone Subscriber Number Group Number Insured Name Patient Relationship to Insured Coverage Start Date Coverage End Date Blue Benefits [address] [address] [place] [address] [id number] Kathi Díaz Self - patient is the insured Medical (General) History Medical History History ICD Code Reflux ( GERD) Stomach ulcer Chicken pox Mitral valve prolapse basal cell carcinoma Surgical History Surgery Date(Month/Year) LT Inguinal hernia 1961 RT stapedectomy 1990 RT rotator cuff 2016 Rt Inguinal hernia 2002 Foot surgery 11/27
--- OUTSIDE RECORDS SUMMARY | 2024-09-28 15:42 | XMS_ITS ---
Author Organization [facility] [place] Address [address] [address] Care Team Providers Care Fourdrinier Operator Name Role Phone Kady Silver Primary Care Provider Unavailabl e Black, Safia Unavailable [phone] Allergies Allergen (clinical drug ingredient) Drug/Non Drug [...] as directed Orally Once a day Active Rtqtxrn-Qoausbigz-Gjjjazf D Active Omeprazole 20 MG as directed [...] Problem Status W/U Status Risk Notes Problem 506487597 Tinea unguium (B35.1) Active confirmed Chronic Rx management (4) Problem 728042666657523 Pain in right toe(s) (M79.674) Active confirmed Problem 717049712637429 Pain in left toe(s) (M79.675) Active confirmed Vital Signs Height 5ft2in in 05/21/2024 Weight 125 lbs 05/21/2024 BMI 22.86 kg/m2 05/21/2024 Blood pressure systolic 110 mm Hg 05/21/20 24 Blood pressure diastolic 75 mm Hg 024 Procedures Procedure Date Ordered Date Performed Result Body Sit e 84808-Gayjbiqt Plate 05/21/2024 N/A Encounters Encounter Location Date Provider Diagnosis [facility] [address] [address] 05/21/2024 Safia Chandler Tinea unguium B35.1 ; [...] 05/21/2024 Pending Test Test Name Order Date 04099-Zketbfab Plate 05/21/2024 Next Appt Details Follow Up: 2 Weeks,prn, Gracai on: Provider Name:Safia Chandler , 01/10/2025 03:00:00 PM, [address] [place] [address], [phone], Procedure Notes * Category Sub-Category Detail Notes [...] Motrin was recommended for pain or discomfort (14382), Pt DEFERS matricectomy Anesthesia , 3cc of 1 percent L idocaine Plain local anesthesic utilizing aseptic technique Location , Lateral nail merissa rTUTU Progress Notes * Akin MEJIAtteDOB: (63 yo F)Acc No.[id number]:05/21/2024 Progress Note Patient:?TEZALONZO Akin tte Provider:?Safia Chandler DPM :1960???Age:63 Y???Sex:Female D ate:05/21/2024 Address:[address] [place] [address] Pcp:Kady Silver Subjective: * Chief Complaints: * [...] other tobacco user??No * Medications:?TakingFiber Pro biotic Eyarhdh-Ualnvczuw-Wbtmyiz D Omeprazole 20 MG Capsule Delayed Release [...] a day Taking Fiber Taking Probiotic Taking Qctryqm-Dsqxbwzco-Wgaegvr D Taking Omeprazole 20 MG Capsule Delayed [...] - L60.0??? Plan: * Treatment: 2.?Ingrown nail?Procedure: 45919-Rvnoypvz Plate * Procedures:?Nail Avulsion:?Location?, Lateral nail border, [...] Motrin was recommended for pain or discomfort (08684), Pt DEFERS matricectomy.? * Procedure Codes:?96034 Avuls ion Plate, Modifiers: TA * Preventive [...] Chandler DPM Date:?2023 Generated for Reese bernard/Miky/eTransmitting on:?09/28/2024 03:41 PM EDT History and Physical Notes * [...]
== END 2024-09-28 15:01 | disposition home or self-care (01) ==
LOC: HO.HAP 15:00
PROVIDERS: Visit Provider Internal Medicine
DX: Z13.89 Encounter for screening for other disorder (principal)

== ENCOUNTER 2024-10-16 14:32 | Outpatient (REF) | payer SELFPAY ==
--- OUTSIDE RECORDS SUMMARY | 2024-10-16 15:40 | XMS_ITS ---
Author Organization [facility] Address [address] [place] [address] Care Team Providers Care Spa Supervisor Name Role Phone Kady Silver MD Primary Care Provider Chapo Hoffman Jr REASON FOR VISIT COLON SCREENING Encounters Encounter Location Date Provider Diagnosis [facility] Outpatient [address] [place] [phone] 06/01/2024 Chapo Gonsalez Jr Plan Of Treatment No Information Progress Notes * JUNITO MEJIAEDOB: (64 yo F)Acc No.[id number]:06/01/2024 COLON WITH MAC Patient:?PATRICIO MEJIAKELLEY REAVES Provider:?Chapo Gonsalez MD :1960???Age:63 Y???Sex:Female D ate:06/01/2024 Address:[address] [place], [place] [phone] Pcp:Kady Silver MD Subjective: * Chief Complaints: [...] MD Date:?1 08/02/2023 Generated for Reese bernard/Miky/eTransmitting on:?10/16/2024 03:40 PM EDT
--- OUTSIDE RECORDS SUMMARY | 2024-10-16 15:40 | XMS_ITS ---
Author Organization [facility] [place] Address [address] [address] Care Team Providers Care Elevated Guard Name Role Phone Kady Silver Primary Care Provider Unavailabl e Black, Safia Unavailable [phone] Allergies Allergen (clinical drug ingredient) Drug/Non Drug [...] as directed Orally Once a day Active Eatxoni-Dbqkkehca-Mtqokpm D Active Omeprazole 20 MG as directed [...] Problem Status W/U Status Risk Notes Problem 537191875 Tinea unguium (B35.1) Active confirmed Chronic Rx management (4) Problem 703857798210200 Pain in right toe(s) (M79.674) Active confirmed Problem 642289069166452 Pain in left toe(s) (M79.675) Active confirmed Vital Signs Height 5ft2in in 05/21/2024 Weight 125 lbs 05/21/2024 BMI 22.86 kg/m2 05/21/2024 Blood pressure systolic 110 mm Hg 05/21/20 24 Blood pressure diastolic 75 mm Hg 024 Procedures Procedure Date Ordered Date Performed Result Body Sit e 32829-Bvpryxiw Plate 05/21/2024 N/A Encounters Encounter Location Date Provider Diagnosis [facility] [address] [address] 05/21/2024 Safia Chandler Tinea unguium B35.1 ; [...] 05/21/2024 Pending Test Test Name Order Date 79010-Rtkugzvp Plate 05/21/2024 Next Appt Details Follow Up: 2 Weeks,prn, Gracia on: Provider Name:Safia Chandler , 01/10/2025 03:00:00 PM, [address] [place] [address], [phone], Procedure Notes * Category Sub-Category Detail Notes [...] Motrin was recommended for pain or discomfort (63841), Pt DEFERS matricectomy Anesthesia , 3cc of 1 percent L idocaine Plain local anesthesic utilizing aseptic technique Location , Lateral nail merissa rTUTU Progress Notes * Akin MEJIAtteDOB: (63 yo F)Acc No.[id number]:05/21/2024 Progress Note Patient:?TEZALONZO Akin tte Provider:?Safia Chandler DPM :1960???Age:63 Y???Sex:Female D ate:05/21/2024 Address:[address] [place] [address] Pcp:Kady Silver Subjective: * Chief Complaints: * [...] other tobacco user??No * Medications:?TakingFiber Pro biotic Flvlanx-Bbidujddm-Llgykhn D Omeprazole 20 MG Capsule Delayed Release [...] a day Taking Fiber Taking Probiotic Taking Wpryoxv-Nzdznwzvc-Biyjmpa D Taking Omeprazole 20 MG Capsule Delayed [...] - L60.0??? Plan: * Treatment: 2.?Ingrown nail?Procedure: 58163-Msopmppq Plate * Procedures:?Nail Avulsion:?Location?, Lateral nail border, [...] Motrin was recommended for pain or discomfort (33489), Pt DEFERS matricectomy.? * Procedure Codes:?70202 Avuls ion Plate, Modifiers: TA * Preventive [...] Chandler DPM Date:?2023 Generated for Reese bernard/Miky/eTransmitting on:?10/16/2024 03:40 PM EDT History and Physical Notes * [...]
--- OUTSIDE RECORDS SUMMARY | 2024-10-16 15:41 | XMS_ITS ---
Author Organization [facility] [place] Address [address] [place] [address] Care Team Providers Care Finishing Powder Press Operator Name Role Phone NadeemShivanilucy Primary Care Provider Unavailabl e Black, Safia Unavailable [phone] Allergies Allergen (clinical drug ingredient) Drug/Non Drug Allergy documented on EMR Reaction Allergy Type Onset Date Status Compazine throat closes Drug Allergy Act lolly REASON FOR VISIT Painful nail(s) aggrevated by shoes causing difficulty standing/walking, Foot pain Medications Medication SIG (Take, Route, Frequency, Duration) Notes Start Date End Date Status Dkymwcf-Lktthqhtp-Fcdunvv D Active Zakia Root 550 MG as [...] Osteoarthritis of midtarsal joint of right foot (2991364595815518 ) Osteoarthritis of midtarsal joint of right foot (M19.071) Active confirmed Vital Signs Height 5ft2in in 09/06/2024 Weight 122 lbs 09/06/2024 BMI 22.31 kg/m2 09/06/2024 Blood pressure systolic 110 mm Hg 09/07/19 25 Blood pressure diastolic 77 mm Hg 025 Procedures Procedure Date Ordered Date Performed Result Body Sit e 23171-UTWVPCZ NAIL, 1-09/06/2024 N/A Encounters Encounter Location Date Provider Diagnosis [facility] [address] [address] 09/06/2024 Safia Chandler Tinea unguium B35.1 ; [...] Treatment Pending Test Test Name Order Date 81071-MIWLOCJ NAIL, 1-09/06/2024 Next Appt Details Follow Up: 4 Months, Reason: Provider Name:Safia Chandler , 01/10/2025 03:00:00 PM, [address] [place], [address], Procedure Notes * Category Sub-Category Detail Notes [...] necessary to maintain effective symptomatic relief - 24209 Progress Notes * Akin MEJIAtteDOB: (64 yo F)Acc No.[id number]:09/06/2024 Progress Note Patient:?ROBERTO Akin tte Provider:?Safia Chandler DPM :1960???Age:64 Y???Sex:Female D ate:09/06/2024 Address:[address] [place], [place] [phone] Pcp:Kady Silver Subjective: * Chief Complaints: * [...] work ,Active work. ?Marital status: . 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 * Medications:?TakingCalcium-M agnesium-Vitamin D Omeprazole 20 [...] 1 application Externally Once a day Taking Rfnrtgr-Baczatajq-Rdtiwvy D Taking Omeprazole 20 MG Capsule Delayed [...] necessary to maintain effective symptomatic relief - 97519.? * Procedure Codes:?53179 BAIRON DELGADILLO, 1-5, Modifiers: XS * Preventive [...] exercise to failure, expense, systemic complications, infection, mpddcof-wau-zxhbijt, prolongued postop course. Patient questions re: the various treatment options available, their successes and potential failures, and buttermilk drier operator effects were discussed and the answers [...] Chandler DPM Date:?2024 Generated for Reese bernard/Miky/Everton on:?10/16/2024 03:41 PM EDT History and Physical Notes [...]
--- OUTSIDE RECORDS SUMMARY | 2024-10-16 15:41 | XMS_ITS | Patient Health Record ---
Author Organization [facility] dk Schlater Address [address] [place] [address] Care Team Providers Care Employee Benefits Coordinator Name Role Phone Kady Silver Primary Care Provider Unavailabl e Black, Safia Unavailable [phone] Allergies Allergen (clinical drug ingredient) Drug/Non Drug Allergy documented on EMR Reaction Allergy Type Onset Date Status Compazine throat closes Drug Allergy Act lolly Reason For Referral No Information Medications Medication SIG (Take, Route, Frequency, Duration) Notes Start Date End Date Status Iwgpsow-Xjtjsikqz-Axbxpyz D Active Vitamin D3 25 MCG (1000 [...] primary osteoarthritis of the ankle and/or foot (828748202) Primary osteoarthritis, right ankle and foot (M19.071) Active confirmed Problem Localized, primary osteoarthritis of the ankle and/or foot (168801430) Primary osteoarthritis, left ankle and foot (M19.072) Active confirmed Problem 343398345 Tinea unguium (B35.1) Active confirmed Chronic Rx management (4) Problem 002389257467045 Pain in left toe(s) (M79.675) Active confirmed Problem 592413012063847 Pain in right toe(s) (M79.674) Active confirmed Problem 583109839814715 Hallux valgus (acquired), left foot (M20.12) Active confirmed Problem 610029646392147 Hallux valgus (acquired), right foot (M20.11) Active confirmed Problem Acquired hammer toe of right foot (3698164976089462 ) Other hammer toe(s) (acquired), right foot (M20.41) Active confirmed Problem Plantar nerve lesion (232065766) Lesion of plantar nerve, 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) Active confirmed Problem Osteoarthritis of midtarsal joint of right foot (5174085801580092 ) Osteoarthritis of midtarsal joint of right foot (M19.071) Active confirmed Vital Signs Blood pressure diastolic 77 mm Hg 09/06/2024 Height 5ft2in in 09/06/2024 Blood pressure systolic 110 mm Hg 09/06/2024 Weight 122 lbs 09/06/2024 BMI 22.31 kg/m2 09/06/2024 Procedures Procedure Date Ordered Date Performed Result Body Sit e 79291-Txvsrsxr Plate 05/21/2024 N/A 11766-NNQNQVB NAIL, 1-5 09/06/2024 N/A Encounters Encounter Location Date Provider Diagnosis [address] [address] 05/21/2024 Safia Chandler Tinea unguium B35.1 ; Pain in right toe(s) M79.674 ; Pain in left toe(s) M79.675 and Ingrown nail L60.[address] [address] 09/06/2024 Safia Black Tinea unguium B35.1 ; Osteoarthritis of midtarsal joint of right foot M19.071 ; Pain in right toe(s) M79.674 ; Ingrown nail L60.0 ; Pain in right foot M79.671 ; Pain in right ankle and joints of right foot M25.571 and Bursitis of right foot M77.[address] [address] 02/13/2024 Safia Black Assessments Encounter Date Diagnosis [...] X ray : Foot, right 3V 07/10/2020 30218-YVHWPFD NAIL, 1-5 05/13/2022 97781-GEMNOES NAIL, 1-5 08/25/2023 46541-XGCIMER NAIL, 1-5 09/06/2024 07409-Eacamjiz Plate 05/21/2024 Next Appt Details Provider Name:Safia Paula Ramesh , 01/10/2025 03:00:00 PM, [address] [place], [address], Insurance Providers Payer Name Payer Address Payer Phone Subscriber Number Group Number Insured Name Patient Relationship to Insured Coverage Start Date Coverage End Date Blue Benefits [address] [address] [place] [address] [id number] Kathi Díaz Self - patient is the insured Medical (General) History Medical History History ICD Code Reflux ( GERD) Stomach ulcer Chicken pox Mitral valve prolapse basal cell carcinoma Surgical History Surgery Date(Month/Year) LT Inguinal hernia 1961 RT stapedectomy 1990 RT rotator cuff 2016 Rt Inguinal hernia 2002 Foot surgery 11/27
--- OUTSIDE RECORDS SUMMARY | 2024-10-16 15:41 | XMS_ITS ---
Author Organization [facility] Address [address] [place] [address] Care Team Providers Care Launderette Attendant Name Role Phone Kady Silver Primary Care Provider Safia Zhou [phone] Encounters Encounter Location Date Provider Diagnosis [address] [address] 02/16/2024 Safia Chandler Plan Of Treatment Next Appt Details Provider Name:Safia Chandler , 01/10/2025 03:00:00 PM, [address] [place] [address], [phone], Progress Notes * Hiro MEJIAeDOB: (64 yo F)Acc No.[id number]:02/16/2024 Progress Note Patient:?Akin MEJIA Provider:?Safia Chandler DPM :1960???Age:63 Y???Sex:Female D ate:02/16/2024 Address:[address] [place] [address] Pcp:Kady Silver Subjective: * Chief Complaints: * ??? * Medical History:? Objective: * Vitals:? Assessment: Plan: * Treatment: * Images: * The named appointment provid er may or may not be the originator of this progress note, and it is not deemed complete until electronically signed by the appointment provider. Sign off status: Pending * Provider:Za Chandler DPM Date:?2023 Generated for Reese bernard/Miky/Everton on:?10/16/2024 03:41 PM EDT
--- OUTSIDE RECORDS SUMMARY | 2024-10-16 15:41 | XMS_ITS ---
Author Organization [facility] Address [address] [place] [address] Care Team Providers Care Csr Retail Name Role Phone Po Kady CHAO Primary [...] 90 A ctive Fish Oil + D3 7127-9760 MG-UNIT 1 capsule Orally Three times a day for 30 day(s) Active Multi Vitamin - 1 tablet Orally Once a day for 30 day(s) Active Encounters Encounter Location Date Provider Diagnosis [facility] [place] [address] [place] [phone] 06/19/2024 Chapo Gonsalez Jr Colon cancer screening Z12.11 Assessments Encounter Date Diagnosis (ICD Code) Assessment Notes Treatment Notes Treatment Clinical Notes Section Notes 06/19/2024 Colon cancer screening (ICD-10 - Z12.11) Plan Of Treatment No Information Progress Notes * JUNITO MEJIAEDOB: (64 yo F)Acc No.[id number]:06/19/2024 COLON WITH MAC Patient:?TARSHA MEJIA Provider:?Chapo Gonsalez MD :1960???Age:63 Y???Sex:Female D ate:06/19/2024 Address:[address] [place], [place] [phone] Pcp:Kady Silver MD Subjective: * Chief Complaints: * ???1. COLON SCREENING. * Medical History:? * Medications:?Taking Fish Oil + D3 6901-3547 MG-UNIT Capsule 1 capsule Orally Three times [...] Z12.11 (Primary)??? Plan: * Treatment: * Procedure Codes:?16993 DIAGN OSTIC COLONOSCOPY, 0529F INTRVL 3+YRS PTS CLNSCP DOCD, 0528F RCMND FLW-UP 10 YRS DOCD * * The named appointment provid er may or may not be the originator of this progress note, and it is not deemed complete until electronically signed by the appointment provider. Sign off status: Pending * Provider:?Chapo Gonsalez MD Date:?0 06/19/2024 Generated for Reese bernard/Miky/Antoniosmitting on:?10/16/2024 03:40 PM EDT
--- OUTSIDE RECORDS SUMMARY | 2024-10-16 15:41 | XMS_ITS | Patient Health Record ---
Author Organization [facility] Address [address] [place] [address] Care Team Providers Care Glass Checker Name Role Phone Kady Silver MD Primary Care Provider Chapo Hoffman Jr Unavailable Allergies Allergen (clinical drug ingredient) Drug/Non Drug Allergy documented on EMR Reaction Allergy Type Onset Date Status Compazine Unknown Drug Allergy Active Reason For Referral No Information Medications Medication SIG (Take, Route, Frequency, Duration) Notes Start Date End Date Status Fish Oil + D3 3015-3093 MG-UNIT 1 capsule Orally Three times a [...] Problem Status W/U Status Risk Notes Problem 106618985 Colon cancer screening (Z12.11) Active confirmed Problem 763001981 Encounter for other preprocedural examination (Z01.818) Active confirmed Vital Signs Temperature 98.9 degrees Fahrenheit 02/02/2024 Blood pressure diastolic 00 mm Hg 02/02/2024 Height 5 ft 2 in in 02/02/2024 Blood pressure systolic 000 mm Hg 02/02/2024 Weight 122 lbs 02/02/2024 BMI 22.31 kg/m2 02/02/2024 Encounters Encounter Location Date Provider Diagnosis [facility] [place] Out[place] [address] [place], [place] [phone] 06/19/2024 Chapo Gonsalez Jr Colon cancer screening Z12.11 [facility] [address] [place] [address] 02/02/2024 Chapo Gonsalez Jr Encounter for other [...] [employer] [facility] [facility] [address] [address] [place] [address] [id number] KSENIA MEJIA Self - patient is the insured Medical (General) History Medical History History ICD Code Gastroesophageal reflux disease, EGD 3/0 9, no H. pylori Basal cell carcinoma Colonoscopy 06/19, hyperplastic polyp, te n-year followup Surgical History Surgery Date(Month/Year) bilateral inguinal hernia 1961 right stapedectomy 1999 right rotator cuff 2015 right foot bunion 2023
--- OUTSIDE RECORDS SUMMARY | 2024-10-16 15:42 | XMS_ITS ---
Author Organization [facility] Address [address] [place] [address] Care Team Providers Care Learning Facilitator Name Role Phone Nadeem CHAO, Kady Primary Care Provider Chapo Hoffman Jr REASON FOR VISIT screening Encounters Encounter Location Date Provider Diagnosis [facility] [place] Outpatient [address] [place] [phone] 03/16/2024 Chapo Gonsalez Jr Plan Of Treatment No Information Progress Notes * JUNITO MEJIAEDOB: (64 yo F)Acc No.[id number]:03/16/2024 COLON WITH MAC Patient:?PATRICIO MEJIAKELLEY TTE Provider:?Chapo Gonsalez MD :1960???Age:63 Y???Sex:Female D ate:03/16/2024 Address:[address] [place], [place] [phone] Pcp:Kady Silver MD Subjective: * Chief Complaints: [...] Gonsalez MD Date:?1 Generated for Reese bernard/Miky/eTransmitting on:?10/16/2024 03:41 PM EDT
--- NOTE | 2024-10-17 09:26 | MHC.AU.HA3 ---
Hearing Instrument Follow-Up- Binaural Date of Visit: 10/16/24 Right Ear: Make, Model, Color, Serial Number: Kirsten Brown I90-10 NW O [facility] SN: [id number] Color: [place] Licensed Veterinary Technician Repair Warranty: 10/04/2027 Licensed Veterinary Technician Loss and Damage Warranty: 10/04/2027 [facility] Service Plan: [facility] EMPLOYEE Battery Size: 10 Type of Wax Guard: CeruStop Dispensed By: [facility] Date of Fittin09/18/2024 Left Ear: Make, Model, Color, Serial Number: Kirsten Brown I90-10 NW O [facility] SN: [id number] Color: [place] Licensed Veterinary Technician Repair Warranty: 10/04/2027 Licensed Veterinary Technician Loss and Damage Warranty: 10/04/2027 [facility] Service Plan: [facility] EMPLOYEE Battery Size: 10 Type of Wax Guard: CeruStop Dispensed By: [facility] Date of Fittin09/18/2024 Follow-Up Summary: Upon looking at remakes, Kathi commented that the size of the remakes are no different than the originals, too bulky/stubby. After inserting remakes, she noted physical fit is still not sufficient, too loose, feel like they will work their way out of ears, do not feel as deeply inserted, noting the HAs are expensive and she wants them to fit well. Old left SETH also has stepped back vent. Discussed options, including another remake. Agreeable to trying these remakes as is for now. Ran feedback aquatics manager. Also noted she is able to hold the phone over left ear with old SETH but with original new HAs, the phone would accidently press push button causing notifications in SETH, will try with remakes. Kathi will call in a few days with update re: fit of remakes. She also mentioned she is anxious about trial period/ability to return HAs. Advised can be extended, as needed. *Called Kirsten, spoke to Rosalba in customer service. Extended trial period to 01/01/2025 (need to be shipped and received by then). Recommendations: Hearing instrument follow-up or maintenance as needed. Diagnosis Code(s): Primary Diagnosis: H90.3 Bilateral Sensorineural Hearing Loss Signature: Provider: Emiliano Pa, [facility]
== END 2024-10-16 14:33 | disposition home or self-care (01) ==
LOC: HO.HAP 14:32
PROVIDERS: Visit Provider Internal Medicine
DX: Z13.89 Encounter for screening for other disorder (principal)

== ENCOUNTER 2024-10-30 14:32 | Outpatient (REF) | payer SELFPAY ==
--- OUTSIDE RECORDS SUMMARY | 2024-10-30 14:34 | XMS_ITS ---
Author Organization [facility] Address [address] [place] [address] Care Team Providers Care Station Agent Name Role Phone Kady Silver MD Primary Care Provider Chapo Hoffman Jr [phone] REASON FOR VISIT COLON SCREENING Encounters Encounter Location Date Provider Diagnosis [facility] [place] Out[facility] [address] [place] [phone] 06/01/2024 Chapo Gonsalez Jr Plan Of Treatment No Information Progress Notes * JUNITO MEJIAEDOB: (64 yo F)Acc No.[id number]:06/01/2024 COLON WITH MAC Patient:?PATRICIO MEJIAKELLEY GAITANE Provider:?Chapo Gonsalez MD :1960???Age:63 Y???Sex:Female D ate:06/01/2024 Address:[address] [place], [place] [phone] Pcp:Kady Silver MD Subjective: * Chief Complaints: [...] MD Date:?1 08/02/2023 Generated for Reese bernard/Miky/eTransmitting on:?10/30/2024 02:34 PM EDT
--- NOTE | 2024-10-31 11:11 | MHC.AU.HA3 ---
Hearing Instrument Follow-Up- Binaural Date of Visit: 10/30/24 Right Ear: Make, Model, Color, Serial Number: Kirsten Brown I90-10 NW O [facility] SN: [id number] Color: [place] Appraiser Real Estate Repair Warranty: 10/04/2027 Appraiser Real Estate Loss and Damage Warranty: 10/04/2027 [facility] Service Plan: [facility] EMPLOYEE Battery Size: 10 Type of Wax Guard: CeruStop Dispensed By: [facility] Date of Fittin09/18/2024 Left Ear: Make, Model, Color, Serial Number: Kirsten Brown I90-10 NW O [facility] SN: [id number] Color: [place] Appraiser Real Estate Repair Warranty: 10/04/2027 [employer] Real Estate Loss and Damage Warranty: 10/04/2027 [facility] Service Plan: [facility] EMPLOYEE Battery Size: 10 Type of Wax Guard: CeruStop Dispensed By: [facility] Date of Fittin09/18/2024 Follow-Up Summary: Not happy with remakes. Same complaints as original pair, including too loose, work their way out of ear causing feedback, do not feel fully inserted. Frustrated by whole process. Still unable to assess sound quality as she has yet to be able to wear consistently due to physical fit issues. Inquired about different snack foods mixer operator. Discussed differences in sound quality, processing, noise management, etc. Agreeable to trying one more remake from [employer]. Advised extended trial until mid-December. Took pictures of old and new HAs [id number] to send as reference - see copy in chart. *Called [facility], spoke to Bradley to inquire about best way to get new HAs made same as old HAs. Reportedly no way to make new HAs identical to old HAs. However, can reference previous order numbers to make as similar as possible. Did not recommend sending old HAs in as reference. Bradley provided order #s for reference - see order form. Recommendations: Patient will be contacted when materials have arrived. Diagnosis Code(s): Primary Diagnosis: H90.3 Bilateral Sensorineural Hearing Loss Signature: Provider: Emiliano Pa, [facility]
== END 2024-10-30 14:33 | disposition home or self-care (01) ==
LOC: HO.HAP 14:32
PROVIDERS: Visit Provider Internal Medicine
DX: Z13.89 Encounter for screening for other disorder (principal)

== ENCOUNTER 2024-11-21 15:39 | Outpatient (REF) | payer SELFPAY ==
--- OUTSIDE RECORDS SUMMARY | 2024-06-01 05:00 | XMS_ITS ---
Author Organization [facility] Address [address] [place] [address] Care Team Providers Care Flat Knitter Name Role Phone Kady Silver MD Primary Care Provider Chapo Hoffman Jr REASON FOR VISIT COLON SCREENING Encounters Encounter Location Date Provider Diagnosis [facility] [place] Outpatient [address] [place] [id number] 06/01/2024 Chapo Gonsalez Jr Plan Of Treatment No Information Progress Notes * JUNITO MEJIAEDOB: (64 yo F)Acc No.[id number]:06/01/2024 COLON WITH MAC Patient: Librado BAIRES KSENIA Provider: Librado Gonsalez MD :1960 A ge:63 Y S ex:Female Date:06/01/2024 Address:[address] [place], [place] [id number] Pcp:Kady Silver MD Subjective: * Chief Complaints: * 1 . COLON SCREENING. * Medical History: Objective: * Vitals: Assessment: Plan: * Treatment: * * The named appointment provid er may or may not be the originator of this progress note, and it is not deemed complete until electronically signed by the appointment provider. Sign off status: Pending * Provider: Librado Gonsalez MD Date: 1 08/02/2023 Generated for Printi ng/Faxing/eTransmitting on: 0 11/21/2024 05:49 PM EDT
--- NOTE | 2024-11-21 16:43 | MHC.AU.HA3 ---
Hearing Instrument Follow-Up- Binaural Date of Visit: 11/21/24 Right Ear: Make, Model, Color, Serial Number: Kirsten Brown I90-10 NW O [facility] SN: [id number] Color: [place] Public Policy Mediator Repair Warranty: 10/04/2027 Public Policy Mediator Loss and Damage Warranty: 10/04/2027 [facility] Service Plan: [facility] EMPLOYEE Battery Size: 10 Type of Wax Guard: CeruStop Dispensed By: [facility] Date of Fittin09/18/2024 Left Ear: Make, Model, Color, Serial Number: Kirsten Brown I90-10 NW O [facility] SN: [id number] Color: [place] Public Policy Mediator Repair Warranty: 10/04/2027 Public Policy Mediator Loss and Damage Warranty: 10/04/2027 [facility] Service Plan: [facility] EMPLOYEE Battery Size: 10 Type of Wax Guard: CeruStop Dispensed By: [facility] Date of Fittin09/18/2024 Follow-Up Summary: Much happier with fit of remakes. Look and feel almost identical to old HAs. Successfully able to hold phone over pinna, which was an issue with the original pair. Cut off removal line at Kathi's request. Reran feedback analyzer. Noted some echo in sound quality but willing to acclimate. Discussed extended trial period. Kathi will reach out in 2-3 weeks re: her experience with these HAs. Recommendations: An additional follow-up will be scheduled, as needed. Diagnosis Code(s): Primary Diagnosis: H90.3 Bilateral Sensorineural Hearing Loss Signature: Provider: Emiliano Pa, [facility]
== END 2024-11-21 15:40 | disposition home or self-care (01) ==
LOC: HO.HAP 15:39
PROVIDERS: Visit Provider Internal Medicine
DX: Z13.89 Encounter for screening for other disorder (principal)